=== PATIENT | male | born 1935 | race Caucasian/White ===

== ENCOUNTER → 2016-12-11 11:02 | Outpatient (CLI) | payer MEDICARE ==
[2010-04-17 06:03] VITALS: BMI 31.2
== END | disposition home or self-care (01) ==
LOC: D.CT 11:02
DX: I71.4 Abdominal aortic aneurysm, without rupture (principal)

== ENCOUNTER → 2016-12-25 09:45 | Outpatient (CLI) | payer MEDICARE ==
[2010-04-17 06:03] VITALS: BMI 31.2
== END | disposition home or self-care (01) ==
LOC: D.CT 09:45
DX: S89.91XA Unspecified injury of right lower leg, initial encounter (principal); X58.XXXA Exposure to other specified factors, initial encounter; Y93.89 Activity, other specified; Y92.89 Other specified places as the place of occurrence of the external cause

== ENCOUNTER → 2017-08-30 09:33 | Outpatient (CLI) | payer MEDICARE ==
[2010-04-17 06:03] VITALS: BMI 31.2
== END | disposition home or self-care (01) ==
LOC: D.CT 09:33
DX: I71.4 Abdominal aortic aneurysm, without rupture (principal)

== ENCOUNTER → 2018-05-28 13:02 | Outpatient (CLI) | payer MEDICARE ==
[2010-04-17 06:03] VITALS: BMI 31.2
== END | disposition home or self-care (01) ==
LOC: D.CT 05-26 11:30
DX: I71.4 Abdominal aortic aneurysm, without rupture (principal)

== ENCOUNTER → 2018-06-09 08:22 | Outpatient (CLI) | payer MEDICARE ==
[2010-04-17 06:03] VITALS: BMI 31.2
== END | disposition home or self-care (01) ==
LOC: D.RT 08:00
DX: R06.02 Shortness of breath (principal)

== ENCOUNTER → 2019-06-15 10:31 | Outpatient (CLI) | payer MEDICARE ==
[2010-04-17 06:03] VITALS: BMI 31.2
== END | disposition home or self-care (01) ==
LOC: D.US 10:00
PROVIDERS: ATTEND Internal Medicine Cardiovascular Disease
DX: I71.4 Abdominal aortic aneurysm, without rupture (principal)

== ENCOUNTER 2019-08-24 17:00 | Inpatient (IN) | payer MEDICARE ==
[2019-08-23 21:15] VITALS: BP 132/69
[2019-08-23 22:30] VITALS: BP 155/91
[2019-08-24] VITALS (22 sets, daily range): BP systolic 81–158; BP diastolic 39–101; BMI 32.3
[~2019-08-24] VITALS: Ht 182.9 cm; Wt 133.3 kg
--- NOTE | ~2019-08-24 | HEMODYNAMI ---
PATIENT:PAOLO WILLINGHAM MEDICAL RECORD: [id number] : 39 [id number] ADMISSION DATE: 08/24/19 Generatedon:09/07/201911:08 Patient name: PAOLO WILLINGHAM Patient #: [id number] : 1935 Date of study: 09/07/2019 Page: Of Hemodynamic Procedure Report Patient Data Patient Demographics Procedure consent was obtained First Name: PAOLO Gender: Male Last Name: MAULIK : 1935 Patient #: [id number] Age: 83 year(s) Race: Unknown SSN: [id number] Additional ID: [id number] Contact details [address]: [address] [place] [address] State: [place] City: [place] Zip code: [address] Past Medical History Allergies: No known allergies Admission Admission Data Admission Date: 08/24/2019 Admission Time: 17:37 Arrival Date: 09/07/2019 Arrival Time: 0:00 Room #: D.2303 Insurance Payor: Medicare [facility] #: [id number] Height (in.): 71.65 BSA: 2.46 (m2) Height (cm.): 182 BMI: 38.64 (kg/m2) Weight (lbs.): 282.19 Weight (kg.): 128 Lab Results Lab Result Date: 09/07/2019 Lab Result Time: 0:00 Biochemistry Name Units Result Min Max BUN mg/dl 28 --(----)-* 7 18 Creatinine mg/dl 0.7 --(*---)-- 0.6 1.3 eGFR ml/min 90 --(*---)-- 90 120 NONAFRICAN CBC Name Units Result Min Max Hemoglobin g/dl 12 *-(----)-- 13.5 17.5 Procedure Procedure Types Cath Procedure Diagnostic Procedure LHC Coronaries only Procedure Description Procedure Date Procedure Date: 09/07/2019 Procedure Start Time: 10:45 Procedure End Time: 11:06 Procedure Staff Name Function Terry Rose MD Performing Physician Shonna Solano RN Supervisor Felting Chely Wang RT Monitor Shonna Solano RN Nurse Lili Ibarra RT Scrub Procedure Data Cath Procedure Fluoroscopy Diagnostic fluoroscopy Total fluoroscopy Time: 6.3 time: 6.3 min min Diagnostic fluoroscopy Total fluoroscopy dose: dose: 1058 mGy 1058 mGy Contrast Material Contrast Material Type Amount (ml) Isovue 300 50 Entry Location Entry Primary Successful Side Size Upsize 1 Upsize Entry Closure Sanchez ccessful Closure Location (Fr) (Fr) 2 (Fr) Remarks Device Remarks Femoral Right 5 Fr 6 Fr 6 Fr Exoseal artery Mid-Length Short Estimated blood loss: 10 ml Diagnostic catheters Device Type Used For End Catheter Placement MULTIPACK JL 4.0 5Fr Procedure catheter MULTIPACK JL 4.0 5Fr Procedure catheter DIAGNOSTIC JL 6 5Fr Procedure catheter ([id number]) MULTIPACK 3DRC 5Fr Procedure catheter MULTIPACK Pigtail 5 Fr Procedure catheter Procedure Complications No complications Procedure Medications Medication Administration Route Dosage 0.9% NaCl I.V. Oxygen 100 Lidocaine 2% added to field 20 Heparin Flush Bag added to field 2 bags (1000units/500ml NS) Diprivan 1% I.V. 55 mcg/min (Propofol) Hemodynamics Rest BSA: 2.46 (m2) HGB: 12 (g/dl) O2 Consumption: Estimated: 272.86 (ml/min) O2 Cons umption indexed: Estimated:110.92 (ml/min/m) Heart Rate: 62 (bpm) Snapshots Pre Cath Intra NCS Post Cath Vital Signs Time Heart Resp SPO2 etCO2 NIBP (mmHg) Rhythm Pain Sedation Rate (ipm) (%) (mmHg) Status Level (bpm) 10:30:15 65 13 100 0 142/87(120) NSR 0 (11) 5(A) , No pain 10:34:33 63 13 98 0 140/81(119) NSR 0 (11) 5(A) , No pain 10:39:32 60 11 97 0 Measuring NSR 0 (11) 5(A) , No pain 10:39:38 59 10 97 0 126/72(97) NSR 0 (11) 5(A) , No pain 10:41:33 62 10 100 0 126/75(96) NSR 0 (11) 5(A) , No pain 10:45:47 63 16 98 0 114/70(86) NSR 0 (11) 5(A) , No pain 10:49:59 66 24 98 0 114/62(86) NSR 0 (11) 5(A) , No pain 10:54:11 60 12 97 0 107/64(85) NSR 0 (11) 5(A) , No pain 10:58:18 59 18 98 0 123/70(89) NSR 0 (11) 5(A) , No pain 11:02:30 63 13 98 0 126/73(102) NSR 0 (11) 5(A) , No pain 11:06:40 61 14 0 140/86(124) NSR 0 (11) 5(A) , No pain Medications Time Medication Route Dose Verified Delivered Reason Notes Effectiveness by by 10:37:21 0.9% NaCl I.V. kvo Terry Kilpatrick used for [facility] Solano procedure MD HURST 10:37:43 Oxygen ventilator 100 % Terry Kilpatrick used for FiO2 [facility] Jeff Solano procedure MD HURST 10:37:57 Lidocaine 2% added to 20ml Terry Stewart for local field vial [facility] John anesthetic MD ONTIVEROS 10:38:02 Diprivan 1% I.V. 55 Terry Stewart for infus ing (Propofol) mcg/min [facility] sedation upon MD ONTIVEROS arrival to 10:38:02 Heparin Flush added to 2 bags Terry Stewart used for Bag field [facility] procedure (1000units/500ml MD ONTIVEROS NS) Procedure Log Time Note 10:01:00 Arrival Date: 09/07/2019 12:00:00 AM 10:01:27 Patient Height : 71.65 inches 10:01:32 Patient Weight : 282.19 lbs 10:01:59 Insurance Payor : Medicare 10:02:42 Lab Result : eGFR NONAFRICAN 90 ml/min 10:02:42 Lab Result : Creatinine 0.7 mg/dl 10:02:42 Lab Result : BUN 28 mg/dl 10:02:42 Lab Result : Hemoglobin 12 g/dl 10:02:48 Diagnostic Cath Status : Elective 10:03:44 Procedure Status Elective Heart Cath (OP). 10:03:47 Shonna Solano RN sent for patient. Start room use. 10:03:59 Time tracking: Regular hours (M-F 7:00 - 5:00) 10:04:03 Plan of Care:Hemodynamics will remain stable., Cardiac rhythm will remain stable., Comfort level will be maintained., Respiratory function will remain adequate., Patient/ family verbilizes understanding of procedure., Procedure tolerated without complication., Recovers from procedure without complications.. 10:04:35 Patient received from ICU to CCL 2 On ventilator. Tansferred to table in Supine position. 10:25:34 Signed procedure consent form obtained from guardian. 10:25:35 Warm blankets applied, and michelle hugger turned on for patient comfort. 10:25:36 Correct patient and procedure confirmed by team. 10:25:37 ECG and BP/O2 sat monitors applied to patient. 10:25:38 Vital chart was started 10:26:11 H&P Date Dictated: 09/06/2019 Within 30 days and on chart., H&P Addendum completed by physician on day of procedure. (MUST COMPLETE FOR ALL OUTPATIENTS). 10:26:13 Pre-procedure instructions explained to patient. 10:26:20 Family unavailable. 10:26:31 Patient allergic to No known allergies 10:26:35 Is the patient allergic to Iodine/contrast media? No. 10:26:37 Was the patient premedicated? Yes 10:26:53 Is patient on blood thinner?No 10:26:56 Patient diabetic? No. 10:27:02 Previous problem with sedation/anesthesia? No ? 10:27:04 Snore? Unknown 10:27:06 Sleep apnea? Unknown 10:27:11 Airway obstruction? Yes ? 10:27:15 Dentures? Unknown ? 10:27:31 IV patent on arrival in right hand with 0.9% NaCl at [facility]. 10:27:39 Lab results completed and on chart. 10:27:45 Stress Test: no; N/A ? 10:27:50 Right groin area was prepped with chlora-prep and draped in sterile fashion 10:27:52 Alarms reviewed by R. N. 10:27:52 Sharps counted by scrub and verified by R.N. 10:28:00 Physician paged 10:30:13 mahan cath not in pt. Shonna HURST placed a new one. 10:30:38 MAHAN 16FR w/Drainage Bag ([id number]) opened to sterile field. 10:34:27 16fr standard mahan inserted no resistance no urine obtained. 10:34:50 Physician arrived 10:34:50 --------ALL STOP TIME OUT------ 10:34:51 Final Timeout: patient, procedure, and site verified with staff and physician. All members of the team are in agreement. 10:34:56 Right groin site verified by team. 10:35:01 Fire Safety Assessment: A--An alcohol-based skin anteseptic being used preoperatively., C--Open oxygen or nitrous oxide is being used., D--An ESU, laser, or fiber-optic light is being used. 10:35:12 Physical assessment completed. ASA score P 4 - A patient with severe systemic disease that is a constant threat to life as per Terry Rose MD. 10:35:18 1) 90+ Normal kidney functon but urine findings or structural abnormalities or genetic trait point to kidney disease. 10:35:22 Maximum allowable contrast dose (3.7 X eGFR X 0.75)250 ml. 10:35:27 Sedation plan: IV Moderate Sedation Medication:Versed, Fentanyl 10:37:21 0.9% NaCl kvo I.V. was administered by Shonna Solano RN; used for procedure; Verbal order read back and verified. 10:37:43 Oxygen 100 % FiO2 ventilator was administered by Shonna Solano RN; used for procedure; Verbal order read back and verified. 10:37:57 Lidocaine 2% 20ml vial added to field was administered by Terry Rose MD; for local anesthetic; Verbal order read back and verified. 10:38:02 Diprivan 1% (Propofol) 55 mcg/min I.V. was administered by Terry Rose MD; for sedation; infusing upon arrival to Verbal order read back and verified. 10:38:02 Heparin Flush Bag (1000units/500ml NS) 2 bags added to field was administered by Terry Rose MD; used for procedure; Verbal order read back and verified. 10:39:48 Use device set Femoral Dx 10:39:49 ACIST Syringe (80537) opened to sterile field. 10:39:49 Bag Decanter (2002S) opened to sterile field. 10:39:50 Medline Cath Pack ([id number]) opened to sterile field. 10:39:51 ACIST Hand Control (84892) opened to sterile field. 10:39:52 ACIST Manifold (77399) opened to sterile field. 10:39:53 DIAGNOSTIC Multipack 5Fr catheter set ([id number]) opened to sterile field. 10:39:54 Tegaderm 4 x 4 (1626W) opened to sterile field. 10:39:56 SHEATH 5FR [place] ([id number]) opened to sterile field. 10:39:57 EMERALD Guide Wire (121-377) opened to sterile field. 10:40:48 Pt received from ICU on vent/ sedated w/ propofol infusing at 55mcg/kg/min upon arrival. EtCO2 DONNA d/t vent. All VSS. 10:40:53 Baseline sample Acquired. 10:40:58 Rhythm: sinus rhythm 10:41:00 Full Disclosure recording started 10:45:22 Procedure started. 10:45:24 Zero performed for pressure channel P1 10:45:28 Zero performed for pressure channel P1 10:45:37 Zero performed for pressure channel P1 10:45:48 Zero performed for pressure channel P1 10:45:59 Local anesthetic to right femoral artery with Lidocaine 2% by Terry Rose MD.INITIAL ACCESS ONLY 10:46:15 A 5 Fr sheath was inserted into the Right Femoral artery 10:46:24 A MULTIPACK JL 4.0 5Fr catheter was advanced over the wire and used for Procedure. 10:48:35 Catheter removed. 10:49:33 SHEATH 6FR Destination (RSR01) opened to sterile field. 10:49:48 Sheath upsized to a 6 Fr Mid-Length. 10:50:17 A MULTIPACK JL 4.0 5Fr catheter was advanced over the wire and used for Procedure. 10:52:14 Catheter removed. 10:53:18 A DIAGNOSTIC JL 6 5Fr catheter ([id number]) was advanced over the wire and used for Procedure. 10:53:22 LCA angiography performed. 10:54:46 Catheter removed. 10:55:19 A MULTIPACK 3DRC 5Fr catheter was advanced over the wire and used for Procedure. 10:55:52 RCA angiography performed. 10:57:02 Catheter removed. 10:57:10 A MULTIPACK Pigtail 5 Fr catheter was advanced over the wire and used for Procedure. 10:59:45 pigtail unable to cross valve. 10:59:46 Catheter removed. 10:59:56 Sheath upsized to a 6 Fr Short. 11:00:15 EXOSEAL 6Fr (EX600) opened to sterile field. 11:01:02 Catheter removed. 11:01:12 Sheath removed intact; hemostasis achieved with Exoseal to the Right Femoral artery. 11:01:14 Procedure ended.(Physican Out) 11:01:25 Fluoroscopy time 06.30 minutes. 11::29 Fluoroscopy dose: 1058 mGy 11::29 Flurop Dose total: 1058 11::34 Dose Area Product 25044 mGy/cm. 11:01:44 Contrast amount:Isovue 300 50ml. 11:01:46 Maximum allowable dose exceeded? No. 11:01:47 Sharps counted by scrub and verified by R.N. 11:01:49 Insertion/operative site no bleeding no hematoma. 11:01:51 Post Procedure Pulses reassessed and unchanged 11:02:01 Post-procedure physical assessment completed. ASA score P 3 - A patient with severe systemic disease as per Terry Rose MD. 11:02:05 Post procedure rhythm: unchanged. 11:02:27 Estimated blood loss: 10 ml 11:02:28 Post procedure instruction explained to patient.Patient verbalizes understanding. 11:02:35 Patient needs reinforcement of post procedure teaching. 11:02:48 Procedure type changed to Cath procedure, Diagnostic procedure, LHC, Coronaries only 11:02:50 Procedure and supply charges have been captured, reviewed, submitted and are correct. 11:05:31 Procedure and supply charges have been captured, reviewed, submitted and are correct. 11:05:59 Procedure Complication : No complications 11:06:02 Vital chart was stopped 11:06:07 [facility] Findings: mild to moderate CAD (<70%) 11:06:09 Operative report dictated upon procedure completion. 11:06:10 See physician's report for complete and final results. 11:06:16 Report given to ICU. 11:06:30 skin tear on right groin 11:06:35 Patient transfered to ICU with Bed. 11:06:44 Procedure ended. 11:06:44 Full Disclosure recording stopped 11:06:50 End room use (Document Last) Device Usage Item Name Manufacture Quantity Catalog Hospital Part Current Minimal L ot# / Number Charge Number Stock Stock Serial# Code KALLI 16FR Bard 1 [id number] 510710 883160 5 w/Drainage Bag ([id number]) ACIST Acist 1 33940 427132 006467 363423 20 Syringe Medical (39893) Systems Inc Bag Microtek 1 2001S 094619 43583 245517 5 Decanter Medical Inc. (2001S) Medline Medline 1 [id number] 436941 55123 378134 5 Cath Pack ([id number]) ACIST Hand Acist 1 25187 805301 237309 222712 5 Control Medical (03594) Systems Inc ACIST Acist 1 00090 120587 257799 911228 5 Manifold Medical (84186) Systems Inc DIAGNOSTIC Cardinal 1 [id number] 508604 18561 091354 30 Multipack Health 5Fr catheter set (VP4713) Tegaderm 4 3M 1 1626W 105242 681223 689965 5 x 4 (1626W) SHEATH 5FR Terumo 1 ZLP106 758146 275533 796010 5 [place] (HJF643) EMERALD Cardinal 1 502-455 876476 547863 578256 5 Guide Wire Health (502-455) MULTIPACK Cardinal 1 693797 5 JL 4.0 5Fr Health catheter SHEATH 6FR Terumo 1 RSR01 835263 40930 975791 5 Destination (RSR01) DIAGNOSTIC Cardinal 1 [id number] 599168 534922 802929 5 JL 6 5Fr Health catheter (316911P) MULTIPACK Cardinal 1 900757 5 3DRC 5Fr Health catheter MULTIPACK Cardinal 1 194474 5 Pigtail 5 Health Fr catheter EXOSEAL 6Fr Cardinal 1 EX600 931954 874791 652945 10 (EX600) Health Signature Audit [place] Stage Time Signature Unsigned Intra-Procedure 09/07/2019 Chely Wang 11:07:16 AM RT(R) Intra-Procedure 09/07/2019 Shonna Solano 11:07:54 AM RN Intra-Procedure 09/07/2019 Terry Carey 11:08:30 AM Jeff ONTIVEROS Signatures Performing Physician : Signature : Terry Rose MD Date : Time : Monitor : Chely Felipe Signature : RT Date : Time : Nurse : Shonna Russ RN Signature : Date : Time : [address] [place] [address]
[2019-08-24] MEDS ORDERED: LASIX40 MG PO (17:07)
[2019-08-24] MEDS ORDERED: SYNTHROID75 MCG PO (17:07)
[2019-08-24] MEDS ORDERED: CARTIA XT240 MG PO (17:07)
[2019-08-24] MEDS ORDERED: DIOVAN80 MG PO (17:08)
[2019-08-24] MEDS ORDERED: K-TAB10 MEQ PO (17:08)
[2019-08-24 17:27] LABS: BASOPHILS 0.4 % (0-2); EOSINOPHILS 0 % (0-7); HEMATOCRIT 50.7 % (42.0-54.0); HEMOGLOBIN 14.8 g/dL (13.5-17.5); IMMATURE GRANULOCYTES 4.1 % (0-5); LYMPHOCYTES 8.4 % (15-50); MCH 31.8 pg (26.0-34.0); MCHC 29.2 g/dL (31.0-37.0); MCV 108.8 fL (80.0-100.0); MEAN PLATELET VOLUME 10.5 fL (7.4-10.4); MONOCYTES 19.3 % (2-11); NEUTROPHILS 67.8 % (40-80); PLATELET COUNT 161 10x3/uL (130-400); RBC 4.66 10x6/uL (4.20-6.10); RDW 14.1 % (11.5-14.5); WBC 9.6 10x3/uL (4.8-10.8)
[2019-08-24 17:38] LABS: APTT 44.7 SECONDS (22.8-39.4); INR 1.08 (0.85-1.17); PROTIME 13.9 SECONDS (11.6-15.0)
[2019-08-24 17:47] LABS: BILIRUBIN NEGATIVE (NEGATIVE); GLUCOSE NEGATIVE (NEGATIVE); KETONE NEGATIVE (NEGATIVE); NITRITE NEGATIVE (NEGATIVE); SPECIFIC GRAVITY 1.025 (1.005-1.020); UROBILINOGEN NORMAL (NORMAL)
[2019-08-24 17:48] LABS: RED CELLS - URINE 0-5 /hpf (0-5); WHITE CELLS - URINE >50 /hpf (NEGATIVE)
[2019-08-24 17:49] LABS: BACTERIA FEW /hpf (NEGATIVE)
[2019-08-24 18:02] LABS: ALKALINE PHOSPHATASE 132 U/L (30-120); ALT (SGPT) 17 U/L (10-68); BILIRUBIN - TOTAL 0.33 mg/dL (0.2-1.3); CALCIUM 9.3 mg/dL (8.5-10.1); CARBON DIOXIDE 34.2 mmol/L (21.0-32.0); CHLORIDE - SERUM 108 mmol/L (98-107); CKMB 1.3 U/L (0.0-3.6); CREATINE KINASE 169 UL (21-232); CREATININE - SERUM 3.1 mg/dL (0.6-1.3); PROTEIN - SERUM 7.3 g/dL (6.4-8.2); SODIUM 150 mmol/L (136-145); UREA NITROGEN 28 mg/dL (7-18); eGFR NON AFRICAN AMERICAN 21 mL/min (90-120)
[2019-08-24 18:07] LABS: CALC OSMOLALITY 309 mosm/kg (275-300); GLUCOSE 210 mg/dL (74-106)
[2019-08-24 18:08] LABS: TROPONIN-I 0.073 ng/mL (0.000-0.060)
--- NOTE | 2019-08-24 18:15 | NUR ---
FAMILY AT BEDSIDE.
--- NOTE | 2019-08-24 18:36 | NUR ---
PROPOFOL TO LEFT FOREARM AT 7.3 ML/HR OR 10 MCG/KG/MIN. NOREPI TO RIGHT FOREARM AT 22.5 MCG/MIN AND VANC TO LEFT FOREARM.
--- NOTE | 2019-08-24 18:46 | NUR ---
REPORT CALLED TO ARIS LUCERO. STATES YADIEL WILL BE HIS NURSE. PT IS GOING TO ROOM 2301 PER NIC.
[2019-08-24 18:53] LABS: UDS - AMPHET NEGATIVE QUAL (NEGATIVE); UDS - BARB NEGATIVE QUAL (NEGATIVE); UDS - BENZO NEGATIVE QUAL (NEGATIVE); UDS - COCAINE NEGATIVE QUAL (NEGATIVE); UDS - OPIATE NEGATIVE QUAL (NEGATIVE); UDS - PCP NEGATIVE QUAL (NEGATIVE); UDS - THC NEGATIVE QUAL (NEGATIVE)
--- NOTE | 2019-08-24 19:21 | NUR ---
Patient arrived to unit via stretcher with ADULT [employer] IN[employer] and RT at bedside. On vent ETT 7.5 and 26 at the lip. A/C rate of 20, Fi02 60%, TV 600, and PEEP 7. GCS of 7. Pupils are equal at 2 and fixed. Localalizes painful stimuli however does not open eyes. Rt forearm PIV infusing Propofol @ 10 mcg/min. Lt forearm PIV infusing Levophed @ 22.5 mcg/min. Lung sounds are with rhonchi throughout. Sputum is thick and white. NGT in the RT nare to LIS with brown output in suction canister. Bruce catheter in place with minimal urine output; urine in the collection chamber is concentrated. Generalized edema noted. Red area noted to the LT buttock; skin does kenya. Monitoring equipment on and functioning properly. Sinus rhythm noted on cardiac cath technologist. Bed in low position. Will monitor closely.
[2019-08-24] MEDS ORDERED: IBUPROFEN800 MG PO (20:14)
--- NOTE | 2019-08-24 20:14 | NUR ---
Patient transported to CT on vent. RT at bedside to assist.
[2019-08-24] MEDS ORDERED: BAYER CHEWABLE81 MG PO (20:17)
--- NOTE | 2019-08-24 20:40 | NUR ---
Son Geraldo and nephew Brett at bedside. Gave update to patient condition and disscussed futher plan of care with family members. Both family members left contact numbers in order to be reached at and I will list below. Geraldo ([phone]) Brett ([phone]) Son states that he lives approx 2 hours away and that if a family member needed to be present on an emergent situation that Brett would be available as he lives here in [place].
--- NOTE | 2019-08-24 21:47 | NUR ---
Titrated levophed down to 17mcg/min. VSS. Will continue to monitor.
[2019-08-25] VITALS (22 sets, daily range): BP systolic 101–154; BP diastolic 62–90; BMI 32.3
--- NOTE | 2019-08-25 00:12 | NUR ---
Titrated levophed down to 5 mcg/min. VSS. Will continue to monitor.
[2019-08-25 00:56] LABS: CKMB 11.6 U/L (0.0-3.6)
[2019-08-25 01:03] LABS: CREATINE KINASE 1619 UL (21-232); TROPONIN-I 0.389 ng/mL (0.000-0.060)
--- NOTE | 2019-08-25 01:56 | NUR ---
Patient opening eyes spontaneously and biting down on ETT. Appears aggitated. Propofol titrated up to 20 mcg/kg/min. Will monitor effects of titration.
--- NOTE | 2019-08-25 02:53 | NUR ---
Patient appears to be resting on vent more comfortably since titrating propofol gtt. No obvious sign of distress noted. Bed in low position.
--- NOTE | 2019-08-25 04:10 | NUR ---
RT at bedside for ABG's per order.
[2019-08-25 06:14] LABS: BASOPHILS 0.1 % (0-2); EOSINOPHILS 0 % (0-7); HEMATOCRIT 42.4 % (42.0-54.0); HEMOGLOBIN 13.4 g/dL (13.5-17.5); IMMATURE GRANULOCYTES 0.4 % (0-5); LYMPHOCYTES 4.6 % (15-50); MCH 31.4 pg (26.0-34.0); MCHC 31.6 g/dL (31.0-37.0); MEAN PLATELET VOLUME 10.1 fL (7.4-10.4); MONOCYTES 6.7 % (2-11); NEUTROPHILS 88.2 % (40-80); RBC 4.27 10x6/uL (4.20-6.10); RDW 13.9 % (11.5-14.5); WBC 11.2 10x3/uL (4.8-10.8)
[2019-08-25 06:23] LABS: MCV 99.3 fL (80.0-100.0); PLATELET COUNT 125 10x3/uL (130-400)
[2019-08-25 06:59] LABS: ALBUMIN 2.4 g/dL (3.4-5.0); ALKALINE PHOSPHATASE 83 U/L (30-120); ALT (SGPT) 20 U/L (10-68); BILIRUBIN - TOTAL 0.78 mg/dL (0.2-1.3); CALCIUM 8.6 mg/dL (8.5-10.1); CARBON DIOXIDE 34.1 mmol/L (21.0-32.0); CHLORIDE - SERUM 109 mmol/L (98-107); CKMB 9.3 U/L (0.0-3.6); CREATININE - SERUM 3.1 mg/dL (0.6-1.3); MAGNESIUM - SERUM 2.5 mg/dL (1.8-2.4); PHOSPHOROUS 1.7 mg/dL (2.5-4.9); POTASSIUM - SERUM 4.5 mmol/L (3.5-5.1); PRO BNP 3382 pg/mL (0-450); PROTEIN - SERUM 5.8 g/dL (6.4-8.2); SODIUM 148 mmol/L (136-145); THYROID STIMULATING HORMONE 0.76 uIU/mL (0.36-3.74); eGFR NON AFRICAN AMERICAN 21 mL/min (90-120)
[2019-08-25 07:05] LABS: CALC OSMOLALITY 306 mosm/kg (275-300); CREATINE KINASE 2120 UL (21-232); GLUCOSE 160 mg/dL (74-106); TROPONIN-I 0.892 ng/mL (0.000-0.060); UREA NITROGEN 40 mg/dL (7-18)
--- NOTE | 2019-08-25 07:53 | NUR ---
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 REPOSITIIONED PATIENT FACIAL AND ORAL CARE PROVIDED MAHAN CARE COMPLETE
--- NOTE | 2019-08-25 07:55 | NUR ---
[address] HERNANDEZ OF [facility] OF [facility] OF 4.5 NO NEW ORDERS NOTED
--- NOTE | 2019-08-25 10:14 | NUR ---
1132 DR TONEY AT BEDSIDE UPDATING FAMILY MEMBER PROPOFOL TURNED OFF PER MD REQUEST EYES OPEN TO SPEECH WILL NOT TRACK
--- NOTE | 2019-08-25 10:15 | NUR ---
1015 DR ARIAS AT BEDSIDE ASSESSING PATIENT PATIENT MOVES LEGS ON BED CHEWING ON ETT
[2019-08-25 12:10] LABS: CKMB 5.2 U/L (0.0-3.6)
[2019-08-25 12:12] LABS: CREATINE KINASE 1845 UL (21-232); TROPONIN-I 1.195 ng/mL (0.000-0.060)
--- NOTE | 2019-08-25 14:25 | NUR ---
1427 DR GOLDEN SAID NO NEED TO DO ANY MORE EKGs
--- NOTE | 2019-08-25 15:00 | NUR ---
1135 TURNED PROPOFOL BACK ON FOR SEDATION PT WAS CHEWING ON EET AND APPEARED AGITATED HEART RATE INCREASING AND RR UP IN THE 30s REQUEST WAS MADE BY RT.
--- NOTE | 2019-08-25 15:04 | NUR ---
1300 DR TONEY INQUIRING ABOUT BEHAVIOR OF PATIENT WHEN THE SEDATION WAS PUT ON HOLD
--- NOTE | 2019-08-25 15:07 | NUR ---
1429 DR GOLDEN ROUNDING ON PATIENT FOR CONSULT. DR GOLDEN SUGGESTED THAT HE MAY DO HEART CATH ON SATURDAY CONSENTS PRINTED OUT REQUESTED BY DR GOLDEN
--- NOTE | 2019-08-25 15:10 | NUR ---
1500 REPOSITIONED PAIENT PROVIIDED FACIAL AND ORAL CARE. WASHED PATIENTS HAIR
--- NOTE | 2019-08-25 15:40 | MORECARE ---
CASE MANAGEMENT DISCHARGE SUMMARY PATIENT: PAOLO WILLINGHAM UNIT: [id number] ADM DATE: 08/24/19 AGE: 83 : 37 SEX: M ROOM/BED: D.2301 AUTHOR: TIARRA WEBB PHYSICIAN: REFERRING PHYSICIAN: SHILO HERNANDEZ MD DATE OF SERVICE: 08/25/19 Discharge Plan Patient Name: PAOLO WILLINGHAM Facility: [facility]:[place] : 1935 Planned Disposition: Home with Home Health Anticipated Discharge Date: Discharge Date: Expected LOS: Initial Reviewer: [email or web address] Initial Review Date: 08/24/2019 Generated: 08/25/19 4:40 pm Comments DCP- Discharge Planning Updated by [email or web address]: Romy Main on 08/25/19 2:[address] CM attempted to complete discharge planning assessment. Patient is currently on vent and sedated. No family available. CM attempted to call nephjoão Willingham [phone] but didn't get an answer. CM will continue to follow and assist as needed with discharge planning / needs. CM received a call from [facility] that the patient was under their care. They plan to resume care with him upon discharge. DCPIA - Discharge Planning Initial Assessment Updated by [email or web address]: Romy Main on 08/25/19 3:29 pm * Is the patient Alert and Oriented? Yes * How many steps to enter\exit or inside your home? Patient Name: PAOLO WILLINGHAM Page [phone] at 1540 All edits/amendments must be made on the electronic document DICTATION DATE: 08/25/19 1540 ONCOLOGY SOCIAL WORK: DOUG 08/25/19 1540 RPT#: [id number] DC DATE: STATUS: ADM IN [facility] [address] [place] [address] END OF REPORT
--- NOTE | 2019-08-25 18:52 | NUR ---
1720 TAKEN TO RADIOLOGY VIA BED FOR VQ SCAN
--- NOTE | 2019-08-25 18:52 | NUR ---
1745 RETURNED TO ROOM
--- NOTE | 2019-08-25 20:05 | NUR ---
Patient resting comfortably on vent. Opens eyes to verbal stimuli. Does not follow commands. No obivous signs of distress noted. VSS. Bed in low position. Will continue to monitor.
--- NOTE | 2019-08-25 22:25 | NUR ---
RT at bedside. Fi02 turned down to 40%.
[2019-08-26] VITALS (24 sets, daily range): BP systolic 94–156; BP diastolic 52–105
[2019-08-26 04:11] LABS: BASOPHILS 0 % (0-2); EOSINOPHILS 0 % (0-7); HEMOGLOBIN 12.6 g/dL (13.5-17.5); IMMATURE GRANULOCYTES 0.3 % (0-5); LYMPHOCYTES 2.8 % (15-50); MCH 31.1 pg (26.0-34.0); MCHC 33.2 g/dL (31.0-37.0); MEAN PLATELET VOLUME 10.4 fL (7.4-10.4); MONOCYTES 4.5 % (2-11); NEUTROPHILS 92.4 % (40-80); PLATELET COUNT 123 10x3/uL (130-400); RBC 4.05 10x6/uL (4.20-6.10); RDW 14.3 % (11.5-14.5)
[2019-08-26 04:12] LABS: MCV 93.8 fL (80.0-100.0); WBC 15.5 10x3/uL (4.8-10.8)
[2019-08-26 04:24] LABS: ALBUMIN 2.1 g/dL (3.4-5.0); ANION GAP 12.2 mmol/L (8-16); BILIRUBIN - TOTAL 0.48 mg/dL (0.2-1.3); CALCIUM 8.3 mg/dL (8.5-10.1); CARBON DIOXIDE 30.5 mmol/L (21.0-32.0); CREATININE - SERUM 3.4 mg/dL (0.6-1.3); MAGNESIUM - SERUM 2.5 mg/dL (1.8-2.4); PROTEIN - SERUM 5.4 g/dL (6.4-8.2); VANCOMYCIN - RANDOM 6.4 ug/mL (10.0-20.0)
[2019-08-26 04:29] LABS: PHOSPHOROUS 2.5 mg/dL (2.5-4.9); POTASSIUM - SERUM 3.7 mmol/L (3.5-5.1)
--- NOTE | 2019-08-26 07:00 | NUR ---
BECOMES RESTLESS, MOVING ALL EXTREMITIES WHEN DISTURBED. DOES NOT OBEY COMMANDS, TRIED TO OPEN EYES WHEN ASKED TOO. ETT SECURE TO VENT. BILATERAL LUNG SOUNDS EQUAL. ABD LARGE DITENEDED LOOKING, NG TO LOW INTERMITTENT SUCTION WITH GREEN DRAINAGE IN TUBING. MAHAN CATH PATENT. DIPRIVAN INFUSING AT 20 MCG/KG/MIN PER RIGHT FOREARM AND 1/2 NS AT 100 ML HOUR. NO SWELLING OR REDNESS NOTED. SCD ON LOWER LEGS. TIGHT MUSCLES WHEN REPOSITIONED. HEAD OF BED ELEVATED 30 DEGREES
--- NOTE | 2019-08-26 09:00 | NUR ---
COMPLETE HIBCLENS BATH GIVEN, MAHAN CATH CARE. NYSTATIN POWDER TO GROIN, UNDER BREAST FOR RED RASH AREA. PATEINT TOLERATES POORLY BECOMES RESTLESS. DIPRIVAN BOLUS GIVEN. NO SKIN BREAKDOWN NOTED. SCD REAPPLIED TO LOWER LEGS. FAMILY HERE UPDATE GIVEN.
--- NOTE | 2019-08-26 09:30 | NUR ---
DIPRIVAN TURNED DOWN TO 5 MCG/KG/MIN FOR CPAP TRAIL.
--- NOTE | 2019-08-26 10:30 | NUR ---
DIPIRVAN TURNED OFF.
--- NOTE | 2019-08-26 11:00 | NUR ---
TOLERATING CPAP ON VENT RESP 16. TV GREATER THAN 1000ML. NO DISTRESS AT THIS TIME
--- NOTE | 2019-08-26 12:30 | NUR ---
Nutrition follow-up: CPAP trials today NPO Labs reviewed Wt: 238# Will need nutrition support started within 24 hours if pt remains intubated. RDN following.
--- NOTE | 2019-08-26 12:30 | NUR ---
PATIENT RESP RATE IN 40'S, HEART RATE 117, BLOOD PRESSURE 150/100'S, SEDATION RETURNED. TO 20 MCQ KG/MIN. BACK ON AC WITH SAME SETTINGS. FAMILY HERE UPDATE GIVEN
--- NOTE | 2019-08-26 12:44 | NUR ---
DR. HERNANDEZ NOTIFIED OF ELEVATED TEMP. ORDERS RECEIVED.
--- NOTE | 2019-08-26 13:59 | NUR ---
TYLENOL RECTAL SUPP GIVEN FOR ELEVATED TEMP. TOLERATED FAIR. RESTING COMFORTABLY ON DIPRIVAN AT 20 MCG/KG/MIN. NEW DIPRIVAN TUBING
--- NOTE | 2019-08-26 15:00 | NUR ---
became restless when oral care performed. reaches for ett when stimulated. temp down
--- NOTE | 2019-08-26 19:00 | NUR ---
REPORT RECEIVED. PT SEDATED, ON VENT. AROUSES TO VOICE, NO ACUTE DISTRESS NOTED. SOFT WRIST RESTRAINTS BILAT IN PLACE, PIV IN LEFT WRIST AND RT HAND INFUSING, SEE IV FLOWSHEET. ASSESSMENT COMPLETED, SEE FLOWSHEET. NO ACUTE DISTRESS NOTED. WILL CONTINUE TO MONITOR.
--- NOTE | 2019-08-26 21:00 | NUR ---
REPOSITIONED FOR COMFORT, PT SEDATED, AROUSES TO VOICE.
--- NOTE | 2019-08-26 23:00 | NUR ---
PT REPOSITIONED FOR COMFORT, NO ACUTE DISTRESS NOTED.
[2019-08-27] VITALS (24 sets, daily range): BP systolic 117–161; BP diastolic 50–101
--- NOTE | 2019-08-27 01:00 | NUR ---
AROUSES TO VERBAL STIMULI. REMAINS SEDATED AND ON VENT. RESTRAINTS REMOVED AND THAN PLACED BACK IN PLACE. REPOSITIONED FOR COMFORT.
--- NOTE | 2019-08-27 03:00 | NUR ---
LAYING IN BED WITH EYES CLOSED. OPENS EYES WITH VERBAL STIMULI. RESTRAINS REMOVED AND REPOSITIONED PT. RESTRAINTS PUT BACK IN PLACE. PUTS LEFT LEG OFF BED. PLACED BACK ON BED AND CONT TO PUT LEG OFF BED. NO OBVIOUS S/S OF DISTRESS OBSERVED.
[2019-08-27 04:22] LABS: BASOPHILS 0 % (0-2); EOSINOPHILS 0 % (0-7); HEMATOCRIT 36.5 % (42.0-54.0); HEMOGLOBIN 12.7 g/dL (13.5-17.5); IMMATURE GRANULOCYTES 0.2 % (0-5); LYMPHOCYTES 2.6 % (15-50); MCH 31.6 pg (26.0-34.0); MCHC 34.8 g/dL (31.0-37.0); MCV 90.8 fL (80.0-100.0); MEAN PLATELET VOLUME 10.7 fL (7.4-10.4); MONOCYTES 6.8 % (2-11); NEUTROPHILS 90.4 % (40-80); PLATELET COUNT 110 10x3/uL (130-400); RBC 4.02 10x6/uL (4.20-6.10); WBC 12.4 10x3/uL (4.8-10.8)
[2019-08-27 04:46] LABS: ALBUMIN 2.3 g/dL (3.4-5.0); ANION GAP 11.2 mmol/L (8-16); BILIRUBIN - TOTAL 0.54 mg/dL (0.2-1.3); CALCIUM 7.9 mg/dL (8.5-10.1); CARBON DIOXIDE 30.9 mmol/L (21.0-32.0); CREATININE - SERUM 2.6 mg/dL (0.6-1.3); MAGNESIUM - SERUM 2.6 mg/dL (1.8-2.4); PROTEIN - SERUM 5.6 g/dL (6.4-8.2); VANCOMYCIN - RANDOM 11.5 ug/mL (10.0-20.0)
[2019-08-27 04:47] LABS: PHOSPHOROUS 3.6 mg/dL (2.5-4.9); POTASSIUM - SERUM 3.1 mmol/L (3.5-5.1)
--- NOTE | 2019-08-27 07:00 | NUR ---
ASSESSMENT COMPLETE PER FLOWSHEET. PT ON VENT.
--- NOTE | 2019-08-27 11:58 | NUR ---
EXTUBATED TO 12/5 40 PERCENT FIO2 BIPAP.
--- NOTE | 2019-08-27 13:37 | NUR ---
IV OUT PER PATIENT. RESITED L WRIST.
--- NOTE | 2019-08-27 14:00 | NUR ---
1400 08/25/19 VS 102/62 MAP 73 HR 90 02 SAT 100%
--- NOTE | 2019-08-27 14:53 | NUR ---
BIPAP ON AT 40 PERCENT. O2 SAT 99 PERCENT. PT VOICES NO C/O AT TIME.
--- NOTE | 2019-08-27 18:36 | MORECARE ---
CASE MANAGEMENT DISCHARGE SUMMARY PATIENT: PAOLO WILLINGHAM UNIT: [id number] ADM DATE: 08/24/19 AGE: 83 : 37 SEX: M ROOM/BED: D.2301 AUTHOR: JON,DOC PHYSICIAN: REFERRING PHYSICIAN: SHILO HERNANDEZ MD DATE OF SERVICE: 08/27/19 Discharge Plan Patient Name: PAOLO WILLINGHAM Facility: [facility]:[place] : 1935 Planned Disposition: Home with Home Health Anticipated Discharge Date: Discharge Date: Expected LOS: Initial Reviewer: [email or web address] Initial Review Date: 08/24/2019 Generated: 08/27/19 7:36 pm DCP- Discharge Planning Updated by GIL Main on 08/25/19 2:[address] CM attempted to complete discharge planning assessment. Patient is currently on vent and sedated. No family available. CM attempted to call nephjoão Willingham [phone] but didn't get an answer. CM will continue to follow and assist as needed with discharge planning / needs. CM received a call from [facility] that the patient was under their care. They plan to resume care with him upon discharge. DCPIA - Discharge Planning Initial Assessment Updated by [id number]: Romy Main on 08/27/19 6:31 pm * Is the patient Alert and Oriented? No * How many steps to enter\exit or inside your home? * PCP JASMIN JHA * Pharmacy [facility] / [facility] * Preadmission Environment Home Alone * ADLs Independent * Other Equipment HOME/ PORTABLE 02, NEBULIZER * List name and contact numbers for known caregivers / representatives who currently or will assist patient after discharge: BRETT Mustafa NEPHEW - [phone] SANDRO WILLINGHAM SON - [phone] * Verbal permission to speak to the caregivers and representatives has been obtained from the patient. N/A * Community resources currently utilized Home Health * Please name any agencies selected above. [facility] * Additional services required to return to the preadmission environment? No * Can the patient safely return to the preadmission environment? Yes * Has this patient been hospitalized within the prior 30 days at any hospital? No Coverage Notice Reviewer: [id number] - Romy Warer Notice Issued Date-Time: 08/27/2019 18:24 Notice Type: Patient Choice Letter Notice Delivered To: Family Member Relationship to Patient: Nephew Online Banking Specialist Name: Brett Willingham Delivery Method: HAND - Hand Delivered Lisa Days: Prior Verbal Notification: Recipient Understood Notice: Yes Recipient Signature: Yes Med Rec Note Co-signed by Attending: Coverage Notice Comment: [facility] Last DP export: 08/25/19 2:40 p Patient Name: PAOLO WILLINGHAM Page [id number] at 1836 All edits/amendments must be made on the electronic document DICTATION DATE: 08/27/191835 INSURANCE HEALTHCARE CONSULTANT: DOUG 08/27/191835 RPT#: [id number] DC DATE: STATUS: ADM IN [facility] [address] [place] [address] END OF REPORT
--- NOTE | 2019-08-27 18:43 | MORECARE ---
CASE MANAGEMENT DISCHARGE SUMMARY PATIENT: PAOLO WILLINGHAM UNIT: [id number] ADM DATE: 08/24/19 AGE: 83 : 37 SEX: M ROOM/BED: D.2301 AUTHOR: JON,DOC PHYSICIAN: REFERRING PHYSICIAN: SHILO HERNANDEZ MD DATE OF SERVICE: 08/27/19 Discharge Plan Patient Name: PAOLO WILLINGHAM Facility: [facility]:[place] : 1935 Planned Disposition: Home with Home Health Anticipated Discharge Date: Discharge Date: Expected LOS: Initial Reviewer: [email or web address] Initial Review Date: 08/24/2019 Generated: 08/27/19 7:43 pm Comments DCP- Discharge Planning Updated by [email or web address]: Romy Main on 08/27/19 5:[address] Patient Name: PAOLO WILLINGHAM Admission Status: ER Accout number: [id number] Admission Date: 08-24-2019 : 1935 Admission Diagnosis:SEPSIS, UNSPECIFIED ORGANISM Attending: SHILO HERNANDEZ Current LOS: 3 Anticipated DC Date: Planned Disposition: Home with Home Health Primary Insurance: [facility] [employer] Discharge Planning Comments: CM met with patient and lisseth Brett Wright to complete initial dc planning assessment. CM educated patient on the CM role and verbal consent given by patient to complete assessment. CM verified patient's address, phone number, and emergency contact phone numbers. Patient lives at home independently. Patient live in small apartment on Brett's property. CM discussed availability of home health, rehab services, and medical equipment. Patient has home health with [facility] and plans to resume upon discharge. DEBBIE signed. Patient has home / portable 02and nebulizer with unknown provider. Brett is concerned that patient may require more care that HH can provide upon discharge. CM explained that we will re-evaluate closer to discharge. CM will continue to follow and will assist as needed with dc plans/needs. Warehouse Clerk: Romy Main DCP- Discharge Planning Updated by [id number]: Romy Main on 08/25/19 2:[address] CM attempted to complete discharge planning assessment. Patient is currently on vent and sedated. No family available. CM attempted to call lisseth Willingham [phone] but didn't get an answer. CM will continue to follow and assist as needed with discharge planning / needs. CM received a call from [facility] that the patient was under their care. They plan to resume care with him upon discharge. DCPIA - Discharge Planning Initial Assessment Updated by [email or web address]: Romy Main on 08/27/19 6:31 pm * Is the patient Alert and Oriented? No * How many steps to enter\exit or inside your home? * PCP JASMIN JHA * Pharmacy [facility] * Preadmission Environment Home Alone * ADLs Independent * Other Equipment HOME/ PORTABLE 02, NEBULIZER * List name and contact numbers for known caregivers / representatives who currently or will assist patient after discharge: BRETT WILLINGHAM - NEPHEW - [phone] SANDRO WILLINGHAM - SON - [phone] * Verbal permission to speak to the caregivers and representatives has been obtained from the patient. N/A * Community resources currently utilized Home Health * Please name any agencies selected above. [facility] * Additional services required to return to the preadmission environment? No * Can the patient safely return to the preadmission environment? Yes * Has this patient been hospitalized within the prior 30 days at any hospital? No Coverage Notice Reviewer: [id number] - Romy Main Notice Issued Date-Time: 08/27/2019 18:24 Notice Type: Patient Choice Letter Notice Delivered To: Family Member Relationship to Patient: Nephew Baggage Agent Supervisor Name: Brett Willingham Delivery Method: HAND - Hand Delivered Lisa Days: Prior Verbal Notification: Recipient Understood Notice: Yes Recipient Signature: Yes Med Rec Note Co-signed by Attending: Coverage Notice Comment: Resume Chaitanya Last DP export: 08/27/19 5:36 p Patient Name: PAOLO WILLINGHAM Page [id number] at 1843 All edits/amendments must be made on the electronic document DICTATION DATE: 08/27/191842 FUNDRAISING COORDINATOR: DOUG 08/27/191842 RPT#: [id number] DC DATE: STATUS: ADM IN [facility] [address] [place] [address] END OF REPORT
--- NOTE | 2019-08-27 19:00 | NUR ---
REPORT RECEIVED, PT AGITATED, FOLLOWS COMMANDS, CONFUSED TO TIME AND SITUATION. REORIENTED NEEDED. ASSESSMENT COMPLETE, SEE FLOWSHEET. PIV IN LEFT HAND, SEE IV FLOWSHEET. WILL CONTINUE TO MONITOR.
--- NOTE | 2019-08-27 21:00 | NUR ---
PT AGITATED, BIPAP IN PLACE AT THIS TIME.
--- NOTE | 2019-08-27 23:00 | NUR ---
PT RESTLESS, PULLING AT LINES AND BIPAP. REPOSITIONED FOR COMFORT. FULL BED BATH GIVEN.
[2019-08-28] VITALS (24 sets, daily range): BP systolic 122–179; BP diastolic 45–101
--- NOTE | 2019-08-28 01:00 | NUR ---
PT RESTLESS, BIPAP IN PLACE. WILL CONTINUE TO MONITOR.
--- NOTE | 2019-08-28 03:00 | NUR ---
PT RESTLESS, CONTINUOUSLY PULLING OFF MONITORING EQUIPMENT.
[2019-08-28 03:36] LABS: BASOPHILS 0 % (0-2); EOSINOPHILS 0 % (0-7); HEMATOCRIT 39.9 % (42.0-54.0); HEMOGLOBIN 13.4 g/dL (13.5-17.5); IMMATURE GRANULOCYTES 0.3 % (0-5); MCH 31.8 pg (26.0-34.0); MCHC 33.6 g/dL (31.0-37.0); MEAN PLATELET VOLUME 10.4 fL (7.4-10.4); MONOCYTES 4.4 % (2-11); NEUTROPHILS 89.3 % (40-80); PLATELET COUNT 92 10x3/uL (130-400); RBC 4.22 10x6/uL (4.20-6.10); RDW 14.2 % (11.5-14.5); WBC 11.5 10x3/uL (4.8-10.8)
[2019-08-28 03:38] LABS: MCV 94.5 fL (80.0-100.0)
[2019-08-28 03:50] LABS: ALBUMIN 2.6 g/dL (3.4-5.0); ANION GAP 9.5 mmol/L (8-16); BILIRUBIN - TOTAL 1.08 mg/dL (0.2-1.3); CALCIUM 8.3 mg/dL (8.5-10.1); CARBON DIOXIDE 32.5 mmol/L (21.0-32.0); CREATININE - SERUM 1.8 mg/dL (0.6-1.3); PROTEIN - SERUM 6.1 g/dL (6.4-8.2); VANCOMYCIN - RANDOM 13.8 ug/mL (10.0-20.0)
[2019-08-28 03:53] LABS: PLATELET ESTIMATE DECREASED
--- NOTE | 2019-08-28 05:00 | NUR ---
PT PULLED OUT PIV, NEW PIV SITED IN RIGHT FOREARM.
--- NOTE | 2019-08-28 07:00 | NUR ---
REPORT RECEIVED FROM ARIS KO. PT THEN TRANSFERRED TO ROOM 2303. PT HAS IV TO RIGHT FOREARM WITH 1/2NS AT 100ML/HR. PT HAS EDEMA IN ALL EXTREMITIES. PT HAS BEEN ON BIPAP. RT IN TO TRY PT ON HIGH FLOW O2. ON 7L CURRENTLY. PT HAS BRUISING TO CHEST FROM COMPRESSIONS WHEN PT WAS CODED IN EMS. PT HAS EXCORIATION TO GROIN. VSS. WILL CONTINUE TO MONITOR. CALL LIGHT IN REACH.
--- NOTE | 2019-08-28 09:17 | NUR ---
Nutrition follow-up: Pt extubated 08/26; remains NPO at this time Labs reviewed Wt: 238# Will need nutrition support started today unless oral diet able to begin RDN following.
--- NOTE | 2019-08-28 10:00 | NUR ---
DR TONEY STATED NO SWALLOW EVAL, THAT PT IS NOT ALERT ENOUGH TO DO THAT. ASKED RT TO PUT PT BACK ON BIPAP. WILL CONTINUE TO MONITOR.
--- NOTE | 2019-08-28 13:29 | NUR ---
PT RESTING QUIETLY WITH BIPAP ON. VSS. WILL CONTINUE TO MONITOR.
--- NOTE | 2019-08-28 14:27 | NUR ---
SON AT BEDSIDE. UPDATED. ABG TAKEN BY IRIS WHITE. WILL CONTINUE TO MONITOR.
--- NOTE | 2019-08-28 19:00 | NUR ---
ASSESSMENT COMPLETED. DENIES ANY NEEDS. BIPAP ON AT 40%. CALL LIGHT IN REACH
--- NOTE | 2019-08-28 21:00 | NUR ---
REQUESTING FOOD. EDUCATED ON NEEDING SALES REVIEW CLERK EVAL FIRST. VERBALIZED UNDERSTANDING BUT CONT TO ASK 3 MORE TIMES.
--- NOTE | 2019-08-28 23:00 | NUR ---
RE-ASSESSMENT COMPLETED. DENIES ANY NEEDS. NO CHANGES SINCE LAST ASSESSMENT
[2019-08-29] VITALS (23 sets, daily range): BP systolic 124–181; BP diastolic 45–128
--- NOTE | 2019-08-29 01:00 | NUR ---
PATIENT PLACED ON NC HF AT 9L, TOOK OFF BIPAP. PATIENT WOULD DROP IN O2 SAT BUT WOULD COME BACK UP. GIVEN LEMON SWAB, PROVIDED ORAL CARE. CHG BATH WITH COMPLETE LINEN CHANGE PROVIDED. PATIENT CONFUSED TO TIME
--- NOTE | 2019-08-29 03:00 | NUR ---
RE-ASSESSMENT COMPLETED. NO CHANGES SINCE LAST ASSESSMENT. REPOSITIONED.
--- NOTE | 2019-08-29 05:00 | NUR ---
DENIES COMPLAINTS, EASILY WAKES. CALL LIGHT IN REACH
[2019-08-29 08:11] LABS: BASOPHILS 0 % (0-2); EOSINOPHILS 0 % (0-7); HEMATOCRIT 39.4 % (42.0-54.0); HEMOGLOBIN 13.2 g/dL (13.5-17.5); IMMATURE GRANULOCYTES 0.2 % (0-5); LYMPHOCYTES 7.3 % (15-50); MCH 31.7 pg (26.0-34.0); MCHC 33.5 g/dL (31.0-37.0); MCV 94.5 fL (80.0-100.0); MEAN PLATELET VOLUME 11.9 fL (7.4-10.4); MONOCYTES 4.1 % (2-11); NEUTROPHILS 88.4 % (40-80); PLATELET COUNT 97 10x3/uL (130-400); RBC 4.17 10x6/uL (4.20-6.10); WBC 9.3 10x3/uL (4.8-10.8)
[2019-08-29 08:22] LABS: ANION GAP 9.6 mmol/L (8-16); BILIRUBIN - TOTAL 1.13 mg/dL (0.2-1.3); CALCIUM 7.9 mg/dL (8.5-10.1); CARBON DIOXIDE 26.8 mmol/L (21.0-32.0); CREATININE - SERUM 1.2 mg/dL (0.6-1.3); MAGNESIUM - SERUM 2.9 mg/dL (1.8-2.4); PHOSPHOROUS 4.2 mg/dL (2.5-4.9); POTASSIUM - SERUM 4.4 mmol/L (3.5-5.1); PROTEIN - SERUM 5.6 g/dL (6.4-8.2); VANCOMYCIN - RANDOM 13.6 ug/mL (10.0-20.0)
[2019-08-29 08:23] LABS: ALBUMIN 1.9 g/dL (3.4-5.0); PLATELET ESTIMATE DECREASED
--- NOTE | 2019-08-29 15:28 | NUR ---
0700 REPORT RECIEVED AND CARE ASSUMED OF PATIENT.. PT IS WITH 40% BIPAP O2.. HE IS VERT REPONSIVE TO VERBAL STIMULI BUT IS CONFUSED TO TIME.. 0800 FAMILY IN TO SEE PT .. UPDATE IS GIVEN.. PT IS CONVERSING WITH HIM.. 0900 MEDS HUNG PER E AUG 1029 PT SAT DROPPING.... RT AT BEDSIDE.. ABGs DRAWN.. O2 INCREASED BY THEM AT THIS TIME TO 100% AND ORDERS FOR CTA RECIEVED.. 1130 PT IS AWAKE AND WIHTOUT DISTRESS AT THIS TIME.. 1230 PT IS REQUESTING LUNCH TRAY EXPLAINED THAT SWALLOW EVAL HAS BEENVISITOR 1430 NO CHANGE IN PT STATUS... [address] HERNANDEZ FOR CTA CHEST DUE TO PREVIOUS SOB EPISODE.. 1300 WIHTOUT
--- NOTE | 2019-08-29 18:22 | NUR ---
1600 PT PLACED ON HIGH FLOW NASAL CANNULA AT 11 LITERS BY RT 1615 FAMILY IN TO SEE PT... PT CONVERSING WITH THEM .. 1700 O2 SAT 85% O2 INCREASED TO 13 LITERS PER NASAL CANNULA.. HYDALAZINE 0.5 IV GIVEN FOR BP 1745 HEAD START DIRECTOR HERE FOR PT .. CONTINUES 13 L HF NC... FAMILY UPDATED AND GONE.. PT TRANSPORTED TO CT SCAN VIA BED.. [address] SCAN VIA BED.. PT MENTATION IS NOT SHARP SEEMING.. AND SAT IS 84% PLACED BACK ON BIPAP AT 100% BY RT...BP 153/85
--- NOTE | 2019-08-29 19:15 | NUR ---
PT IS RESTING IN BED WITH EYES OPEN. BIPAP IS ON AT 100%. O2 SATURATION IS ONLY AT 90-92%. HE IS A&OX4. OTHER VITAL SIGNS ARE STABLE. HAD ASSISTANCE TO PULL HIM UP IN BED AND REPOSITIONED HIM TO HIS RIGHT SIDE SLIGHLTY. HE TOLERATED WELL. WILL PERFORM MY FULL ASESSMENT AND DOUCMENT. BED IS LOW,SIDE RAILSX2,CALL LIGHT WITHIN REACH.
--- NOTE | 2019-08-29 20:18 | NUR ---
CALLED AND ASKED FOR AN UPDATE. INFORMED HIM OF THE CTA RESULTS AND PT VS. T.O TO CHANGE IPAP SETTING FROM 14 TO 18 AND THE EPAP SETTING FROM 7 TO 10 ON BIPAP MACHINE. HE VOICED TO ALSO KEEP THE PT NPO BECAUSE HE IS GOING TO HAVE A BRONCOSCOPY IN THE MORNING. T.O READ BACK CORRECT.
--- NOTE | 2019-08-29 20:24 | NUR ---
CHANGED BIPAP SETTINGS PER T.O. PT IS AWAKE AND WATCHING TV. VSS. I ALSO PERFOMRED ORAL CARE AT THIS TIME BC OXYGEN SATURATION IS 95%. PT OXYGEN SATURATION STAY AT 90% WHILE CELANING AND I APPLIED BIPAP MASK BACK ON. NO OTHER NEEDS VOICED OR CONCERNS VOICED. BED IS LOW,SIDE [id number],CALL LIGHT WIHTIN REACH. WILL CONINTUE TO MONITOR
--- NOTE | 2019-08-29 21:18 | NUR ---
PROVIDED ORAL CARE AGAIN PER REQUEST. VSS. NO OTHER NEEDS VOICED. HE SAID"THANK YOU THAT IS BETTER". BED IS LOW,SIDE RAILSX2,CALL LIGHT WITHIN REACH. WILL CONTINUE TO MONITOR
--- NOTE | 2019-08-29 21:45 | NUR ---
I TALKED WITH THE PT AND VERBALIZED THAT WOULD LIKE TO DO A BRONCOSCOPY IN THE MORINING BECAUSE PT TOLD ME "I AM GOING TO GO HOME TOMORROW". WHEN I ASKED WHY HE WANTS TO GO HOME TOMMORROW HE VOICES"THERE IS NOTHING MORE YALL CAN DO FOR ME HERE". PT IS A&OX4 AT THIS TIME. VSS. I TOLD HIM THAT THE BRONSCOSCOPY COULD HELP. HE VOICED "NO I JUST WANT TO GO HOME AND BE AT [facility] THERE, IF I GO THEN I WANT TO GO THERE". I TRIED TO ASSESS IF THE PT WAS GIVING UP, HE VOICED "NO, I JUST WANT TO ENJOY WHAT TIME I HAVE LEFT AT HOME". I VOICED I COULD I UNDERSTAND THAT. THE PT IS CALM SEEMS ASURRED IN HIS DECISION. I VERBALIZED IF HE IS OK WITH STAYING TONIGHT AND RESTING. HE VERBALIZED "YES, THAT IS FINE, BUT I WOULD LIKE TO GO HOME IN THE MORNING". I VOICED THAT I WOULD LET THE DOCTOR KNOW IN THE MORINIGN OF HIS REQUEST. HE VOICED"THANK YOU HUN". BED IS LOW,SIDE RAILSX2,CALL LIGHT WITHIN REACH. WILL CONTINUE TO MONITOR
--- NOTE | 2019-08-29 23:27 | NUR ---
RETURNED CALL TO PT CO-RAFTSMAN, ANGIE REGARDING REQUEST TO SPEAK WITH CHARGE NURSE. ANGIE WAS UNABLE TO PROVIDE PT PASSWORD OR GET AHOLD OF FAMILY. EXPLAINED HOSPITAL POLICY REGARDING PT PRIVACY/HIPPA, HE VERBALIZED UNDERSTANDING.
--- NOTE | 2019-08-29 23:50 | NUR ---
pt is resting in bed with eyes closed bipap on. VSS. BED IS LOW,SIDE RIALSX2,CALL LIGHT WITHIN REACH. WILL CONTINUE TO MONITOR
[2019-08-30] VITALS (24 sets, daily range): BP systolic 80–187; BP diastolic 33–114
--- NOTE | 2019-08-30 01:30 | NUR ---
PT IS RESTING IN BED WITH EYES CLOSED. BIPAP IS ON. VSS. BED IS LOW,SIDE RAILSX2,CALL LIGHT WITHIN REACH. WILL CONITNUE TO MONITOR
--- NOTE | 2019-08-30 03:00 | NUR ---
pt is resting in bed with eyes closed. bipap is on. VSS. will perform caio checks per order and will perfomr re-assesment and document bed is low,side railsx2,call light within reach,.
--- NOTE | 2019-08-30 04:47 | NUR ---
pt is resting in bed with eyes closed. bipap is on. vss. no needs voiced. bed is low,side raislx2,call light within reach. will continue to monitor
--- NOTE | 2019-08-30 05:09 | NUR ---
administering scheduled medications. pt is awake with bipap on. when asked if in any pain pt voices"nope". VSS. when re-listening to the lungs they are slighlty diminished in all the right lobes. left lobes still have expiratory wheezes. also noted a heart murmur when listening to heart sounds. pt is in NSR. bed is low,side railsx2,call lig within reach. will continue to monitor
--- NOTE | 2019-08-30 05:25 | NUR ---
pt asked if he could have a break from the "mask". attempted to take bipap mask off and put nc high flow back on at 7L. MONITORED PT AND AFTER A COUPLE MINUTES HIS OXYGEN SATURATION WOULD ONLY STAY AT 88% ON 7L HIGH FLOW NC. COMMUNICATED THIS INFOMATION WITH THE PT AND VERABLIZED THE IMPORTANCE OF KEEPING HIS OXYGEN SATURATION UP. HE VERABALIZED UNDERSTANDING. APPLIED BIPAP BACK ON. OXYGEN SATURATION THEN CAME UP TO 96%. BIPAP IS STILL AT 100%. PT VERBALIZED BEFORE PUTTING MASK BACK ON THAT HE "WANTS TO GET AHOLD OF MY NIECE SHEA WILLINGHMA SO SHE CAN COME PICK ME UP". WHEN I ASKED WHY HE NEEDED TO BE PICKED UP PT VOICED"BECAUSE I WANT TO STILL GO HOME THIS MORNING". WILL STILL NOTIFY DR OF PT DECISION. VSS NOW. BED IS LOW,SIDE RIALSX2,CALL LIGHT WITHIN REACH. WILL CONINTUE TO MONITOR
--- NOTE | 2019-08-30 06:27 | NUR ---
PT IS RESTING IN BED. BIPAP ON. VSS. ASKED PT IF HE IS HURTING AT ALL HE VOICES"NO". NO NEEDS VOICED. PROVIDED ORAL CARE AT THIS TIME. BED IS LOW,SIDE RAILSX2,CALL LIGTH WITHIN REACH.WILL CONTINUE TO MONITOR
[2019-08-30 08:29] LABS: HEMATOCRIT 40.4 % (42.0-54.0); HEMOGLOBIN 13.5 g/dL (13.5-17.5); MCH 31.8 pg (26.0-34.0); MCHC 33.4 g/dL (31.0-37.0); MCV 95.1 fL (80.0-100.0); MEAN PLATELET VOLUME 11.8 fL (7.4-10.4); PLATELET COUNT 101 10x3/uL (130-400); RBC 4.25 10x6/uL (4.20-6.10); RDW 13.8 % (11.5-14.5); WBC 10.3 10x3/uL (4.8-10.8)
[2019-08-30 08:58] LABS: LYMPHOCYTES 2 % (15-50); MONOCYTES 10 % (2-11); NEUTROPHILS 88 % (40-80)
[2019-08-30 08:59] LABS: PLATELET ESTIMATE DECREASED
[2019-08-30 09:01] LABS: ALBUMIN 2.5 g/dL (3.4-5.0); ANION GAP 13.7 mmol/L (8-16); BILIRUBIN - TOTAL 1.27 mg/dL (0.2-1.3); CARBON DIOXIDE 28.8 mmol/L (21.0-32.0); CREATININE - SERUM 1.2 mg/dL (0.6-1.3); MAGNESIUM - SERUM 2.9 mg/dL (1.8-2.4); PHOSPHOROUS 2.9 mg/dL (2.5-4.9); POTASSIUM - SERUM 4.5 mmol/L (3.5-5.1); PROTEIN - SERUM 5.4 g/dL (6.4-8.2); VANCOMYCIN - RANDOM 15.5 ug/mL (10.0-20.0)
--- NOTE | 2019-08-30 14:26 | NUR ---
0700 REPORT RECIEVCED AND CARE ASSUMED OF THE PATIENT.. PT IS ALEXI BIPAP O2 ON HE IS AWAKE BUT RESTLESS AND CONFUSED ETIENNE TO TIME... 0800 DR TONEY HAS CALLED UNIT AND INFORMED THAT HE PLANS TO INTUBATED AND BRONCH PT THIS AM 0900DR TONEY IN TO SEE PT..FAMILY CALLED PER REQUEST TO UPDATE ON PROCEDURE 30 FAMILY IN AT BEDSIDE.. DR TONEY SPEAKING WITH THEM, AND SHOWING THEM CT SCAN 929 PERMIT SIGNED FOR BRONCH BY SON 1000 PT INTUBATED WITH 8 FR ETT PLACED ON VENT BY RT AND BRONCH PREFORMED AT BEDSIDE...50MCG FENTANYLL AND 4 MG VERSED GIVEN IVPFOR SEDATION. 1030 BRONCH COMPLETE.. PROPAFOL HUNG PER VO DR TONEY FOR SEDATION SOFT WRIST RESTRAINTS ON AT THIS TIME.. 1200 FAMILY IN TO SEE PT.. UPDATE IS GVIEN AND THE BAG OF HOME MEDICATIONS THAT HVE BEEN IN THE ROOM GIVEN TO THEM TO TAKEHOME AT THIS TIME.. 1300 DR TONEY IN TO SEE PT AND CVL PLACEMENT DONE INTO THE RIGHT IJ 1320 PORT CXR DONE AND DR TONEY OK LINE FOR USE .. 1430 DIPRIVAN HAS BEEN TITRATED UP TO 50 MCG FROM 5 FOR PT SEDATION VSS
--- NOTE | 2019-08-30 15:28 | NUR ---
1530 ABG DRAWN BY RT
--- NOTE | 2019-08-30 17:47 | NUR ---
1600 FIO2 TO 50% ON VENT BY RT 1700 FAMILY IN TO SEE PT UPDATE IS GIVEN..
--- NOTE | 2019-08-30 19:02 | NUR ---
recived bedside shift report at bedside. pt is intubated/sedated today. VSS at this time. restraints observed with good cap refill and bilat hands have good color. will perform full assessment and document. bed is low,side railsx2,call light within reach. will conitnue to monitor
--- NOTE | 2019-08-30 22:02 | NUR ---
pt is resting in bed intubated/sedated. VSS. WILL TURN AT THIS TIME TO BACK AND PERFORM ORAL CARE. PT TOLERATED WELL. BED IS LOW,SIDE RAISLX2,CALL LIGHT WITHIN REACH. WILL CONINTUE TO MONITOR
--- NOTE | 2019-08-30 23:00 | NUR ---
when coming into pt room to do re-assessment i noticed his greer cathetor bag had very little urine in it. when assess line found that the cathetor tip was all the way out of the penis. inserted a new 18F greer cathetor while keeeping steril technique. pt tolerated well. VSS. secured to leg and dated new cathetor bag. i also propped pt feet off the bed with pillow to allow heals to be bridge while supporting the knees. i also removed right forarm iv at this time with cathetor intact. pt did not bleed but covered with a 2x2 and paper tape. will perform re-assessment and doucment. bed is low,side railsx2,call light within reach. will continue to monitor
[2019-08-31] VITALS (23 sets, daily range): BP systolic 69–144; BP diastolic 49–97
--- NOTE | 2019-08-31 00:52 | NUR ---
PT IS RESTING IN BED INTUBATED/SEDATED. VSS. BED IS LOW,SIDE RIALSX2,CALL [facility] WTIHIN REACH. WILL CONINTUE TO MONITOR
--- NOTE | 2019-08-31 01:57 | NUR ---
i have noticed that the last two times i have stimulated the pt by either oral care or when repositioning that the pt right upper side of body and chin twitches. vital signs remain stable and when left alone he quickly stops. i perfomred oral care at this time and repositioned to back. bed is low,side railsx2,call light within reach. will conitnue to monitor
--- NOTE | 2019-08-31 04:02 | NUR ---
ASSESS RETRAINTS AND PROVIDED RELIEF PER PROTOCOL. CAP REFILL IS LESS THAN 3 SECONDS BILAT HANDS. HANDS ARE WARM TO TOUCH. PUT BACK ON PER ORDER. VSS. PT IS STILL INTUATBED/SEDATED. PERFORMED ORAL CARE AND TURNED PT TO LEFT SIDE. FEET ARE STILL BRIDGED OFF BED WITH KNEES SUPPORTED. BED IS LOW,SIDE RAISLX3,CALL LIGHT WITHIN REACH.WILL CONITNUE TO MONITOR
--- NOTE | 2019-08-31 05:44 | NUR ---
PT IS RESTING IN BED RESTING. INTUBATED/SEDATED. VSS. PERFORMED ORAL CARE AND TURNED PT TO RIGHT SIDE. RESTRAINTS OBSERVED. BED IS LOW,SIDE RAILSX2,CALL LIGTH WITHIN REACH. WILL CONTINUE TO MONITOR
--- NOTE | 2019-08-31 07:15 | NUR ---
ASSESSMENT PER FLOWSHEET. PT INTUBATED ON 50 PERCENT FIO2. O2 SAT 100 PERCENT. SR UP X 2. CALL LIGHT WITHIN REACH.
--- NOTE | 2019-08-31 08:57 | NUR ---
Nutrition follow-up: Pt intubated 2/2 possible aspiration NPO OGT placed RDN will order Pulmocare to start @ 20 ml/hr with gradual increase to goal rate of 50 ml/hr. Flush with 100 ml H2O q 4 hours RDN following.
--- NOTE | 2019-08-31 13:41 | NUR ---
0900- patient turned for comfort. see adls. no acute distress. line capped and labeled. oral care provided. patient arourses. will continue to monitor
--- NOTE | 2019-08-31 13:43 | NUR ---
patient repositioned. oral care provided. no acute distress. patient awake. minimal sedation to keep patient comfortable. obeys commands such as open mouth to clean out. call light iwthin reach. lights dimmed for comfort. will continue to monitor
--- NOTE | 2019-08-31 19:00 | NUR ---
REPORT RECEVEID FROM THE OFF GOING RN. SEE ASSESSMENT IN THE PTS FLOW SHEET. PT SEDATED AND ON THE VENT. SEE VENT SETTINGS IN FLOW SHEET. RIGHT IJ CVL NOTED. SEE GTTS IN FLOW SHEET. OGT NOTED. PLACEMENT CHECKED VIA A&A WITH ABOUT 15ML OF RESIDUAL NOTED. FC NOTED WITH DARK YELLOW URINE. NSR WITH PAC NOTED. NO FAMILY AT THE PTS BEDSIDE. CALL LIGHT IN REACH. WILL CONT POC.
--- NOTE | 2019-08-31 20:00 | NUR ---
PT REPOSISTIONED. VSS. 30ML OF RESIDUAL NOTED. TUBE FEEDING INCRASED PER ORDERS. NOW AT 30ML OF PULMOCARE.
[2019-09-01] VITALS (25 sets, daily range): BP systolic 77–146; BP diastolic 40–100
[2019-09-01 05:46] LABS: ALBUMIN 1.9 g/dL (3.4-5.0); ALKALINE PHOSPHATASE 55 U/L (30-120); BILIRUBIN - TOTAL 0.65 mg/dL (0.2-1.3); CALCIUM 7.6 mg/dL (8.5-10.1); CARBON DIOXIDE 32.5 mmol/L (21.0-32.0); CHLORIDE - SERUM 105 mmol/L (98-107); MAGNESIUM - SERUM 2.7 mg/dL (1.8-2.4); PHOSPHOROUS 2.9 mg/dL (2.5-4.9); POTASSIUM - SERUM 4.3 mmol/L (3.5-5.1); PROTEIN - SERUM 4.6 g/dL (6.4-8.2); SODIUM 139 mmol/L (136-145); VANCOMYCIN - RANDOM 16.6 ug/mL (10.0-20.0); eGFR NON AFRICAN AMERICAN 76 mL/min (90-120)
[2019-09-01 05:49] LABS: ALT (SGPT) 19 U/L (10-68); CALC OSMOLALITY 290 mosm/kg (275-300); GLUCOSE 185 mg/dL (74-106); UREA NITROGEN 36 mg/dL (7-18)
[2019-09-01 07:27] LABS: BASOPHILS 0 % (0-2); EOSINOPHILS 0 % (0-7); HEMATOCRIT 36.9 % (42.0-54.0); HEMOGLOBIN 12.2 g/dL (13.5-17.5); IMMATURE GRANULOCYTES 0.8 % (0-5); LYMPHOCYTES 9.5 % (15-50); MCH 31.2 pg (26.0-34.0); MCHC 33.1 g/dL (31.0-37.0); MCV 94.4 fL (80.0-100.0); MEAN PLATELET VOLUME 11.5 fL (7.4-10.4); MONOCYTES 4.8 % (2-11); NEUTROPHILS 84.9 % (40-80); PLATELET COUNT 102 10x3/uL (130-400); RBC 3.91 10x6/uL (4.20-6.10); RDW 13.4 % (11.5-14.5)
[2019-09-01 07:41] LABS: WBC 6.7 10x3/uL (4.8-10.8)
--- NOTE | 2019-09-01 08:41 | NUR ---
0700 REPORT RECIEVED AND CARE ASSSUMED OF PATIENT.. SEE SHIFT ASSESMENT FLOWW SHEET FOR ASSESMENT FINDINGS.. 0800 DIPRIVAN RATE DECREASE TO 48 MCG, TUBE FEEDING RATE INCREASED TO 50CC/HR TO REACH GOAL RATE..
--- NOTE | 2019-09-01 10:12 | NUR ---
0900 WIHTOUT VISITORS.. 1000 SEDATION VACATION RATE TO 46, PT AWAKE OPENS EYES BECOMES RESTLESS PULLING AT RESTRAINTS.. RATE BACK TO 48 WITHOUT OTHEWER CHANGES..
--- NOTE | 2019-09-01 11:49 | NUR ---
1145 DR KUNZ IN TO SEE PT.. DIPRIVAN RATE DECREASED TO 40MCG FOR CPAP TRIAL.. VENT CHANGE PER DR KUNZ RT AT BEDSIDE...
[2019-09-01 12:09] LABS: AFB SPECIMEN PROCESSING Concentration (())
--- NOTE | 2019-09-01 15:46 | NUR ---
1200 SON IN TO SEE PT.. UPDATE GIVEN AND DR KUNZ SPOKE WITH HIM.. 1315 CPAP TRIAL IN PROGRESS. DIPRIVAN AT 40MCGDECREASED TO 20 1400 BACK ON VENT RESPIRATIONS ARE 34 SAT 91% 1500 HHR AND BP LOW REPOSITIONED AND ORAL CARE DONE TO STIMULATE PT BP 1545 VS WNL AT THIS TIME.. BP 97/61 WITH MAP 71 HR 70SRDIPRIVAN REMAINS AT 20 MCG AND PT APPEARS COMFORTABLE AT THIS TIME..
--- NOTE | 2019-09-01 17:44 | NUR ---
1630 PT IS WIDE AWAKE NOT FOLLOWING COMMANDS.. DIPRIVAN TO 40 MCG.. 1730 FAMILY MEMBER IN TO SEE PT AND UPDATE IS GIVEN..
--- NOTE | 2019-09-01 18:38 | NUR ---
1800 WITHOUT CHANGES IN PAT STAUS AT THIS TIME..
[2019-09-02] VITALS (24 sets, daily range): BP systolic 86–147; BP diastolic 49–85
--- NOTE | 2019-09-02 06:09 | NUR ---
1900 - REPORT RECEIEVED, PT SEDATED ON VENT, NO ACUTE DISTRESS NOTED. RT IJ CVL IN PLACE, SEE IV FLOWSHEET. ASSESSMENT COMPLETED, SEE FLOWSHEET. 2100 - PM MEDS TAKEN W/O DIFFICULTY. 2300 - REASSESSMENT COMPLETED, SEE FLOWSHEET. SEDATED ON VENT. 0100 - PT SEDATED, NO ACUTE DISTRESS NOTED. 0300 - REASSESSMENT COMPLETE, REPOSITIONED FOR COMFORT. 0500 - NO CHANGE IN PATIENT STATUS.
[2019-09-02 06:41] LABS: CALC OSMOLALITY 292 mosm/kg (275-300); CALCIUM 7.8 mg/dL (8.5-10.1); CARBON DIOXIDE 30.4 mmol/L (21.0-32.0); CHLORIDE - SERUM 106 mmol/L (98-107); GLUCOSE 183 mg/dL (74-106); POTASSIUM - SERUM 4.6 mmol/L (3.5-5.1); SODIUM 140 mmol/L (136-145); UREA NITROGEN 37 mg/dL (7-18); VANCOMYCIN - RANDOM 16.5 ug/mL (10.0-20.0); eGFR NON AFRICAN AMERICAN 76 mL/min (90-120)
--- NOTE | 2019-09-02 07:25 | NUR ---
REPORT RECIEVED, SHIFT ASSESSMENT COMPLETE, PT IS SEDATED ON VENT, ON 40% FIO2 WITH 97% O2 SAT, ALL PPP, VSS, WILL CON'T TO MONITOR
[2019-09-02 07:37] LABS: BASOPHILS 0 % (0-2); EOSINOPHILS 0 % (0-7); HEMATOCRIT 35.4 % (42.0-54.0); HEMOGLOBIN 11.6 g/dL (13.5-17.5); IMMATURE GRANULOCYTES 1.7 % (0-5); LYMPHOCYTES 4.3 % (15-50); MCH 30.8 pg (26.0-34.0); MCHC 32.8 g/dL (31.0-37.0); MCV 93.9 fL (80.0-100.0); MEAN PLATELET VOLUME 11.5 fL (7.4-10.4); MONOCYTES 11.2 % (2-11); NEUTROPHILS 82.8 % (40-80); PLATELET COUNT 111 10x3/uL (130-400); RBC 3.77 10x6/uL (4.20-6.10); RDW 13.5 % (11.5-14.5)
--- NOTE | 2019-09-02 09:00 | NUR ---
NO VISITORS AT THIS TIME, WILL CON'T TO MONITOR
--- NOTE | 2019-09-02 09:19 | NUR ---
Nutrition follow-up: Intubated, sedated with propofol @ 12.6 ml/hr Pulmocare @ 55 ml/hr CPAP trials 08/31 Wt: 263# Labs reviewed Pt tolerating TF at this time RDN following.
--- NOTE | 2019-09-02 09:22 | NUR ---
Nutrition follow-up: Intubated, sedated with propofol @ 20.7 ml/hr Labs reviewed Pulmocare @ 50 ml/hr CPAP trials 08/31 Wt: 263# Pt tolerating TF RDN following.
[2019-09-02 10:09] LABS: ACID FAST SMEAR Negative (()); FUNGUS STAIN Final report (())
--- NOTE | 2019-09-02 11:20 | NUR ---
REASSESSMENT COMPLETE, NO CHANGES NOTED, PT RESTING AT THIS TIME,
--- NOTE | 2019-09-02 13:00 | NUR ---
REPOSITIONED FOR COMFORT, ORAL CARE PROVIDED,
--- NOTE | 2019-09-02 15:20 | NUR ---
REASSESSMENT COMPLETE, NO CHANGES NOTED, PT REPOSITIONED FOR COMFORT, ORAL CARE PROVIDED,
--- NOTE | 2019-09-02 17:00 | NUR ---
ORAL ENDOTRACH CARE ADM. REPOSITIONED FOR COMFORT
--- NOTE | 2019-09-02 19:00 | NUR ---
REPORT RECIEVED FROM THE OFF GOING RN. SEE ASSESMENT IN THE PTS FLOW SHEET. PT SEDATED AND ON THE VENT. PT DOES FOLLOW COMMANDS. NSR ON THE MONITOR WITH PAC'S NOTED. VSS AT THIS TIME. ORAL CARE PROVIDED. ORAL THRUSH NOTED. DR KUNZ NOTIFIED. NYSTATIN QID ORDERED. SEE AUG. WILL CONT POC.
--- NOTE | 2019-09-02 21:42 | NUR ---
PT REPOSITIONED. ORAL CARE PROVIDED. WILL CONT POC.
[2019-09-03] VITALS (24 sets, daily range): BP systolic 95–143; BP diastolic 53–84
--- NOTE | 2019-09-03 03:56 | NUR ---
FULL BEDBATH GIVEN TO THE PT. PT TOLERATED WELL.
[2019-09-03 05:58] LABS: BASOPHILS 0 % (0-2); EOSINOPHILS 0 % (0-7); HEMOGLOBIN 11.2 g/dL (13.5-17.5); IMMATURE GRANULOCYTES 4.5 % (0-5); LYMPHOCYTES 4.3 % (15-50); MCH 31.1 pg (26.0-34.0); MCHC 32.9 g/dL (31.0-37.0); MCV 94.4 fL (80.0-100.0); MEAN PLATELET VOLUME 10.9 fL (7.4-10.4); MONOCYTES 9.7 % (2-11); NEUTROPHILS 81.5 % (40-80); PLATELET COUNT 117 10x3/uL (130-400); RDW 13.8 % (11.5-14.5); WBC 7.5 10x3/uL (4.8-10.8)
[2019-09-03 06:40] LABS: ALBUMIN 1.7 g/dL (3.4-5.0); ALKALINE PHOSPHATASE 61 U/L (30-120); ALT (SGPT) 21 U/L (10-68); CALC OSMOLALITY 288 mosm/kg (275-300); CALCIUM 7.8 mg/dL (8.5-10.1); CARBON DIOXIDE 29.8 mmol/L (21.0-32.0); CHLORIDE - SERUM 106 mmol/L (98-107); GLUCOSE 176 mg/dL (74-106); POTASSIUM - SERUM 4.7 mmol/L (3.5-5.1); PROTEIN - SERUM 4.2 g/dL (6.4-8.2); SODIUM 139 mmol/L (136-145); UREA NITROGEN 33 mg/dL (7-18); eGFR NON AFRICAN AMERICAN 76 mL/min (90-120)
--- NOTE | 2019-09-03 07:51 | NUR ---
0700 BEDSIDE REPORT RECEIVED FROM YAKOV HURSTPRODUCTION OPERATIONS INSPECTOR COMPLETE IV OF 1/2 NS INFUSING AT 100ML/HOUR PROPOFOL INFUSING FOR SEDATION. AWAKENS WITH TACTILE STIMULATION NO INDICATIONS OF PAIN CALM
--- NOTE | 2019-09-03 08:00 | NUR ---
0750 STOPPED PROPOFOL FOR WEANING TRIAL STOPPED TUBE FEEDING FOR POSSIBLE EXTUBATION BILLY WHITE CHANGED VENT SETTING TO CPAP TRIAL PATIENT OPENS EYES TO VOICE FOLLOWS COMMANDS
--- NOTE | 2019-09-03 10:46 | NUR ---
0950 NOTIFIED RT OF INCREASING RESPIRATIONS AND THRASHING AROUND IN BED RT RETURND VENT TO AC PROPOFOL RESTARTED REPOSITIONED IN BED
--- NOTE | 2019-09-03 11:23 | NUR ---
1000 RESTARTED PULMOCARE TUBE FEEDING NO RESIDUAL NOTED
--- NOTE | 2019-09-03 15:01 | NUR ---
1200 RESTING QUIETLY NO INDICATION OF PAIN
--- NOTE | 2019-09-03 15:02 | NUR ---
1300 TURN TO RIGHT SIDE WITH ASSIST X 2
--- NOTE | 2019-09-03 15:03 | NUR ---
1300 FREQULENT PAUSES NOTED CAUSING THE HEART RATE TO DROP IN THE UPPER 40's
--- NOTE | 2019-09-03 15:23 | NUR ---
1500 NOTIFIED CORETTA JIMENEZ WITH CARDIOLOGY NEW ORDERS NOTED PLANS TO CATH IN AM CREATININE DOWN TO 1.0
[2019-09-03 15:32] LABS: BASOPHILS 0.1 % (0-2); EOSINOPHILS 0 % (0-7); HEMATOCRIT 35.4 % (42.0-54.0); HEMOGLOBIN 11.6 g/dL (13.5-17.5); IMMATURE GRANULOCYTES 4.1 % (0-5); LYMPHOCYTES 7.5 % (15-50); MCHC 32.8 g/dL (31.0-37.0); MCV 94.7 fL (80.0-100.0); MEAN PLATELET VOLUME 10.9 fL (7.4-10.4); MONOCYTES 4.7 % (2-11); NEUTROPHILS 83.6 % (40-80); PLATELET COUNT 133 10x3/uL (130-400); RBC 3.74 10x6/uL (4.20-6.10); RDW 13.9 % (11.5-14.5)
[2019-09-03 15:33] LABS: WBC 9.8 10x3/uL (4.8-10.8)
[2019-09-03 15:50] LABS: ALT (SGPT) 24 U/L (10-68); CALC OSMOLALITY 286 mosm/kg (275-300); CALCIUM 7.7 mg/dL (8.5-10.1); CARBON DIOXIDE 29.8 mmol/L (21.0-32.0); CHLORIDE - SERUM 104 mmol/L (98-107); CHOL - HDL RATIO 8.5 ratio (2.3-4.9); CHOLESTEROL, TOTAL 195 mg/dL (0-200); GLUCOSE 176 mg/dL (74-106); HDL CHOLESTEROL 23 mg/dL (32-96); LDL CHOLESTEROL 139 mg/dL (0-100); POTASSIUM - SERUM 4.7 mmol/L (3.5-5.1); SODIUM 138 mmol/L (136-145); TRIGLYCERIDE 166 mg/dL (30-200); UREA NITROGEN 31 mg/dL (7-18); eGFR NON AFRICAN AMERICAN 76 mL/min (90-120)
--- NOTE | 2019-09-03 19:00 | NUR ---
SHIFT ASSESSMENT COMPLETED. PT CARE ASSUMED, MONITORS ON AND WORKING, VITALS STABLE, SEE FLOW SHEET FOR FURTHER DETAILS. WILL CONTINUE TO OBSERVE.
--- NOTE | 2019-09-03 23:00 | NUR ---
PT TURNED AND REPOSITIONED FOR COMFORT. MONITORS ON AND WORKING, VITALS STABLE, ORAL CARE PROVIDED AT THIS TIME. SEE FLOW SHEET FOR FURTHER DETAILS. WILL CONTINUE TO OBSERVE.
[2019-09-04] VITALS (22 sets, daily range): BP systolic 115–158; BP diastolic 53–99
--- NOTE | 2019-09-04 01:00 | NUR ---
PT TURNED AND REPOSTIONED FOR COMFORT, MONITORS ON AND WORKING, CHG BED BATH AND LINEN CHANGE COMPLETED AT THIS TIME, WILL CONTINUE TO OBSERVE.
--- NOTE | 2019-09-04 03:00 | NUR ---
NO CHNAGES, SEE FLOW SHEET FOR FURTHER DETAILS. WILL CONTINUE TO OBSERVE.
[2019-09-04 05:37] LABS: BASOPHILS 0.1 % (0-2); EOSINOPHILS 0 % (0-7); HEMATOCRIT 34.4 % (42.0-54.0); HEMOGLOBIN 11.3 g/dL (13.5-17.5); IMMATURE GRANULOCYTES 4.6 % (0-5); LYMPHOCYTES 5.4 % (15-50); MCH 30.7 pg (26.0-34.0); MCHC 32.8 g/dL (31.0-37.0); MCV 93.5 fL (80.0-100.0); MEAN PLATELET VOLUME 10.9 fL (7.4-10.4); MONOCYTES 9.2 % (2-11); NEUTROPHILS 80.7 % (40-80); PLATELET COUNT 143 10x3/uL (130-400); RBC 3.68 10x6/uL (4.20-6.10); RDW 13.7 % (11.5-14.5); WBC 10.3 10x3/uL (4.8-10.8)
[2019-09-04 05:53] LABS: ALBUMIN 1.7 g/dL (3.4-5.0); ALKALINE PHOSPHATASE 66 U/L (30-120); ALT (SGPT) 21 U/L (10-68); BILIRUBIN - TOTAL 0.44 mg/dL (0.2-1.3); CALC OSMOLALITY 282 mosm/kg (275-300); CALCIUM 7.7 mg/dL (8.5-10.1); CARBON DIOXIDE 31.4 mmol/L (21.0-32.0); CHLORIDE - SERUM 105 mmol/L (98-107); CREATININE - SERUM 0.9 mg/dL (0.6-1.3); GLUCOSE 150 mg/dL (74-106); POTASSIUM - SERUM 4.7 mmol/L (3.5-5.1); PROTEIN - SERUM 4.4 g/dL (6.4-8.2); SODIUM 137 mmol/L (136-145); UREA NITROGEN 29 mg/dL (7-18); eGFR NON AFRICAN AMERICAN 86 mL/min (90-120)
--- NOTE | 2019-09-04 09:22 | NUR ---
PT REPOSITIONED. NEW PROPOFOL HUNG. VSS. WILL CONTINUE TO MONITOR.
--- NOTE | 2019-09-04 09:28 | NUR ---
Nutrition follow-up: Intubated, sedated with propofol @ 22.9 ml/hr Pulmocare infusing @ 50 ml/hr with 100 ml H2O flush q 4 hours Labs reviewed wt: 264# Continues to tolerate TF at goal' RDN following.
--- NOTE | 2019-09-04 10:54 | NUR ---
TUBE FEED TURNED OFF FOR BRONCH LATER TODAY. OBTAINED CONSENT FROM SON, SANDRO WILLINGHAM, VIA PHONE. ORAL CARE PROVIDED. WILL CONTINUE TO MONITOR.
--- NOTE | 2019-09-04 11:26 | CN ---
PATIENT NAME:PAOLO WILLINGHAM MEDICAL RECORD: [id number] : 39 LOCATION:[facility].2303 ADMIT DATE: 08/24/19 ACCOUNT: [id number] CONSULTING PHYSICIAN: BROOKLYNN GOLDEN MD REFERRING PHYSICIAN: SHILO HERNANDEZ MD DATE OF CONSULTATION: 08/25/2019 ADMITTING DIAGNOSES: 1. Status post cardiopulmonary arrest. 2. Coronary artery disease. 3. Myocardial infarction. 4. Abnormal ECG. 5. Hypertension. 6. Pulmonary edema. HISTORY OF PRESENT ILLNESS: Mr. Willingham was found down at home. His troponin is positive. He is intubated. He is, however, improving from a neurologic standpoint and he is following commands. His EKG has T-wave inversions throughout the anterolateral leads. His troponin is elevated but it is unknown if he has any chest pain. There are no family members present at this time; however, from working at the chart, family member has been present, but did not know anything about the events preceding his being found down. PHYSICAL EXAMINATION: CONSTITUTIONAL/GENERAL APPEARANCE: Well nourished, well developed, appears stated age. EYES: Lids and conjunctivae noninjected. No discharge. No pallor. ENT: Lips within normal limit. No cyanosis. No pallor. NECK: Carotid arteries, bilateral normal upstroke. No bruits. No thrills. No jugular venous pressure or distention. CERVICAL LYMPH NODES: Nontender. Nonenlarged. THYROID: Not enlarged. No nodules. CARDIOVASCULAR: Precordial exam, nondisplaced. No heaves or pericardial thrills. Rate and rhythm, regular. Heart sounds, normal S1, normal S2. No S3, no gallop, no rub. Systolic murmur, not heard. Diastolic murmur, not heard. RESPIRATORY: Respiratory effort, unlabored. Normal curvature. No thoracic deformity. No chest wall tenderness. Percussion, resonant. Auscultation, clear. No wheezes, no rales, no rhonchi. ABDOMEN: Soft, nondistended, nontender. No abdominal pain, no vomiting and normal appetite. MUSCULOSKELETAL: No joint tenderness, normal gait, normal tone. SKIN: Warm and dry. OVERALL IMPRESSION: Status post cardiac arrest with elevated troponin, most likely this is cardiac in etiology. We will get an echocardiogram today. If he does well neurologically, would proceed with coronary angiography in the near future. TRANSINT:[id number] Voice Confirmation ID: [id number] DOCUMENT ID: [id number] CONSULT REPORT [id number] PAOLO WILLINGHAM, BROOKLYNN ONTIVEROS at 1126 CC: [id number] DICTATION DATE: 08/25/19 1245 TRAVEL GUIDE: 08/25/192029 ADM IN [facility] [address] [place] [address]
--- NOTE | 2019-09-04 11:26 | EC ---
PATIENT:PAOLO WILLINGHAM DATE OF SERVICE: 08/24/19 SEX: M MEDICAL RECORD: [id number] DATE OF : 39 LOCATION:[facility] [place] D230 AGE OF PATIENT: 83 ADMISSION DATE: 08/24/19 REFERRING PHYSICIAN: INTERPRETING PHYSICIAN: BROOKLYNN GALLEGOS MD ECHOCARDIOGRAM REPORT ECHO CHARGES 4 ECHO COMPLETE Date: 08/25/19 CLINICAL DIAGNOSIS: BRADYCARDIA/EDEMA/SEPSIS/ RESP.FAILURE/CARDIAC ARREST ECHOCARDIOGRAPHIC MEASUREMENTS (adult normal given) AC root (d.<3.7cm) 4.4 cm LV Septum d (<1.2 cm> 1.7 cm Valve Excursion 1.0 cm LV Septum (systole) 2.1 cm Left Atria (s.<4.0cm> 3.6 cm LVPW d(<1.2cm) 1.7 cm RV (d.<2.3cm) 3.2 cm LVPW (sytole) 2.4 cm LV diastole(<5.6CM) 5.7 cm MV E-F(>70mm/sec) cm LV systole 3.9 cm LVOT Diameter 2.4 cm MV exc.(>10mm) cm Est.ejection fraction (50-75%) % DOPPLER: LVIT cm/sec A cm/sec E 182 cm/sec LA cm/sec RVSP 17.2 mmHg LVOT 149 cm/sec AOP1/2T m/s Asc. Ao 296 cm/sec RVOT 85.0 cm/sec RA cm/sec PA 100 cm/sec AV Gradient Peak 35.0 mmHg AV Mean 19.1 mmHg AV Area 2.2 cm MV Gradient Peak 19.0 mmHg MV Mean 6.7 mmHg MV Area cm COMMENTS: Director Of Oncology: 1 BEENA ANNOE Rubber Mixer: 1 Dr. Gallegos TAPE# PACS Pericardial Effusion N DATE OF SERVICE: 08/25/2019 FINDINGS: 1. Left ventricular chamber size is mildly dilated. Left ventricular systolic function is preserved at 55%. 2. Left atrium is within normal limits. Right atrium and right ventricular chamber sizes are mildly dilated. 3. Valvular structures: Aortic valve demonstrates mild calcific aortic stenosis, valve area calculates to 2.2 cm-squared with a gradient 35 mm across the valve. The remaining valvular structures have normal structure and motion. ECHOCARDIOGRAM REPORT [id number] PAOLO WILLINGHAM 4. Doppler interrogation reveals only trace tricuspid regurgitation, no other valvular insufficiency or stenosis. Pulmonary systolic pressure estimated at 17 mmHg. 5. No evidence of pericardial effusion or left ventricular thrombus. TRANSINT:[id number] Voice Confirmation ID: [id number] DOCUMENT ID: [id number] BROOKLYNN GALLEGOS MD at 1126 CC: [id number] DICTATION DATE: 08/26/19 1224 ENVIRONMENTAL QUALITY ANALYST: 08/26/19 1334 ADM IN [place] [id number] [place] [id number]
--- NOTE | 2019-09-04 11:30 | NUR ---
BRONCH DONE BEDSIDE WITH DR KUNZ AND RTAMISH.
--- NOTE | 2019-09-04 12:32 | NUR ---
TUBE FEEDINGS TURNED BACK ON.
--- NOTE | 2019-09-04 15:00 | NUR ---
REASSESSMENT DONE. VSS. WILL CONTINUE TO MONITOR.
--- NOTE | 2019-09-04 17:30 | NUR ---
PT REPOSITIONED AND SUCTIONED. WILL CONTINUE TO MONITOR.
--- NOTE | 2019-09-04 19:00 | NUR ---
REC'D REPORT. ASSESSMENT COMPLETE. PLACEMENT ON OGT CHECK, RESIDUAL 20ML. REPOSITIONED.
--- NOTE | 2019-09-04 21:00 | NUR ---
REPOSITIONED. ORAL CARE PROVIDED.
--- NOTE | 2019-09-04 23:00 | NUR ---
RE-ASSESSMENT COMPLETED. NO CHANGES SINCE LAST ASSESSMENT
[2019-09-05] VITALS (24 sets, daily range): BP systolic 111–149; BP diastolic 57–99
--- NOTE | 2019-09-05 01:00 | NUR ---
HEART RATE ELEVATED TO 140'S BUT EKG ON MONITOR NOT CORRELATING. EKG DONE AND FILED. PATIENT QUICKLY RETURNED TO BRADYCARDIA.
--- NOTE | 2019-09-05 03:00 | NUR ---
RE-ASSESSMENT COMPLETED. REPOSITIONED
--- NOTE | 2019-09-05 05:00 | NUR ---
PATIENT STILL BRADYCARDIA. NO CHANGES
[2019-09-05 06:23] LABS: BASOPHILS 0.1 % (0-2); EOSINOPHILS 0 % (0-7); HEMATOCRIT 33.8 % (42.0-54.0); HEMOGLOBIN 11.2 g/dL (13.5-17.5); IMMATURE GRANULOCYTES 3.7 % (0-5); LYMPHOCYTES 5.6 % (15-50); MCHC 33.1 g/dL (31.0-37.0); MCV 93.6 fL (80.0-100.0); MEAN PLATELET VOLUME 10.7 fL (7.4-10.4); MONOCYTES 5.9 % (2-11); NEUTROPHILS 84.7 % (40-80); PLATELET COUNT 161 10x3/uL (130-400); RBC 3.61 10x6/uL (4.20-6.10); RDW 13.6 % (11.5-14.5); WBC 10.3 10x3/uL (4.8-10.8)
[2019-09-05 06:40] LABS: CALC OSMOLALITY 281 mosm/kg (275-300); CALCIUM 7.9 mg/dL (8.5-10.1); CARBON DIOXIDE 29.3 mmol/L (21.0-32.0); CHLORIDE - SERUM 104 mmol/L (98-107); CREATININE - SERUM 0.7 mg/dL (0.6-1.3); GLUCOSE 149 mg/dL (74-106); MAGNESIUM - SERUM 2.3 mg/dL (1.8-2.4); PHOSPHOROUS 3.4 mg/dL (2.5-4.9); POTASSIUM - SERUM 4.8 mmol/L (3.5-5.1); SODIUM 137 mmol/L (136-145); UREA NITROGEN 27 mg/dL (7-18); eGFR NON AFRICAN AMERICAN > 90 mL/min (90-120)
--- NOTE | 2019-09-05 08:17 | NUR ---
PT LYING IN BED ON VENT AT THIS TIME. MOVES TO DISCOMFORT, DOES NOT FOLLOW COMMANDS. OGT RESIDUAL NOTED 45ML. VSS. NO ACUTE DISTRESS NOTED. WILL CONTINUE PLAN OF CARE.
--- NOTE | 2019-09-05 10:00 | NUR ---
NOTED PT TO HAVE BRONCHOSCPY BY DR KUNZ. CONSENTS OBTAINED BY PTS SON. UPDATES PROVIDED. NO ACUTE DISTRESS NOTED. WILL CONTINUE PLAN OF CARE.
--- NOTE | 2019-09-05 12:04 | NUR ---
UP IN BED ON VENT AT THIS TIME. VSS. NO ACUTE DISTRESS NOTED. PT TURNED Q2H. ORAL CARE PROVIDED Q2H. WILL CONTINUE PLAN OF CARE.
--- NOTE | 2019-09-05 14:35 | NUR ---
RT IJ CVL DRESSING SATURATED FROM PT ORAL SECRETIONS. DRESSING CHANGED AT THIS TIME PER HOSPITAL PROTOCOL. VSS. NO ACUTE DISTRESS NOTED. WILL CONTINUE PLAN OF CARE.
--- NOTE | 2019-09-05 15:35 | NUR ---
CHG BATH PROVIDED AT THIS TIME. TOTAL LINEN CHANGE PROVIDED. VSS. NO ACUTE DISTRESS NOTED. WILL CONTINUE PLAN OF CARE.
--- NOTE | 2019-09-05 17:17 | NUR ---
NO ACUTE DISTRESS NOTED. VSS. PT TURNED Q2H. ORAL CARE PROVIDED Q2H. WILL CONTINUE PLAN OF CARE.
--- NOTE | 2019-09-05 19:20 | NUR ---
REPORT REC'D AND CARE ASSUMED REC'D PT RESTING ON VENT VIA 8.0 ETT TAPED AT 27 CM LIPLINE, AROUSES TO DEEP STIMULI BUT DOES NOT FOLLOW COMMANDS, OGT TAPED SECURELY TO ETT, PLACEMENT VERIFIED VIA SMALL AIR BOLUS AUSCULTATED OVER EPIGASTRIM, PULMOCARE @ 50CC/HR WITH 100CC Q4HR FLUSH INFUSING, RIJCVL DRSG CDI WITH 1/2NS @ 100CC/HR AND DIPRIVAN @ 45MCG/KG/MIN OR 34.3CC/HR, SEE FLOWSHEET FOR VENT SETTINGS, GENERALIZED EDEMA, BILAT ARMS WITH BRUISING AND SCABS, MAHAN PATENT DRAINING YELLOW URINE, BILAT LOWER EXT'S DRY AND SCALING, SCDS INTACT, WEAK PPP, BILAT SOFT WRIST RESTRAINTS INTACT, BED IN LOW POSITION, VISIBLE TO NURSES STATION.
--- NOTE | 2019-09-05 23:00 | NUR ---
REASSESSMENT COMPLETED, ORAL CARE PROVIDED, ROUTINE MEDS GIVEN ORDERED, WILL CONT TO MONITOR FOR CHANGES.
[2019-09-06] VITALS (24 sets, daily range): BP systolic 90–155; BP diastolic 5–558
--- NOTE | 2019-09-06 00:01 | NUR ---
UNABLE TO PERFORM SUICIDE SCREEN DUE TO PT BEING SEDATED ON VENT
--- NOTE | 2019-09-06 02:00 | NUR ---
NO CHANGES IN STATUS AT THIS TIME
[2019-09-06 05:08] LABS: HEMATOCRIT 34.3 % (42.0-54.0); HEMOGLOBIN 11.5 g/dL (13.5-17.5); MCH 31.3 pg (26.0-34.0); MCHC 33.5 g/dL (31.0-37.0); MCV 93.2 fL (80.0-100.0); MEAN PLATELET VOLUME 11.2 fL (7.4-10.4); PLATELET COUNT 185 10x3/uL (130-400); RBC 3.68 10x6/uL (4.20-6.10); RDW 13.7 % (11.5-14.5); WBC 21.2 10x3/uL (4.8-10.8)
[2019-09-06 05:19] LABS: ALBUMIN 1.7 g/dL (3.4-5.0); ALKALINE PHOSPHATASE 80 U/L (30-120); ALT (SGPT) 20 U/L (10-68); BILIRUBIN - TOTAL 0.37 mg/dL (0.2-1.3); CALC OSMOLALITY 273 mosm/kg (275-300); CALCIUM 7.7 mg/dL (8.5-10.1); CARBON DIOXIDE 29.4 mmol/L (21.0-32.0); CHLORIDE - SERUM 101 mmol/L (98-107); CREATININE - SERUM 0.7 mg/dL (0.6-1.3); GLUCOSE 178 mg/dL (74-106); POTASSIUM - SERUM 4.9 mmol/L (3.5-5.1); PROTEIN - SERUM 4.4 g/dL (6.4-8.2); SODIUM 132 mmol/L (136-145); UREA NITROGEN 27 mg/dL (7-18); eGFR NON AFRICAN AMERICAN > 90 mL/min (90-120)
[2019-09-06 05:30] LABS: LYMPHOCYTES 3 % (15-50); MONOCYTES 2 % (2-11); NEUTROPHILS 84 % (40-80)
[2019-09-06 05:31] LABS: PLATELET ESTIMATE NORMAL; TOXIC GRANULATION 1+
--- NOTE | 2019-09-06 07:09 | NUR ---
LYING IN BED ON VENT AT THIS TIME. VSS. NO ACUTE DISTRESS NOTED. PT TURNED Q2H. ORAL CARE PROVIDED Q2H. WILL CONTINUE PLAN OF CARE.
--- NOTE | 2019-09-06 09:06 | NUR ---
LYING IN BED ON VENT AT THIS TIME. PT OPENS EYES, NOT CURRENTLY FOLLOWING COMMANDS. VSS. NO ACUTE DISTRESS NOTED. PT TURNED Q2H. ORAL CARE PROVIDED Q2H. WILL CONTINUE PLAN OF CARE.
[2019-09-06 09:22] LABS: CHOL - HDL RATIO 6.6 ratio (2.3-4.9); LDL-HDL RATIO 5.1 ratio (1.5-3.5)
--- NOTE | 2019-09-06 11:06 | NUR ---
OGT RESIDUALS NOTED AT 5ML.
--- NOTE | 2019-09-06 12:25 | NUR ---
LYING IN BED ON VENT AT THIS TIME. VSS. NO ACUTE DISTRESS NOTED. PT TURNED Q2H, ORAL CARE PROVIDED Q2H. WILL CONTINUE PLAN OF CARE.
[2019-09-06 13:08] LABS: FUNGUS CULTURE RESULT 1 Candida krusei (())
--- NOTE | 2019-09-06 14:11 | NUR ---
CONSENTS RECIEVED VIA TELEPHONE CONSENT BY PTS SON, SANDRO WILLINGHAM, FOR HEART CATH. QUESTIONS ANSWERED, UPDATES PROVIDED. PTS SON DENIES FURTHER QUESTIONS, HOWEVER REQUESTS TO BE CALLED IN THE MORNING TO BE NOTIFIED ON WHEN PROCEDURE WILL OCCUR. WILL PLACE STICKY NOTE TO CONSENT AND WILL NOTIFY NEXT SHIFT/RECIECING NURSE OF THIS SO PTS FAMILY CAN BE MADE AWARE. VSS. NO ACUTE DISTRESS NOTED. WILL CONTINUE PLAN OF CARE.
[2019-09-06 16:07] LABS: AEROBE ID Final report (()); RESULT 1 Enterobacter cloacae (())
--- NOTE | 2019-09-06 16:19 | NUR ---
NO ACUTE DISTRESS NOTED. NO CHANGE. VSS. PT TURNED Q2H. ORAL CARE PROVIDED Q2H. WILL CONTINUE PLAN OF CARE.
--- NOTE | 2019-09-06 18:27 | NUR ---
NO ACUTE DISTRESS NOTED. NO CHANGE. VSS. TURNED AND ORAL CARE PROVIDED Q2H. WILL CONTINUE PLAN OF CARE.
--- NOTE | 2019-09-06 19:20 | NUR ---
SHIFT ASSESSMENT COMPLETED SEE FLOWSHEET, BEDSIDE SHIFT REPORT COMPLETED AT THIS TIME. VSS CPOC
--- NOTE | 2019-09-06 21:15 | NUR ---
DIPROVAN TUBING CHANGED PER POLICY. VSS CPOC
--- NOTE | 2019-09-06 23:30 | NUR ---
REASSESSMENT COMPLETED SEE FLOWSHEET
--- NOTE | 2019-09-06 23:50 | NUR ---
TUBE FEED HELD PER ORDER, OGT FLUSHED AND CLAMPED AT THIS TIME
[2019-09-07] VITALS (23 sets, daily range): BP systolic 105–149; BP diastolic 6–95
--- NOTE | 2019-09-07 03:15 | NUR ---
REASSESSMENT COMPLETED SEE FLOWSHEET
[2019-09-07 06:44] LABS: ALBUMIN 1.6 g/dL (3.4-5.0); ALKALINE PHOSPHATASE 98 U/L (30-120); ALT (SGPT) 20 U/L (10-68); BILIRUBIN - TOTAL 0.32 mg/dL (0.2-1.3); CALC OSMOLALITY 267 mosm/kg (275-300); CALCIUM 7.7 mg/dL (8.5-10.1); CARBON DIOXIDE 26.4 mmol/L (21.0-32.0); CHLORIDE - SERUM 98 mmol/L (98-107); CREATININE - SERUM 0.7 mg/dL (0.6-1.3); GLUCOSE 161 mg/dL (74-106); PROTEIN - SERUM 4.4 g/dL (6.4-8.2); SODIUM 129 mmol/L (136-145); UREA NITROGEN 28 mg/dL (7-18); eGFR NON AFRICAN AMERICAN > 90 mL/min (90-120)
--- NOTE | 2019-09-07 07:15 | NUR ---
REPORT RECEIVED. ASSESSMETN COMPLETE PER FLOW SHEET. VSS. PT RESTING COMFORTABLY WILL CONTINUE TO MONITOR
[2019-09-07 08:35] LABS: HEMATOCRIT 35.3 % (42.0-54.0); LYMPHOCYTES 3.4 % (15-50); MCH 31.1 pg (26.0-34.0); MCV 91.5 fL (80.0-100.0); MEAN PLATELET VOLUME 11.2 fL (7.4-10.4); NEUTROPHILS 91.5 % (40-80); PLATELET COUNT 194 10x3/uL (130-400); RBC 3.86 10x6/uL (4.20-6.10); RDW 14.2 % (11.5-14.5)
[2019-09-07 08:37] LABS: WBC 13.6 10x3/uL (4.8-10.8)
--- NOTE | 2019-09-07 09:12 | NUR ---
Nutrition follow-up: Pt NPO for heart cath today Pt was tolerating TF of Pulmocare @ 50 ml/hr Labs reviewed Wt: 282# RDN following.
--- NOTE | 2019-09-07 09:20 | NUR ---
DR TONEY AT BEDSIDE GIVEN UPDATE. BRONCH ORDERED RESP NOTIFIED
--- NOTE | 2019-09-07 10:15 | NUR ---
PT TO ELECTRIC MULE OPERATOR
--- NOTE | 2019-09-07 10:50 | NUR ---
PT BACK FROM SANFORIZER. VSS. PT RESTING CFOMFORTABLY WILL CONTINUE TO MONITOR
--- NOTE | 2019-09-07 11:15 | NUR ---
REASSESSMENT COMPLETE PER FLOW SHEET. VSS. PT RESTING COMFORTABLY WILL CONTINUE TO MONITOR
--- NOTE | 2019-09-07 12:16 | OP ---
PATIENT NAME: PAOLO WILLINGHAM MEDICAL RECORD: [id number] :39 LOCATION:.[facility] D.2303 ADMISSION DATE:08/24/19 SURGEON: URIEL BOWEN MD DATE OF OPERATION: 09/07/2019 PROCEDURE: Left heart catheterization, selective coronary angiography, right femoral artery approach. CATHETERS: Initially uses 5-Pashto sheath; however, we have exchanged to a long 6-Pashto sheath due to a markedly tortuous aorta and iliac system. We had to use a 6 curve diagnostic on the left. FINDINGS: Left ventriculography not performed. Unable to engage secondary to a tortuous aorta. CORONARY ANATOMY: LEFT MAIN: Left main is free of disease. LAD: Free of disease in the diagonal system. CIRCUMFLEX: Free of disease in the marginal system. RIGHT CORONARY ARTERY: Dominant artery, gives rise to PDA, free of disease. IMPRESSION: Left ventricular function normal via echo. No evidence of obstructive coronary artery disease, suspect type 2 myocardial infarction secondary to demand ischemia from current underlying illness. TRANSINT:[id number] Voice Confirmation ID: [id number] DOCUMENT ID: [id number] URIEL BOWEN MD at 1216 CC: [id number] DICTATION DATE: 09/07/19 1108 NATURAL GAS PLANT TECHNICIAN: 09/07/19 1158 ADM IN [facility] [address] [place] [phone]
--- NOTE | 2019-09-07 15:15 | NUR ---
REASSESSMENT COMPLET EPER FLOW SHEET. VSS. PT RESTING COMFORTABLY WILL CONTINUE TO MONITOR
--- NOTE | 2019-09-07 17:15 | NUR ---
PT RESTING COMFORTABLY VSS NO NEW CHANGES WILL CONTINUE TO MONITOR
--- NOTE | 2019-09-07 19:15 | NUR ---
REPORT RECEIEVED. PT SEDATED ON VENT. ASSESSMENT COMPLETED, SEE FLOWSHEET. RT IJ CVL IN PLACE, SEE IV FLOWSHEET. NO ACUTE DISTRESS NOTED AT THIS TIME, WILL CONTINUE TO MONITOR.
--- NOTE | 2019-09-07 21:00 | NUR ---
PT RESTING IN BED, NO ACUTE DISTRESS NOTED.
--- NOTE | 2019-09-07 23:00 | NUR ---
REASSESSMENT COMPLETED, SEE FLOWSHEET.
[2019-09-08] VITALS (23 sets, daily range): BP systolic 95–175; BP diastolic 65–97
--- NOTE | 2019-09-08 01:00 | NUR ---
PT SEDATED, ON VENT. NO ACUTE DISTRESS NOTED.
--- NOTE | 2019-09-08 03:00 | NUR ---
REASSESSMENT COMPLETED, SEE FLOWSHEET.
--- NOTE | 2019-09-08 05:00 | NUR ---
PT SEDATED ON VENT, WILL CONTINUE TO MONITOR.
--- NOTE | 2019-09-08 07:15 | NUR ---
REPORT RECEIVED. ASSESSMENT COMPLET EPER FLOW SHEET. VSS. PT RESTING COMFORTBLY WILL CONTINUE TO MONITOR
--- NOTE | 2019-09-08 08:32 | NUR ---
Nutrition follow-up: Pt s/p heart cath; NPO this morning Labs reviewed RDN ordered Pulmocare to resume @ 50 ml/hr with 100 ml H2O flush q 4 hours RDN following.
[2019-09-08 09:57] LABS: CALCIUM 7.9 mg/dL (8.5-10.1); CHLORIDE - SERUM 97 mmol/L (98-107); GLUCOSE 118 mg/dL (74-106); LYMPHOCYTES 3.3 % (15-50); MCHC 34.4 g/dL (31.0-37.0); MEAN PLATELET VOLUME 10.8 fL (7.4-10.4); NEUTROPHILS 88.4 % (40-80); RDW 14.3 % (11.5-14.5); SODIUM 127 mmol/L (136-145)
[2019-09-08 10:03] LABS: ALKALINE PHOSPHATASE 78 U/L (30-120); ALT (SGPT) 21 U/L (10-68); BILIRUBIN - TOTAL 0.44 mg/dL (0.2-1.3)
[2019-09-08 10:05] LABS: HEMATOCRIT 37.8 % (42.0-54.0); MCV 90.2 fL (80.0-100.0); PLATELET COUNT 224 10x3/uL (130-400); RBC 4.19 10x6/uL (4.20-6.10); WBC 15.5 10x3/uL (4.8-10.8)
[2019-09-08 10:08] LABS: CALC OSMOLALITY 262 mosm/kg (275-300); CREATININE - SERUM 0.7 mg/dL (0.6-1.3); UREA NITROGEN 32 mg/dL (7-18)
[2019-09-08 10:09] LABS: ALBUMIN 1.9 g/dL (3.4-5.0); CARBON DIOXIDE 24.1 mmol/L (21.0-32.0); POTASSIUM - SERUM 4.4 mmol/L (3.5-5.1); eGFR NON AFRICAN AMERICAN > 90 mL/min (90-120)
--- NOTE | 2019-09-08 11:15 | NUR ---
REASSESSMENT COMPLETE PER FLOW SHEET. VSS. PT RESTING COMFORTABLY WILL CONTINUE TO MONITOR
[2019-09-08 13:41] LABS: BACTERIA FEW /hpf (NEGATIVE); BILIRUBIN NEGATIVE (NEGATIVE); EPITHELIAL CELLS RARE /hpf (0-5); GLUCOSE NEGATIVE (NEGATIVE); KETONE NEGATIVE (NEGATIVE); NITRITE NEGATIVE (NEGATIVE); RED CELLS - URINE 25-50 /hpf (0-5); SPECIFIC GRAVITY 1.015 (1.005-1.020); UROBILINOGEN NORMAL (NORMAL); WHITE CELLS - URINE RARE /hpf (NEGATIVE)
[2019-09-08 16:08] LABS: AFB SPECIMEN PROCESSING Concentration (())
--- NOTE | 2019-09-08 19:00 | NUR ---
REPORT RECEIVED, SHIFT ASSESSMENT COMPLETE PER FLOW SHEET, PT ON VENT WITH SEDATION PER RESP ORDERS, OGT TO TF PULMOCARE @50ML/HR WITH 100ML q4HR H2O FLUSH, OGT PLACEMENT VERIFIED BY AUSCULTATION, RT IJ CVL PATENT INFUSING MEDS PER ORDERS/MAR DRSG C/D/I, BUE SOFT WRIST RESTRAINTS REPOSITIONED, EXTREMITIES ELEVATED ON PILLOWS, MAHAN CATH TO GRAVITY WITH JODY URINE NOTED, SCROTUM AND PENIS SWELLING NOTED, ELEVATED WITH SLING, GENERALIZED EDEMA NOTED IN ALL EXTREMITIES, SCD'S ON BLE, ALL PULSES PALPABLE, VSS, REPOSITIONED PT FOR COMFORT, HOB ELEVATED, BED ALARM ON, SR UP x2, BED IN LOW POSITION, WILL CONTINUE TO MONITOR
--- NOTE | 2019-09-08 19:00 | NUR ---
REPORT RECEVIED FROM THE OFF GOING RN. SEE ASSESSMENT IN THE PTS FLOW SHEET. PT SEDATED AND ON THE VENTILATOR. ANASARCA NOTED. 8.0 ETT NOTED 20 AT THE LIP. SEE VENT SETTINGS IN FLOW SHEET. SINUS TACH 120. RIGHT IJ CVL NOTED. SEE IV FLOW SHEET FOR GTTS. MIDABD INCISION C/D/I. LEFT ABD ANN DRAIN NOTED. GREEN PURULENT DRAINAGE. COLOSTOMY BAG NOTED. STOMA RED AND MOIST. FC NOTED WITH JODY URINE. PT'S AT THE PTS BEDSIDE. PT SLURRING HIS WORDS AND SMELLS OF ETOH. PT CALM AND COOPERATIVE AT THIS TIME. PTS , LAUREN, APPEARS TO HAVE URINATED HIMSELF. I ASKED IF HE WOULD LIKE FOR ME TO CALL HIS SISTER AND HE PT STATED NO. PT VSS. CALL LIGHT IN REACH. WILL CONT POC.
--- NOTE | 2019-09-08 21:51 | NUR ---
SON SANDRO WILLINGHAM CALLED ICU, UPDATE GIVEN, FAMILY CALM AND DENIES FURTHER NEEDS AT THIS TIME
--- NOTE | 2019-09-08 23:00 | NUR ---
REASSESSMENT COMPLETED, NO ACUTE CHANGES NOTED FROM PRIOR ASSESSMENT, REPOSITIONED PT FOR COMFORT, VSS, ALL PULSES PALPABLE, DRSG'S C/D/I, NO ACUTE S/S OF DISTRESS NOTED, WILL CONTINUE TO MONITOR
[2019-09-09] VITALS (24 sets, daily range): BP systolic 92–136; BP diastolic 54–89
--- NOTE | 2019-09-09 03:00 | NUR ---
REASSESSMENT COMPLETE PER FLOW SHEET, NO ACUTE CHANGES FROM PRIOR ASSESSMENT, VSS, PULSES PALPABLE, REPOSITIONED FOR COMFORT, HOB AND EXTREMITIES ELEVATED, NO S/S OF ACUTE DISTRESS NOTED, WILL CONTINUE TO MONITOR
[2019-09-09 05:11] LABS: ALBUMIN 1.5 g/dL (3.4-5.0); ALKALINE PHOSPHATASE 77 U/L (30-120); ALT (SGPT) 17 U/L (10-68); BILIRUBIN - TOTAL 0.37 mg/dL (0.2-1.3); CALC OSMOLALITY 266 mosm/kg (275-300); CALCIUM 7.6 mg/dL (8.5-10.1); CARBON DIOXIDE 23.5 mmol/L (21.0-32.0); CHLORIDE - SERUM 98 mmol/L (98-107); CREATININE - SERUM 0.8 mg/dL (0.6-1.3); GLUCOSE 162 mg/dL (74-106); POTASSIUM - SERUM 4.7 mmol/L (3.5-5.1); PROTEIN - SERUM 4.3 g/dL (6.4-8.2); SODIUM 127 mmol/L (136-145); UREA NITROGEN 35 mg/dL (7-18); eGFR NON AFRICAN AMERICAN > 90 mL/min (90-120)
[2019-09-09 05:29] LABS: HEMATOCRIT 33.4 % (42.0-54.0); HEMOGLOBIN 11.6 g/dL (13.5-17.5); LYMPHOCYTES 2.5 % (15-50); MCH 31.6 pg (26.0-34.0); MCHC 34.7 g/dL (31.0-37.0); NEUTROPHILS 90.8 % (40-80); PLATELET COUNT 185 10x3/uL (130-400); RBC 3.67 10x6/uL (4.20-6.10); RDW 14.5 % (11.5-14.5); WBC 12.3 10x3/uL (4.8-10.8)
--- NOTE | 2019-09-09 07:15 | NUR ---
REPORT RECEIVED. ASSESSMENT COMPLETEPER FLOW SHEET. VSS PT RESTING COMFORTABLY WILL CONTINUE TO MONITOR
--- NOTE | 2019-09-09 09:30 | NUR ---
PS 05/21 TRIAL
--- NOTE | 2019-09-09 09:31 | NUR ---
Nutrition follow-up: Intubated, sedation off at this time Pulmocare infusing @ goal rate of 50 ml/hr; 25 ml H2O flush q hour Labs reviewed WT: 305# Weaning per pulmonary RDN following.
--- NOTE | 2019-09-09 09:59 | NUR ---
On 08/24/19 at 1728, an [place] Body Weight of 70kg was used for fluid calculation as documented by Dr. Guerin on the Code Sepsis Handoff.
--- NOTE | 2019-09-09 11:00 | NUR ---
REASSESSMENT COMPLETE PER FLOW SHEET. VSS. PT RESTING COMFORTABYL WILL CONTINUE TO MONITOR
[2019-09-09 12:08] LABS: ACID FAST SMEAR Negative (()); FUNGUS STAIN Final report (())
--- NOTE | 2019-09-09 13:00 | NUR ---
REPOSITIONED FOR COMFORT. NEEDS MET
--- NOTE | 2019-09-09 15:00 | NUR ---
REASSESSMENT COMPLETE PER FLOW SHEET. VSS. PT RESTING COMFORTABLY WILL CONTINUE TO MONITOR
[2019-09-10] VITALS (25 sets, daily range): BP systolic 77–134; BP diastolic 53–89
[2019-09-10 06:51] LABS: ALBUMIN 1.7 g/dL (3.4-5.0); ALKALINE PHOSPHATASE 87 U/L (30-120); ALT (SGPT) 17 U/L (10-68); BILIRUBIN - TOTAL 0.45 mg/dL (0.2-1.3); CALC OSMOLALITY 270 mosm/kg (275-300); CARBON DIOXIDE 26.6 mmol/L (21.0-32.0); CHLORIDE - SERUM 100 mmol/L (98-107); GLUCOSE 104 mg/dL (74-106); MAGNESIUM - SERUM 2.3 mg/dL (1.8-2.4); POTASSIUM - SERUM 4.6 mmol/L (3.5-5.1); PROTEIN - SERUM 4.4 g/dL (6.4-8.2); SODIUM 130 mmol/L (136-145); UREA NITROGEN 41 mg/dL (7-18); eGFR NON AFRICAN AMERICAN 76 mL/min (90-120)
--- NOTE | 2019-09-10 07:00 | NUR ---
PT REPORT RECEIVED FROM MANAGER OF DISTRIBUTION NURSE. NO ACUTE SIGNS OF DISTRESS NOTED. SHIFT ASSESSMENT COMPLETED. WILL CONTINUE TO MONITOR
[2019-09-10 07:41] LABS: BASOPHILS 0.1 % (0-2); EOSINOPHILS 0 % (0-7); HEMATOCRIT 32.9 % (42.0-54.0); HEMOGLOBIN 11.1 g/dL (13.5-17.5); IMMATURE GRANULOCYTES 1.5 % (0-5); LYMPHOCYTES 10.1 % (15-50); MCH 30.4 pg (26.0-34.0); MCHC 33.7 g/dL (31.0-37.0); MCV 90.1 fL (80.0-100.0); MEAN PLATELET VOLUME 10.7 fL (7.4-10.4); MONOCYTES 5.8 % (2-11); NEUTROPHILS 82.5 % (40-80); PLATELET COUNT 204 10x3/uL (130-400); RBC 3.65 10x6/uL (4.20-6.10); WBC 12.3 10x3/uL (4.8-10.8)
--- NOTE | 2019-09-10 08:50 | NUR ---
DR TONEY AT BEDSIDE. UPDATE GIVEN. NO NEW ORDERS AT THIS TIME. PT CURRENTLY ON CPAP TRIAL
--- NOTE | 2019-09-10 10:20 | NUR ---
RT IN ROOM TO EXTUBATE PT. PT EXTUBATED. TOLERATED WELL. POOR EFFORT COUGHING. INSTRUCTED TO COUGH AND TRY TO MOVE SECRETIONS. WILL CONTINUE TO MONITOR
--- NOTE | 2019-09-10 11:00 | NUR ---
DR HERNANDEZ AT BEDSIDE. UPDATE GIVEN. NO NEW ORDERS
--- NOTE | 2019-09-10 12:30 | NUR ---
KHLOE GREENE IN ROOM DOING SWALLOW EVAL. WILL CONTINUE TO MONITOR
--- NOTE | 2019-09-10 19:00 | NUR ---
REPORT REC'D, PT'S CARE ASSSUMED. ASSESSMENT COMPLETED. SEE FLOWSHEETS FOR ALL FINDINGS. PT AWAKE AND ALERT TO NAME,CONFUSED TO PLACE, TIME, AND SITUATION. REORIENTED WITHOUT RESULTS AT THIS TIME. NSR ON CM WITH HR AT 78, LUNG SOUNDS CRACKLES TO ULB WITH DIMINISHED TO LLB, UNLABORED. O2SAT 96% VIA 4L NC. PPP. CONT MANISH AND SCD. CALL LIGHT IN REACH. CONT TO MONITOR.
--- NOTE | 2019-09-10 21:00 | NUR ---
SCHEDULED MEDS GIVEN WITHOUT DIFFIC. PT MICHAEL WELL. VSS.
--- NOTE | 2019-09-10 23:00 | NUR ---
REASSESSMENT COMPLETED. SEE FLOWSHEETS FOR ALL FINDINGS. COMPLETED BED BATH DONE. SKIN CARE PROVIDED. SMALL BM NOTED. GOWN AND LINEN CHANGED. VSS. PT MICHAEL WELL. CPOC.
[2019-09-11] VITALS (11 sets, daily range): BP systolic 102–151; BP diastolic 55–80
--- NOTE | 2019-09-11 01:00 | NUR ---
PT RESTING QUIETLY WITHOUT DISTRESS. VSS.
--- NOTE | 2019-09-11 09:25 | NUR ---
Nutrition follow-up: Pt extubated 09/09 Per speech diet advanced to regular puree with thin liquids Labs reviewed RDN following.
--- NOTE | 2019-09-11 12:15 | NUR ---
DR HERNANDEZ IN ROOM. UPDATE GIVEN. WILL CONTINUE TO MONITOR
--- NOTE | 2019-09-11 12:46 | NUR ---
PT FED MEAL TRAY. TOOK A COUPLE OF BITES. TOLERATED WELL. NO CHOKING OR COUGHING. PT STATED HE DID NOT WANT ANYMORE.
--- NOTE | 2019-09-11 14:05 | NUR ---
D/C MAHAN PER DR HERNANDEZ. PT TOLERATED WELL. INSTRUCTED TO USE URINAL. PT CONFUSED. WILL CONTINUE TO MONITOR
--- NOTE | 2019-09-11 14:40 | NUR ---
ROOM ASSIGNMENT RECEIVED FROM ISAAC MORIN. PREPARING TO CALL REPORT.
--- NOTE | 2019-09-11 16:42 | NUR ---
REPORT CALLED TO RICKEY. PREPARING TO TRANSFER PT OVER TO MED SURG.
--- NOTE | 2019-09-11 17:30 | NUR ---
PT TAKEN OVER TO MED SURG. TOLERATED TRANSFER WELL.
--- NOTE | 2019-09-11 17:50 | NUR ---
PT RECEIVED FROM ICU TO ROOM 2227 VIA BED. AWAKE ALERT AND ORIENTED TO PERSON ONLY. PT SATURATED WITH URINE AT THIS TIME. PROVIDED BIBI CARE AND BED CHANGE. SKIN TEAR NOTED TO LEFT FOREARM. IJ CVL TO RIGHT NECK WITH NS @ KVO INFUSING VIA PUMP. SITE WITHOUT REDNESS OR EDEMA. BLANCHABLE REDNESS TO COCCYX NOTED. EDEMA NOTED TO PENIS AND SCROTAL AREAS. LEGS NOTED WITH FLAKY SKIN. BILATERAL LOWER EXTREMITIES ELEVATED AT THIS TIME. VIKA ALARM IN PLACE.
[2019-09-12] VITALS: BP 162/94
[2019-09-12 01:18] LABS: BASOPHILS 0.2 % (0-2); EOSINOPHILS 0.1 % (0-7); HEMOGLOBIN 11.8 g/dL (13.5-17.5); IMMATURE GRANULOCYTES 0.7 % (0-5); LYMPHOCYTES 10.4 % (15-50); MCH 31.2 pg (26.0-34.0); MCHC 33.7 g/dL (31.0-37.0); MCV 92.6 fL (80.0-100.0); MEAN PLATELET VOLUME 10.7 fL (7.4-10.4); MONOCYTES 6.5 % (2-11); NEUTROPHILS 82.1 % (40-80); PLATELET COUNT 169 10x3/uL (130-400); RBC 3.78 10x6/uL (4.20-6.10); RDW 14.4 % (11.5-14.5); WBC 12.4 10x3/uL (4.8-10.8)
[2019-09-12 01:34] LABS: ALBUMIN 2.1 g/dL (3.4-5.0); BILIRUBIN - TOTAL 1.15 mg/dL (0.2-1.3); CALCIUM 8.6 mg/dL (8.5-10.1); CARBON DIOXIDE 26.3 mmol/L (21.0-32.0); MAGNESIUM - SERUM 2.3 mg/dL (1.8-2.4); PHOSPHOROUS 3.8 mg/dL (2.5-4.9); POTASSIUM - SERUM 4.3 mmol/L (3.5-5.1); PROTEIN - SERUM 5.4 g/dL (6.4-8.2)
[2019-09-12 01:35] LABS: CREATININE - SERUM 1.6 mg/dL (0.6-1.3)
--- NOTE | 2019-09-12 01:56 | NUR ---
AT START OF AEROSOL TX FOUND TO HAVE SPO2<80% SO FIO2 INCREASED TO 100% WITHOUT SIGNIFICANT CHANGE IN SPO2 SO CHANGED TO HIGH-FLOW CANNULA DUE TO POOR SEAL WITH MASK, AFTER 10 MINS NO CHANGESO CHANGED TO NRB MASK. ABG'S DRAWN, SHOWED HIGH CO2 WITH ACIDOSIS SO PLACED BACK ON BIPAP AT 100%. FACE AND CHIN SHAVED FOR BETTER MASK FIT AND REPOSITIONED TO RIGHT SIDE FOR PERCUSSION AND DRAINAGE TO LEFT LUNG (PLUGGING OFF AND NO BREATH SOUNDS). NT SUCTIONED. GRADUALLY WEANED BACK TO 40% WITH SPO2 94%.
[2019-09-12 04:00] VITALS: BP 116/61
--- NOTE | 2019-09-12 04:46 | NUR ---
PATIENT IN BED WITH DECREASED O2 SPO2 84-89% WITH BI PAP OR HIGH FLOW. RT WORKING WITH PATIENT UNABLE TO MAINTAIN SPO2 ABOVE 90%. RAPID RESPONSE CALLED AT 0055. PATIENT WAS PLACED ON NONREBREATHER MASK. LABS WAS CBC, CMP, MAG, PHOS, CXR PORTABLE, AND ABG. PT KEEPT PULLING OFF NRB @ 1000%, CONFUSED. ABG'S, LABS AND CHEST X-RAY DONE PATIENT PLACED BACK ON BIPAP MASK PLACED CORRECTLY. PATIENT SHAVED TO HELP WITH MASK FIT. SUCTIONED BY RT AND REPOSITIONED. GLOCOSE OF 68 FROM LABS PATIENT GIVEN PUDDING AND SODA . DR. HERNANDEZ CALED AT 0144 AND INFOURMED NO NEW ORDERS GIVEN. PATIENT STABILIZED AND REMAINED IN ROOM. RESTING AT THIS TIME BIPAP IN PLACE
--- NOTE | 2019-09-12 08:07 | NUR ---
resting in bed, pt removing mask, cont to monitor o2 and sats, incont urine
[2019-09-12 08:24] VITALS: BP 139/52
[2019-09-12 12:54] VITALS: BP 123/84
[2019-09-12 16:47] VITALS: BP 135/76
[2019-09-12 20:30] VITALS: BP 139/86
--- NOTE | 2019-09-12 20:49 | NUR ---
AWAKE,WITH CONFUSION NOTED.BIPAP ON AT THIS TIME. NO COMPALAINTS VOICED. IV TO RIJ INTACT WIHTOUT REDNESS OR EDEMA NOTED.CL IN REACH.
[2019-09-13 05:08] VITALS: BP 142/80
--- NOTE | 2019-09-13 07:15 | NUR ---
RESTING IN BED COMFORTABLY WITH EYES CLOSED. RESPIRATIONS EVEN AND UNLABORED. ON BIPAP. PATIENT BEDFAST. RIGHT IJ, NS INFUSING @ KVO. SITE PATENT WITHOUT REDNESS OR SWELLING. BLE EDEMA, 3+ PITTING. NO S/S OF ACUTE DISTRESS NOTED. CALL LIGHT IN REACH. WILL CONTINUE TO MONITOR.
[2019-09-13 08:33] VITALS: BP 128/77
[2019-09-13 12:05] VITALS: BP 150/83
--- NOTE | 2019-09-13 18:27 | NUR ---
RESTING IN BED WITH BIPAP ON WATCHING TV. NO C/O PAIN. NO S/S OF ACUTE DISTRESS NOTED. DENIES ANY NEEDS AT THIS TIME. CALL LIGHT IN REACH. WILL CONTINUE TO MONITOR.
--- NOTE | 2019-09-13 18:32 | NUR ---
I have reviewed this patient and I concur with the Shift Assessment completed by the Licensed Practical Nurse today this shift.
[2019-09-13 21:00] VITALS: BP 145/74
--- NOTE | 2019-09-13 21:00 | NUR ---
RESTING QUEITLY WITH NO DISTESS NOTED. BIPAP ON AT THIS TIME. RESP UNLABORED. IV INFUSING TO RIJ WITHOUT REDNESS OR EDEMA NOTED. POSITIONED FOR COMFORT. CL IN REACH
[2019-09-14 04:38] VITALS: BP 132/76
[2019-09-14 08:16] VITALS: BP 141/57
[2019-09-14 09:42] LABS: BASOPHILS 0.2 % (0-2); EOSINOPHILS 0.2 % (0-7); HEMOGLOBIN 10.9 g/dL (13.5-17.5); IMMATURE GRANULOCYTES 0.4 % (0-5); MCH 30.6 pg (26.0-34.0); MCV 92.7 fL (80.0-100.0); MEAN PLATELET VOLUME 10.3 fL (7.4-10.4); MONOCYTES 7.5 % (2-11); NEUTROPHILS 80.7 % (40-80); PLATELET COUNT 153 10x3/uL (130-400); RBC 3.56 10x6/uL (4.20-6.10); RDW 14.5 % (11.5-14.5); WBC 8.4 10x3/uL (4.8-10.8)
[2019-09-14 10:07] LABS: ALBUMIN 2.2 g/dL (3.4-5.0); ANION GAP 13.3 mmol/L (8-16); BILIRUBIN - TOTAL 1.47 mg/dL (0.2-1.3); CALCIUM 8.5 mg/dL (8.5-10.1); CARBON DIOXIDE 26.6 mmol/L (21.0-32.0); CREATININE - SERUM 2.1 mg/dL (0.6-1.3); MAGNESIUM - SERUM 2.4 mg/dL (1.8-2.4); PHOSPHOROUS 3.8 mg/dL (2.5-4.9); POTASSIUM - SERUM 3.9 mmol/L (3.5-5.1); PROTEIN - SERUM 5.3 g/dL (6.4-8.2)
[2019-09-14 13:39] VITALS: BP 148/81
--- NOTE | 2019-09-14 13:51 | NUR ---
FEED PATIENT 50 % OF LUNCH. 7 L OF HIGH FLOW. PATIENT STAYED BETWEEN 88-93% ON THE PULSE OX. CL IN REACH. POSSE ALARM ON. PLACED BACK ON BIPAP. WCTM
--- NOTE | 2019-09-14 14:57 | NUR ---
Nutrition follow-up: Diet: puree with thin liquids Pt ate ~50% of lunch today per nurse; po intake has been poor speech following. Labs reviewed Wt: 292# RDN following.
--- NOTE | 2019-09-14 15:02 | NUR ---
OT NOTE: PT COMPLETED BED MOB WITH MAX A.PT COMPLETED SUPINE TO SIT WITH MAX A. PT COMPLETED UE AROM EXS. PT REQUIRED PROM TO LUE. PT NOTED NO PAIN IN LUE. [phone] THANK YOU,QUENTIN HENSLEY
[2019-09-14 16:20] VITALS: BP 94/57
--- NOTE | 2019-09-14 19:50 | NUR ---
LYING IN BED WITH EYES CLOSED. AWAKENS PER STIMULI. BIPAP IN USE. CONFUSED. RESISTS STAFF WITH ADLS. INCONT OF URINE. LT ARM IS WEEPING ON PAD. GROIN IS RED, SCROTUM IS SWOLLEN, REDNESS NOTED UNDER ABD FOLD AND ABD IS BRUISED. BUE ARE BRUISED. PENIS IS SWOLLEN ALSO. 2+ EDEMA NOTED TO BLE. GEN EDEMA NOTED TO BUE. NS @ 10 ML/HR INFUSING IN RT IJ. VIKA ALARM ON FOR PT SAFETY. PT HAS DIFF FOLLOWING COMMANDS AND SPEECH IS DIFF TO UNDERSTAND IF AT ALL. TELEMETRY SHOWS SR WITH RATE OF 85. SR ELEVATED X2. CL IN REACH.
[2019-09-14 20:00] VITALS: BP 157/83
[2019-09-15] VITALS (14 sets, daily range): BP systolic 96–140; BP diastolic 41–92
--- NOTE | 2019-09-15 01:00 | NUR ---
INCONT OF URINE. PERICARE PERFORMED AT THIS TIME. NYSTATIN POWDER TO GROIN BILAT. IRRITABLE AND RESISTING WITH TURNING. VIKA ALARM ON. CL IN REACH. BIPAP ON.
--- NOTE | 2019-09-15 03:56 | NUR ---
AM LABS DRAWN FROM RT IJ. PT PULLING ON BIPAP. CONFUSED. IRRITABLE. VIKA ALARM ON. CL IN REACH. NO DISTRESS.
[2019-09-15 04:44] LABS: BASOPHILS 0 % (0-2); EOSINOPHILS 1.4 % (0-7); HEMATOCRIT 29.7 % (42.0-54.0); HEMOGLOBIN 9.7 g/dL (13.5-17.5); IMMATURE GRANULOCYTES 0.3 % (0-5); LYMPHOCYTES 7.6 % (15-50); MCH 30.9 pg (26.0-34.0); MCHC 32.7 g/dL (31.0-37.0); MCV 94.6 fL (80.0-100.0); MONOCYTES 19.1 % (2-11); NEUTROPHILS 71.6 % (40-80); PLATELET COUNT 140 10x3/uL (130-400); RBC 3.14 10x6/uL (4.20-6.10); RDW 14.9 % (11.5-14.5)
[2019-09-15 04:54] LABS: WBC 5.8 10x3/uL (4.8-10.8)
[2019-09-15 05:07] LABS: ALBUMIN 1.9 g/dL (3.4-5.0); ANION GAP 10.5 mmol/L (8-16); BILIRUBIN - TOTAL 1.11 mg/dL (0.2-1.3); CALCIUM 8.3 mg/dL (8.5-10.1); CARBON DIOXIDE 28.2 mmol/L (21.0-32.0); MAGNESIUM - SERUM 2.5 mg/dL (1.8-2.4); POTASSIUM - SERUM 3.7 mmol/L (3.5-5.1); PROTEIN - SERUM 5.1 g/dL (6.4-8.2)
--- NOTE | 2019-09-15 09:23 | NUR ---
PT NON-VERBAL. CRACKLES TO ALL SUBRAMANIAN, CONTINUOUS BIPAP IN PLACE. TELEMETRY IN USE. ABDOMEN DISTENDED. BRUISING TO BUE. SCROTUM SWOLLEN. BLE SCALY. BED LOW, CALL LIGHT IN REACH. NO OTHER NEEDS AT THIS TIME.
--- NOTE | 2019-09-15 11:02 | NUR ---
OT NOTE: PT VERY LETHARGIC TODAY. UPON SECOND ATTEMPT, ASSIST PT TO EOB WITH MAX ASSIST X 2; MAX ASSIST WITH STATIC SITTING BALANCE PT IS CONTINUALLY LEANING BACKWARDS.. PT UNABLE TO MAINTAIN ANTERIOR PELVIC TILT. ROM EXS FOR UE/LES; BACK TO BED WITH MAX ASSIST X 2; BED MOB INCLUDING ROLLLING AND SCOOTING WITH MAX ASSIST X 2. PT VERY WEAK.. REMAINS CONFUSED AND DISORIENTED. VICKIE CHRISTINA, OTR/L [phone]
--- NOTE | 2019-09-15 15:00 | NUR ---
REASSESSMENT COMPLETE PER FLOW SHEET. VSS. PT RESTING COMFORTABLY WILL CONTINUE TO MONITOR
--- NOTE | 2019-09-15 19:00 | NUR ---
REPORT RECIEVED FROM THE OFF GOING RN. SEE ASSESSMENT IN THE PTS FLOW SHEET. VSS. PT SEDATED AND ON THE VENTILATOR. RIGHT IJ CVL NOTED. DRESSING C/D/I. SEE IV GTTS IN FLOW SHEET. CALL LIGHT IN REACH. WILL CONT CONT POC.
--- NOTE | 2019-09-15 21:00 | NUR ---
PT REPOSITIONED. VSS. WILL CONT POC.
--- NOTE | 2019-09-15 23:00 | NUR ---
REASSESSMENT COMPLETED. SEE FLOW SHEET. CALL LIGHT IN REACH. WILL CONT POC.
[2019-09-16] VITALS (24 sets, daily range): BP systolic 90–148; BP diastolic 47–87; Ht 182.9 cm; Wt 133.3 kg
--- NOTE | 2019-09-16 01:00 | NUR ---
PT VSS. CALL LIGHT IN REACH. WILL CONT POC.
--- NOTE | 2019-09-16 02:08 | NUR ---
PT REPOSITIONED. VSS. CALL LIGHT IN REACH. WILL CONT POC.
--- NOTE | 2019-09-16 03:00 | NUR ---
REASSESSMENT COMPLETED. SEE FLOW SHEET. WILL CONT POC.
--- NOTE | 2019-09-16 03:30 | NUR ---
FULL BED BATH AND LINEN CHANGED. PT TOLERATED WELL.
[2019-09-16 04:31] LABS: BASOPHILS 0.4 % (0-2); EOSINOPHILS 2.6 % (0-7); HEMATOCRIT 30.2 % (42.0-54.0); HEMOGLOBIN 9.8 g/dL (13.5-17.5); IMMATURE GRANULOCYTES 0.4 % (0-5); MCH 30.7 pg (26.0-34.0); MCHC 32.5 g/dL (31.0-37.0); MCV 94.7 fL (80.0-100.0); MEAN PLATELET VOLUME 10.2 fL (7.4-10.4); MONOCYTES 19.7 % (2-11); NEUTROPHILS 63.9 % (40-80); PLATELET COUNT 117 10x3/uL (130-400); RBC 3.19 10x6/uL (4.20-6.10); RDW 14.7 % (11.5-14.5); WBC 4.6 10x3/uL (4.8-10.8)
[2019-09-16 04:55] LABS: ALBUMIN 1.8 g/dL (3.4-5.0); ANION GAP 7.3 mmol/L (8-16); BILIRUBIN - TOTAL 1.14 mg/dL (0.2-1.3); CALCIUM 8.3 mg/dL (8.5-10.1); CARBON DIOXIDE 30.3 mmol/L (21.0-32.0); CREATININE - SERUM 1.5 mg/dL (0.6-1.3); MAGNESIUM - SERUM 2.2 mg/dL (1.8-2.4); POTASSIUM - SERUM 3.6 mmol/L (3.5-5.1)
[2019-09-16 04:57] LABS: PHOSPHOROUS 2.1 mg/dL (2.5-4.9)
--- NOTE | 2019-09-16 05:22 | NUR ---
LABS RECEIVED, PHOS REPLACED PER ORDERS. SEE MAR.
--- NOTE | 2019-09-16 08:58 | MORECARE ---
CASE MANAGEMENT DISCHARGE SUMMARY PATIENT: PAOLO WILLINGHAM UNIT: [id number] ADM DATE: 08/24/19 AGE: 83 : 37 SEX: M ROOM/BED: D.2304 AUTHOR: JON,DOC PHYSICIAN: REFERRING PHYSICIAN: SHILO HERNANDEZ MD DATE OF SERVICE: 09/16/19 Discharge Plan Patient Name: PAOLO WILLINGHAM Facility: [facility]:[place] : 1935 Planned Disposition: Home with Home Health Anticipated Discharge Date: Discharge Date: Expected LOS: Initial Reviewer: [email or web address] Initial Review Date: 08/24/2019 Generated: 09/16/19 9:57 am DCP- Discharge Planning Updated by [email or web address]: Romy Main on 08/27/19 5:[address] Patient Name: PAOLO WILLINGHAM Admission Status: ER Accout number: [id number] Admission Date: 08-24-2019 : 1935 Admission Diagnosis:SEPSIS, UNSPECIFIED ORGANISM Attending: SHILO HERNANDEZ Current LOS: 3 Anticipated DC Date: Planned Disposition: Home with Home Health Primary Insurance: [facility] [employer]UT[employer] Discharge Planning Comments: CM met with patient and nephjoão Brett Wright to complete initial dc planning assessment. CM educated patient on the CM role and verbal consent given by patient to complete assessment. CM verified patient's address, phone number, and emergency contact phone numbers. Patient lives at home independently. Patient live in small apartment on Brett's property. CM discussed availability of home health, rehab services, and medical equipment. Patient has home health with [facility] and plans to resume upon discharge. DEBBIE signed. Patient has home / portable 02and nebulizer with unknown provider. Brett is concerned that patient may require more care that HH can provide upon discharge. CM explained that we will re-evaluate closer to discharge. CM will continue to follow and will assist as needed with dc plans/needs. Refund Clerk: Romy Main DCP- Discharge Planning Updated by [id number]: Romy Main on 08/25/19 2:[address] CM attempted to complete discharge planning assessment. Patient is currently on vent and sedated. No family available. CM attempted to call lisseth Willingham [phone] but didn't get an answer. CM will continue to follow and assist as needed with discharge planning / needs. CM received a call from Chaitanya that the patient was under their care. They plan to resume care with him upon discharge. DCPIA - Discharge Planning Initial Assessment Updated by [email or web address]: Romy Main on 08/27/19 6:31 pm * Is the patient Alert and Oriented? No * How many steps to enter\exit or inside your home? * PCP JASMIN JHA * Pharmacy [facility] * Preadmission Environment Home Alone * ADLs Independent * Other Equipment HOME/ PORTABLE 02, NEBULIZER * List name and contact numbers for known caregivers / representatives who currently or will assist patient after discharge: BRETT WILLINGHAM - [place]PHE[place] - [phone] SANDRO WILLINGHAM - SON - [phone] * Verbal permission to speak to the caregivers and representatives has been obtained from the patient. N/A * Community resources currently utilized Home Health * Please name any agencies selected above. [facility] * Additional services required to return to the preadmission environment? No * Can the patient safely return to the preadmission environment? Yes * Has this patient been hospitalized within the prior 30 days at any hospital? No Coverage Notice Reviewer: [id number] - Romy Main Notice Issued Date-Time: 08/27/2019 18:24 Notice Type: Patient Choice Letter Notice Delivered To: Family Member Relationship to Patient: Nephew Pulmonologist Name: Brett Willingham Delivery Method: HAND - Hand Delivered Lisa Days: Prior Verbal Notification: Recipient Understood Notice: Yes Recipient Signature: Yes Med Rec Note Co-signed by Attending: Coverage Notice Comment: Resume Chaitanya Last DP export: 08/27/19 5:43 p Patient Name: PAOLO WILLINGHAM Page [id number] at 0858 All edits/amendments must be made on the electronic document DICTATION DATE: 09/16/19856 CREDIT RISK MANAGER: DOUG 09/16/19856 RPT#: [id number] DC DATE: STATUS: ADM IN [facility] [address] [place] [address] END OF REPORT
--- NOTE | 2019-09-16 11:17 | NUR ---
dr arteaga at bedside spoke [facility] family
--- NOTE | 2019-09-16 11:24 | NUR ---
PAGED DR ALEGRIA
--- NOTE | 2019-09-16 11:24 | NUR ---
DR ALEGRIA STATED HE WILL DO IT SOMETIME BEFORE MIDNIGHT
--- NOTE | 2019-09-16 12:57 | NUR ---
Nutrition Follow-up: Pt now intubated/sedated. Noted surgery consulted for trach & PEG. Orders for Pulmocare with goal rate of [address] Cohen. No new wt; last wt: 292# (09/10) Labs noted: Ca 8.3, PO4 2.1, Alb 1.8 Meds noted: D5 1/2NS @ 50, Nystatin, Neutra-Phos, Protonix, Fentanyl -TF per MD; noted pt's goal rate was 50 mL/hr when previously intubated. -Monitor wt; noted daily wts ordered. -RD following.
--- NOTE | 2019-09-16 18:15 | NUR ---
1500-DR ALEGRIA CAME BY AND STATED IT WOULD BE UNTIL SATURDAY THAT HE COULD DO THE TRACH AND PEG
--- NOTE | 2019-09-16 18:16 | NUR ---
0700-SEE ASSESMENT 0900-PADS UNDER L ARM CHANGED. WEEPING EDEMA
--- NOTE | 2019-09-16 19:00 | NUR ---
BEDSIDE REPORT AND SHIFT ASSESSMENT COMPLETE, SEE FLOWSHEET. PT AWAKE, FOLLOWS COMMANDS. BILAT WRIST RESTRAINTS IN PLACE. R IJ CVL PATENT, SEE IV FLOWSHEET. PULMOCARE VIA OGT. WILL MONITOR.
--- NOTE | 2019-09-16 21:00 | NUR ---
MEDS GIVEN PER AUG. PT AGITATED, MOVING AROUND IN BED. PRN VERSED ADMINISTERED PER AUG.
--- NOTE | 2019-09-16 21:10 | NUR ---
TUBE FEED RESIDUAL 10 ML. TUBE FEED RATE INCREASED TO 20 ML.
--- NOTE | 2019-09-16 23:00 | NUR ---
REASSESSMENT COMPLETE, SEE FLOWSHEET. VSS.
[2019-09-17] VITALS (24 sets, daily range): BP systolic 96–157; BP diastolic 52–87
--- NOTE | 2019-09-17 00:45 | NUR ---
CHG BATH, MAHAN CARE, LINEN CHANGE COMPLETE. REPOSITIONED FOR COMFORT.
--- NOTE | 2019-09-17 03:15 | NUR ---
REASSESSMENT COMPLETE, SEE FLOWSHEET. RESIDUAL 10 ML, TUBE FEED INCREASED TO 30 ML PER ORDER.
[2019-09-17 05:11] LABS: BASOPHILS 0.6 % (0-2); EOSINOPHILS 3.7 % (0-7); HEMATOCRIT 28.7 % (42.0-54.0); HEMOGLOBIN 9.2 g/dL (13.5-17.5); IMMATURE GRANULOCYTES 0.3 % (0-5); MCH 30.4 pg (26.0-34.0); MCHC 32.1 g/dL (31.0-37.0); MCV 94.7 fL (80.0-100.0); MEAN PLATELET VOLUME 9.7 fL (7.4-10.4); MONOCYTES 19.4 % (2-11); PLATELET COUNT 117 10x3/uL (130-400); RBC 3.03 10x6/uL (4.20-6.10); RDW 14.8 % (11.5-14.5); WBC 3.6 10x3/uL (4.8-10.8)
[2019-09-17 05:40] LABS: ALBUMIN 1.7 g/dL (3.4-5.0); ALKALINE PHOSPHATASE 74 U/L (30-120); ALT (SGPT) 14 U/L (10-68); CALC OSMOLALITY 288 mosm/kg (275-300); CALCIUM 7.9 mg/dL (8.5-10.1); CHLORIDE - SERUM 107 mmol/L (98-107); GLUCOSE 126 mg/dL (74-106); PHOSPHOROUS 1.7 mg/dL (2.5-4.9); POTASSIUM - SERUM 3.3 mmol/L (3.5-5.1); PROTEIN - SERUM 4.7 g/dL (6.4-8.2); SODIUM 140 mmol/L (136-145); UREA NITROGEN 36 mg/dL (7-18)
[2019-09-17 05:42] LABS: INR 1.15 (0.85-1.17); PROTIME 14.7 SECONDS (11.6-15.0)
[2019-09-17 05:51] LABS: eGFR NON AFRICAN AMERICAN 76 mL/min (90-120)
--- NOTE | 2019-09-17 12:20 | NUR ---
dr medrano at bedside
--- NOTE | 2019-09-17 19:00 | NUR ---
SHIFT ASSESSMENT COMPLETED. PT CARE ASSUMED. MONITORS ON AND WORKING, VITALS STABLE, VENT SETTINGS NOTED. MAHAN CATH STAT LOCKED IN PLACE. SEE FLOW SHEET FOR FURTHER DETAILS. WILL CONTINUE TO OBSERVE.
--- NOTE | 2019-09-17 21:00 | NUR ---
PT TURNED AND REPOSITIONED FOR COMFORT. MONITORS ON AND WORKING, VITALS STABLE. ORAL CARE PROVIDED AT THIS TIME WELL. NO SIGNS/SYMPTOMS OF PAIN OR DISCOMFORT NOTED, WILL CONTINUE TO OBSERVE.
--- NOTE | 2019-09-17 23:00 | NUR ---
PT TURNED AND REPOSITIONED FOR COMFORT. MONITORS ON AND WORKING, VITALS STABLE, SEE FLOW SHEET FOR FURTHER DETAILS, WILL CONTINUE TO OBSERVE.
[2019-09-18] VITALS (24 sets, daily range): BP systolic 93–133; BP diastolic 54–79
--- NOTE | 2019-09-18 01:00 | NUR ---
NO CHANGES, PT TURNED AND REPOSITIONED FOR COMFORT. NO SIGNS/SYMPTOMS OF PAIN OR DISCOMFORT NOTED AT THIS TIME, WILL CONTINUE TO OBSERVE.
--- NOTE | 2019-09-18 03:00 | NUR ---
PT TURNED AND REPOSITIONED FOR COMFORT. CHG BATH AND LINEN CHANGE COMPLETED AT THIS TIME, PT CLEANED FROM SMALL LOOSE BM WELL. SEE FLOW SHEET FOR FURTHER DETAILS. WILL CONTINUE TO OBSERVE.
--- NOTE | 2019-09-18 05:00 | NUR ---
PT TURNED AND REPOSITIONED FOR COMFORT. MONITORS ON AND WORKING, VITALS STABLE. WILL CONTINUE TO OBSERVE.
[2019-09-18 06:15] LABS: BASOPHILS 0.6 % (0-2); EOSINOPHILS 7.3 % (0-7); HEMATOCRIT 29.1 % (42.0-54.0); HEMOGLOBIN 9.4 g/dL (13.5-17.5); IMMATURE GRANULOCYTES 0.3 % (0-5); LYMPHOCYTES 23.5 % (15-50); MCH 30.9 pg (26.0-34.0); MCHC 32.3 g/dL (31.0-37.0); MCV 95.7 fL (80.0-100.0); MEAN PLATELET VOLUME 10.4 fL (7.4-10.4); MONOCYTES 15.1 % (2-11); NEUTROPHILS 53.2 % (40-80); PLATELET COUNT 124 10x3/uL (130-400); RBC 3.04 10x6/uL (4.20-6.10); WBC 3.4 10x3/uL (4.8-10.8)
[2019-09-18 06:31] LABS: ALBUMIN 1.5 g/dL (3.4-5.0); ALKALINE PHOSPHATASE 71 U/L (30-120); ALT (SGPT) 15 U/L (10-68); BILIRUBIN - TOTAL 1.07 mg/dL (0.2-1.3); CALC OSMOLALITY 283 mosm/kg (275-300); CALCIUM 7.8 mg/dL (8.5-10.1); CARBON DIOXIDE 29.3 mmol/L (21.0-32.0); CHLORIDE - SERUM 109 mmol/L (98-107); CREATININE - SERUM 0.8 mg/dL (0.6-1.3); GLUCOSE 94 mg/dL (74-106); POTASSIUM - SERUM 3.9 mmol/L (3.5-5.1); PROTEIN - SERUM 4.7 g/dL (6.4-8.2); SODIUM 140 mmol/L (136-145); eGFR NON AFRICAN AMERICAN > 90 mL/min (90-120)
[2019-09-18 06:36] LABS: PHOSPHOROUS 2.3 mg/dL (2.5-4.9); UREA NITROGEN 26 mg/dL (7-18)
--- NOTE | 2019-09-18 07:00 | NUR ---
PT RESTING IN BED, VSS AND WNL. BED ALARM ON. MORA WRIST RESTRAINTS NOTED. MAHAN CATHETER DRAINING DARK URINE FREELY VIA GRAVITY WITH NO LOOPS NOTED. ETT SECURED. TF ON HOLD FOR PROCEDURE, NO SIGNS OF DISTRESS NOTED AT THIS TIME, WILL CONT TO FOLLOW POC
--- NOTE | 2019-09-18 09:00 | NUR ---
PT RESTING IN BED, VSS AND WNL. NO SIGNS OF DISTRESS NOTED. BED ALARM ON. ETT SECURED. WILL CONT TO FOLLOW POC
--- NOTE | 2019-09-18 10:00 | NUR ---
PT LEFT FOR SURGERY
--- NOTE | 2019-09-18 12:30 | NUR ---
PT RETURNED FROM SURGERY, VSS AND WNL. TRACH SECURED IN PLACE. NO SIGNS OF DISTRESS NOTED. BED ALARM ON. WILL CONT TO FOLLOW POC
--- NOTE | 2019-09-18 12:44 | NUR ---
Nutrition Follow-up: TF on hold. Plans for trach and PEG today. Diet: NPO Wt: 253.5# (09/16); 238# (admit) Last BM: 09/09 per chart Labs noted: Ca 7.8, PO4 2.3, Alb 1.5 Meds noted: D5 1/2NS @ 50, Nystatin, Neutra-Phos, KCl, Protonix, Reglan, Pepcid -TF managed by MD; rec resume when medically feasible. -Monitor wt. -RD following.
--- NOTE | 2019-09-18 13:00 | NUR ---
HERE AND TOLD NURSE TO INCREASE IVF TO 75ML/HR SINCE NO TUBE FEEDING.
[2019-09-18 13:42] LABS: % SATURATION 22 % (15-55); IRON 25 ug/dl (35-150); TOTAL IRON BIND CAPACITY 110 ug/dl (260-445); UNSAT IRON BIND CAPACITY 85 ug/dl (150-375)
--- NOTE | 2019-09-18 14:53 | NUR ---
Nutrition Consult: Received consult for PEG TF recs. -When PEG ok to use, rec start Pulmocare @ 15 mL/hr and increase by 10 mL q 6 hrs to goal rate of 50 mL/hr + H2O flushes 100 mL q 4 hrs. Check residuals per protocol. -RD following. Thanks for the consult!
--- NOTE | 2019-09-18 15:00 | NUR ---
ADVISED NURSE TO REMOVE RIGHT IJ CVL. CENTRAL LINE REMOVED WITH CATHETER TIP INTACT. PRESSURE HELD. COVERED WITH DRY DRESSING. PT TOLERATED WELL. BED ALARM ON. NO SIGNS OF DISTRESS NOTED. TRACH SECURED, WILL CONT TO FOLLOW POC
--- NOTE | 2019-09-18 17:09 | NUR ---
PT RESTING IN BED, VSS AND WNL. TRACH SECURED. NO SIGNS OF DISTRESS NOTED. BED ALARM ON. WILL CONT TO FOLLOW POC
--- NOTE | 2019-09-18 19:05 | NUR ---
RECIVED REPORT AT BEDSIDE. PT IS OBSERVED TO BE RESTRAINED. BILAT WRIST. INTUBATED/SEDATED THROUGH TRACH. VSS. HE OPEN EYES WHEN SPOKEN TO. MAHAN CATHETOR OBSERVED BELOW BLADDER AND DRAINING. PT IS ON FRESH TRACH PROTOCOL. WILL PERFORM FULL ASSESSMENT AND DOCUMENT ON FLOWSHEET. BED IS LOW,SIDE RAISLX2,CALL LIGHT WITHIN REACH. WILL CONTINUE TO MONITOR
--- NOTE | 2019-09-18 19:58 | MORECARE ---
CASE MANAGEMENT DISCHARGE SUMMARY PATIENT: PAOLO WILLINGHAM UNIT: [id number] ADM DATE: 08/24/19 AGE: 83 : 37 SEX: M ROOM/BED: D.2304 AUTHOR: JON,DOC PHYSICIAN: REFERRING PHYSICIAN: SHILO HERNANDEZ MD DATE OF SERVICE: 09/18/19 Discharge Plan Patient Name: PAOLO WILLINGHAM [facility] [facility] 1935 Planned Disposition: Home with Home Health Anticipated Discharge Date: Discharge Date: Expected LOS: Initial Reviewer: [email or web address] Initial Review Date: 08/24/2019 Generated: 09/18/19 8:58 pm Comments DCP- Discharge Planning Updated by [email or web address]: Romy Main on 09/18/19 6:[address] CM called to speak to son Sandro Willingham to discuss LTACH options. Sandro stated that he would call back tomorrow he wanted to speak to his cousin Brett. CM will continue to follow and assist as needed with discharge planning / needs. DCP- Discharge Planning Updated by [id number]: Romy Main on 08/27/19 5:[address] Patient Name: PAOLO WILLINGHAM Admission Status: ER Accout number: [id number] Admission Date: 08-24-2019 : 1935 Admission Diagnosis:SEPSIS, UNSPECIFIED ORGANISM Attending: SHILO HERNANDEZ Current LOS: 3 Anticipated DC Date: Planned Disposition: Home with Home Health Primary Insurance: [facility] MEDIC[employer] SOLUTIONS Discharge Planning Comments: CM met with patient and nephew Brett Wright to complete initial dc planning assessment. CM educated patient on the CM role and verbal consent given by patient to complete assessment. CM verified patient's address, phone number, and emergency contact phone numbers. Patient lives at home independently. Patient live in small apartment on Brett's property. CM discussed availability of home health, rehab services, and medical equipment. Patient has home health with [facility] and plans to resume upon discharge. DEBBIE signed. Patient has home / portable 02and nebulizer with unknown provider. Brett is concerned that patient may require more care that HH can provide upon discharge. CM explained that we will re-evaluate closer to discharge. CM will continue to follow and will assist as needed with dc plans/needs. Associate Faculty: Romy Main DCP- Discharge Planning Updated by [id number]: Romy Main on 08/25/19 2:[address] CM attempted to complete discharge planning assessment. Patient is currently on vent and sedated. No family available. CM attempted to call lisseth Willingham [phone] but didn't get an answer. CM will continue to follow and assist as needed with discharge planning / needs. CM received a call from Chaitanya MAJANO that the patient was under their care. They plan to resume care with him upon discharge. DCPIA - Discharge Planning Initial Assessment Updated by [id number]: Romy Main on 08/27/19 6:31 pm * Is the patient Alert and Oriented? No * How many steps to enter\exit or inside your home? * PCP JASMIN JHA * Pharmacy [facility] * Preadmission Environment Home Alone * ADLs Independent * Other Equipment HOME/ PORTABLE 02, NEBULIZER * List name and contact numbers for known caregivers / representatives who currently or will assist patient after discharge: BRETT JONES - [phone] SANDRO WILLINGHAM - SON - [phone] * Verbal permission to speak to the caregivers and representatives has been obtained from the patient. N/A * Community resources currently utilized Home Health * Please name any agencies selected above. [facility] * Additional services required to return to the preadmission environment? No * Can the patient safely return to the preadmission environment? Yes * Has this patient been hospitalized within the prior 30 days at any hospital? No Coverage Notice Reviewer: [id number] - Romy Main Notice Issued Date-Time: 08/27/2019 18:24 Notice Type: Patient Choice Letter Notice Delivered To: Family Member Relationship to Patient: Nephew Rfid Technician Name: Brett Willingham Delivery Method: HAND - Hand Delivered Lisa Days: Prior Verbal Notification: Recipient Understood Notice: Yes Recipient Signature: Yes Med Rec Note Co-signed by Attending: Coverage Notice Comment: Tanner MAJANO Last DP export: 09/16/19 7:58 am Patient Name: PAOLO WILLINGHAM Page [id number] at 1958 All edits/amendments must be made on the electronic document DICTATION DATE: 09/18/191957 EXEC. CREATIVE DIRECTOR: DOUG 09/18/191957 RPT#: [id number] DC DATE: STATUS: ADM IN [facility] [address] [place] [address] END OF REPORT
--- NOTE | 2019-09-18 21:48 | NUR ---
PT IS RESTGIN IN BED WITH EYES CLOSED. TACH/SEDATED. VSS. GIVING MEDS ORDERED. WILL GIVE QUAIFENESIN SYRUP IN PEG TUBE AND FLUSH WITH 20ML OF H20 AND KEEP GRAVITY SYSTEM CLAMPED TO ALLOW FOR ABSORPTION AND THEN WILL UNCLAMP. BED IS LOW,SIDE RAISLX2,CALL LIGHT WITHIN REACH.WILL COTINUE TO MONITOR
--- NOTE | 2019-09-18 23:00 | NUR ---
PT IS RESTING IN BED WITH EYES CLOSED. TRACH/SEDATED. VSS. PEG TUBE UNCLAMPED AT THIS TIME. BED IS LOW,SIDE RAILSX2,CALL LIGTH WITHIN REACH.WILL CONTINUE TO MONITOR
[2019-09-19] VITALS (23 sets, daily range): BP systolic 90–115; BP diastolic 52–67
--- NOTE | 2019-09-19 00:43 | NUR ---
PT IS RESTING IN BED WITH EYES CLOSED. TRACH/SEDATED. VSS. ORAL CARE PROVIDED. PT FEET ARE BRIDGED OFF BED. BED IS LOW,SIDE RAISLX2,CALL LIGHT WITHIN REACH. WILL CONTINUE TO MONITOR
--- NOTE | 2019-09-19 03:02 | NUR ---
PERFORMING RE-ASSESSMENT AT THIS TIME. PT IS STILL ON FRESH TRACH PROTOCOL THEREFOR I CAN NOT TURN HIM. VSS. PERFORMED ORAL CARE AT THIS TIME. FEED ARE BRIDGED OFF BED. ALL LINES INTACT. RESTRAINTS TAKEN OFF AND REAPPLIED TO CHECK CIRULATION. CAP REFILL IS LESS THAN 3 SECONDS. HANDS ARE WARM. BED IS LOW,SIDE RAISLX2,CALL LIGHT WITHIN REACH.WILL CONTINUE TO MONITOR
[2019-09-19 04:15] LABS: BASOPHILS 0.5 % (0-2); EOSINOPHILS 4.9 % (0-7); HEMATOCRIT 29.6 % (42.0-54.0); HEMOGLOBIN 9.5 g/dL (13.5-17.5); IMMATURE GRANULOCYTES 0.5 % (0-5); MCH 30.8 pg (26.0-34.0); MCHC 32.1 g/dL (31.0-37.0); MCV 96.1 fL (80.0-100.0); MONOCYTES 14.3 % (2-11); NEUTROPHILS 63.8 % (40-80); PLATELET COUNT 112 10x3/uL (130-400); RBC 3.08 10x6/uL (4.20-6.10); RDW 14.9 % (11.5-14.5); WBC 4.1 10x3/uL (4.8-10.8)
[2019-09-19 04:30] LABS: ALBUMIN 1.5 g/dL (3.4-5.0); ALKALINE PHOSPHATASE 109 U/L (30-120); BILIRUBIN - TOTAL 2.33 mg/dL (0.2-1.3); CALC OSMOLALITY 284 mosm/kg (275-300); CALCIUM 7.6 mg/dL (8.5-10.1); CARBON DIOXIDE 30.6 mmol/L (21.0-32.0); CHLORIDE - SERUM 109 mmol/L (98-107); GLUCOSE 110 mg/dL (74-106); MAGNESIUM - SERUM 1.8 mg/dL (1.8-2.4); POTASSIUM - SERUM 3.8 mmol/L (3.5-5.1); PROTEIN - SERUM 4.7 g/dL (6.4-8.2); SODIUM 141 mmol/L (136-145); UREA NITROGEN 21 mg/dL (7-18); eGFR NON AFRICAN AMERICAN 76 mL/min (90-120)
[2019-09-19 04:32] LABS: ALT (SGPT) 35 U/L (10-68); PHOSPHOROUS 3.1 mg/dL (2.5-4.9)
--- NOTE | 2019-09-19 05:10 | NUR ---
PT IS RESTING IN BED WITH EYES CLOSED. OPENS EYES WHEN CALLED NAME. VSS. ORAL CARE PERFORMED. PT TOELERATED WELL. BED IS LOW,SIDE RAISLX2,CALL LIGHT WITHIN REACH.WILL CONTINUE TO MONITOR
--- NOTE | 2019-09-19 07:25 | NUR ---
pt is resting in bed with eyes closed. VSS. performed oral care. restraints observed. bed is low,side raislx2,call light within reach.
--- NOTE | 2019-09-19 08:48 | NUR ---
0700 REPORT RECIEVED AND CARE ASSUMED OF PATIENT .. AM ASSESMENT IS DONE SEE FLOW SHEET FOR FINDINGS.. PT IS WITH TRACH PROTOCOL IN PLACE AND ON VENT.. TRACH IS CDI.. PEG TUBE IS TO GRAVITY DRAIN..EDEMA TO UPPER EXTREMITIES IS GREATER THAN LOWER..
--- NOTE | 2019-09-19 11:32 | NUR ---
0930 SEDATION DECREASED TO 75 MCG AND PATIENT PLACED ON CPAP TRIAL BY RT 0945 BLOOD CULTURES DRAWN FROM CVL BY NURSE.. 1100 ASSESMENT IS DONE
--- NOTE | 2019-09-19 13:24 | NUR ---
1200 DR KUNZ IN TO SEE PT.. UPDATE IS GIVEN .. PATIENT REMAINS ON CPAP O2 TOLERATING WELL.. 1300 FAMILY PRACTICE IN TO SEE PT.. UPDATE IS GIVEN..
--- NOTE | 2019-09-19 17:40 | NUR ---
1500 CPAP CHANGED BACK TO VENT BY RT AC 18 TV 600 40% FIO2 5 PEEP.. PT TOLERATING TUBE FEEDING STARTED AT 10CC.. 1600 WIHTOUT CHANGES PT IS MORE RESPOMNSICWE TO TACTILE STIMULI I AND O DONE
--- NOTE | 2019-09-19 19:10 | NUR ---
RECIVED SHIFT REPORT AT BEDSIDE. PT IS RESTING WITH EYES CLOSED TRACH/SEDATED. OPEN EYES TO CALLED NAME BUT CAN NOT FOLLOW COMMANDS. VSS. MAHAN NOTED BELOW BLADDER AND DRAINING. RESTRAINTS OBSERVED BILAT WRIST WITH GOOD CAP REFILL AND CIRCULATION NOTED. WILL PERFORM FULL ASSESSMENT AND DOCUMENT IN FLOW SHEET. BED IS LOW,SIDE RAILSX2,CALL LIGHT WITHIN REACH. WILL CONTINUE TO MONITOR
--- NOTE | 2019-09-19 21:15 | NUR ---
CHECKED RESIDULA FROM PEG TUBE. 5ML ONLY. RESUMED FEEDING AT THIS TIME. PT IS STILL ON FRESH TRACH PROTOCOL. VSS. BED IS LOW,SIDE RAISLX2,CALL LIGHT WITHIN REACH. WILL CONTINUE TO MONITOR
--- NOTE | 2019-09-19 22:51 | NUR ---
PERFORMING RE-ASSESSMENT AND WILL DOCUMENT IN FLOW SHEET. VSS. PT LEFT ARM IS 3 PLUS EDEMA WEEPING LARGE AMOUNT. CLEANED LEFT ARM AND APPLIED NEW WICKING CHUCKS PAD UNDER ARM AND ELEVATED ON PILLOW. PT TOELRATED WELL. HEELS ARE STILL BRIDGED OFF THE BED WITH PILLOWS SUPPORTING KNEES. BED IS LOW,SIDE RAILSX2,CALL LIGHT WITHIN REACH. WILL CONTINUE TO MONITOR
[2019-09-20] VITALS (24 sets, daily range): BP systolic 79–157; BP diastolic 46–89
--- NOTE | 2019-09-20 00:29 | NUR ---
PT IS RESTING IN BED WITH EYES CLOSED. TRACH/SEDATED. VSS. RESPIRTORY IS AT BEDSIDE NOW. ORAL CARE DONE AFTER RT WAS FINISHED. BED IS LOW,SIDE RAISLX2,CALL LIGHT WITHIN REACH. WILL CONTINUE TO MONITOR
--- NOTE | 2019-09-20 03:00 | NUR ---
PERFORMED RE-ASSESSMENT AT THIS TIME. PERFORMED ORAL CARE WELL. PT TOLERATED WELL. VSS. HEALS ARE BRIDGED OFF BED. BED IS LOW,SIDE RAISLX2,CALL LIGHT WITHIN REACH. WILL CONTINUE TO MONITO R
[2019-09-20 03:29] LABS: BASOPHILS 0.3 % (0-2); EOSINOPHILS 6.6 % (0-7); HEMATOCRIT 28.3 % (42.0-54.0); IMMATURE GRANULOCYTES 0.5 % (0-5); LYMPHOCYTES 18.7 % (15-50); MCH 30.6 pg (26.0-34.0); MCHC 31.8 g/dL (31.0-37.0); MCV 96.3 fL (80.0-100.0); MEAN PLATELET VOLUME 10.1 fL (7.4-10.4); MONOCYTES 10.3 % (2-11); NEUTROPHILS 63.6 % (40-80); PLATELET COUNT 120 10x3/uL (130-400); RBC 2.94 10x6/uL (4.20-6.10); RDW 14.9 % (11.5-14.5); WBC 3.8 10x3/uL (4.8-10.8)
[2019-09-20 03:52] LABS: ALBUMIN 1.3 g/dL (3.4-5.0); ALKALINE PHOSPHATASE 95 U/L (30-120); ALT (SGPT) 33 U/L (10-68); BILIRUBIN - TOTAL 1.48 mg/dL (0.2-1.3); CALC OSMOLALITY 278 mosm/kg (275-300); CALCIUM 7.5 mg/dL (8.5-10.1); CARBON DIOXIDE 28.3 mmol/L (21.0-32.0); CHLORIDE - SERUM 107 mmol/L (98-107); GLUCOSE 121 mg/dL (74-106); POTASSIUM - SERUM 3.5 mmol/L (3.5-5.1); PROTEIN - SERUM 4.3 g/dL (6.4-8.2); SODIUM 138 mmol/L (136-145); UREA NITROGEN 18 mg/dL (7-18); eGFR NON AFRICAN AMERICAN 76 mL/min (90-120)
--- NOTE | 2019-09-20 05:12 | NUR ---
PT IS RESTINGIN BED TRACH/SEDATED. ORAL CARE PERFORMED. PT TOLERATED WELL. PERFORMED MAHAN CATHETOR CARE. PT IS STILL ON FRESH TRACH PROTOCOL SO WE ARE NOT ROLLING AT THIS TIME. I GAVE A TOP BATH WITH HCG AT THIS TIME. VS REMAINED STABLE. HALF LINENS CHAGNED. HEALS ARE BRIDGED OFF BED. BED IS LOW,SIDE RAILSX2,CALLLIGHT WITHIN REACH. WILL CONTINUE TO MONTIOR
--- NOTE | 2019-09-20 09:30 | NUR ---
PS 03/21 TRIAL @ 801
--- NOTE | 2019-09-20 10:00 | NUR ---
0700 REPORT RECIEVED AND CARE ASSUMED.. CHG BATH GIVEN IMMIDIATLY AND WHILE RT AND NURSE HELP AVAILABLE PT TURNED AND AIROVERLAY MATTRESS PLACED ON BED WITH CLEAN LINENES.. PATIENT TOLERATED WELL.. SKIN EXAMINED AND NO REDNESS OR EXCORIATION NOTED. TRACH TO VENT.. SEE FLOW SHEET FOR ASSESMENT FINDINGS.. 0800 WITHOUT CHANGES AT THIS TIME.. 0900 SEDATION DECRESED FROM 75 TO 45 MCG. 0910 RESP THERAPY CHANGED PATIENT FROM VENT TO CPAP.. O2 SAT DROPPED AND FIO2 INCREASED TO 45
--- NOTE | 2019-09-20 11:54 | NUR ---
1030 REMAINS ON CPAP O2.. DR JONAS IN TO SEE PT.. 1130 CVP TO PATIENT.. CVP [address] .. 1145 DR KUNZ IN TO SEE PT.. CVP RESULTS GIVEN TO HIM.. SCD REMOVED PER DR KUNZ PT IS ON LOVENOX.. BP CUFF IS CHANGED TO RIGHT LEG AND BP IS 141 SYSTOLIC.. CONTINUES ON CPAP O2 FENTANYLL IS TURNED OFF AT THIS TIME.. PER DR KUNZ IVF IS TURNED TO 50CC/HR PER DR KUNZ ALSO
--- NOTE | 2019-09-20 15:31 | NUR ---
1400 PLACED BACK ON VENTILATOR BY RT PT TOLERATED ALL VERY WELL.. OPENING EYES MORE SPONTANEOUSLY THAN EARLIER FENTANYLL REMAINS OFF.. PATIENT IS CALM
--- NOTE | 2019-09-20 21:00 | NUR ---
Pt is laying in bed with eyes open. Repositioned for comfort. Oral care performed. No further needs noted at this time. No s/s of distress. Will continue to monitor.
--- NOTE | 2019-09-20 23:00 | NUR ---
Reassessment completed, see flowsheet for details. Pt is laying in bed with eyes closed. Repositioned for comfort. Oral care performed. No s/s of distress. Will continue to monitor.
[2019-09-21] VITALS (25 sets, daily range): BP systolic 110–208; BP diastolic 54–95
--- NOTE | 2019-09-21 01:00 | NUR ---
Pt is laying in bed with eyes closed. Repositioned for comfort. Oral care performed. No further needs noted at this time. No s/s of distress. Will continue to monitor.
--- NOTE | 2019-09-21 03:00 | NUR ---
Reassessment completed, see flowsheet for details. Pt is laying in bed with eyes closed. Repositioned for comfort. Oral care performed. No further needs noted. No s/s of distress. Will continue to monitor.
[2019-09-21 05:18] LABS: BASOPHILS 0.3 % (0-2); EOSINOPHILS 7.8 % (0-7); HEMATOCRIT 28.3 % (42.0-54.0); HEMOGLOBIN 9.1 g/dL (13.5-17.5); IMMATURE GRANULOCYTES 0.5 % (0-5); LYMPHOCYTES 16.6 % (15-50); MCH 30.6 pg (26.0-34.0); MCHC 32.2 g/dL (31.0-37.0); MCV 95.3 fL (80.0-100.0); MEAN PLATELET VOLUME 10.8 fL (7.4-10.4); MONOCYTES 16.1 % (2-11); NEUTROPHILS 58.7 % (40-80); RBC 2.97 10x6/uL (4.20-6.10); RDW 14.3 % (11.5-14.5); WBC 3.7 10x3/uL (4.8-10.8)
[2019-09-21 05:20] LABS: PLATELET COUNT 148 10x3/uL (130-400)
[2019-09-21 05:33] LABS: ALBUMIN 1.2 g/dL (3.4-5.0); BILIRUBIN - TOTAL 0.82 mg/dL (0.2-1.3); CALCIUM 7.3 mg/dL (8.5-10.1); CARBON DIOXIDE 26.5 mmol/L (21.0-32.0); CREATININE - SERUM 1.1 mg/dL (0.6-1.3); POTASSIUM - SERUM 3.5 mmol/L (3.5-5.1); PROTEIN - SERUM 4.3 g/dL (6.4-8.2)
--- NOTE | 2019-09-21 07:00 | NUR ---
PT REPORT RECEIVED FROM LOG SKIDDER NURSE. NO ACUTE SIGNS OF DISTRESS NOTED. SHIFT ASSESSMENT COMPLETED. WILL CONTINUE TO MONITOR
--- NOTE | 2019-09-21 08:14 | NUR ---
Nutrition follow-up: s/p Trach/PEG Pulmocare infusing @ 40 ml/hr Labs reviewed Wt: 285# Recommend increasing TF to goal rate of 60 ml/hr to better meet estimated energy needs. RDN following.
--- NOTE | 2019-09-21 08:20 | NUR ---
RT IN ROOM. SWITCHED PT OVER TO CPAP.
--- NOTE | 2019-09-21 09:15 | NUR ---
DR TONEY IN ROOM. UPDATE GIVEN. WILL CONTINUE TO MONITOR
--- NOTE | 2019-09-21 10:20 | NUR ---
PT SWITCHED BACK TO ASSIST CONTROL BY RT. WILL CONTINUE TO MONITOR
--- NOTE | 2019-09-21 12:10 | NUR ---
DR HERNANDEZ IN ROOM. UPDATE GIVEN. WILL CONTINUE TO MONITOR
[2019-09-21 12:11] LABS: POTASSIUM - SERUM 3.9 mmol/L (3.5-5.1); VANCOMYCIN - TROUGH 25.3 ug/mL (10.0-20.0)
--- NOTE | 2019-09-21 13:09 | NUR ---
DR ALEGRIA AT BEDSIDE. UPDATE GIVEN. NO NEW ORDERS. WILL CONTINUE TO MONITOR
--- NOTE | 2019-09-21 15:04 | NUR ---
SPOKE WITH PT SON ABOUT PLANS FOR LTAC. STATED THAT HE AND THE PT NEPHEW ARE CURRENTLY WORKING TO FIND A PLACE. WILL KNOW MORE LATER THIS WEEK.
--- NOTE | 2019-09-21 20:41 | MORECARE ---
CASE MANAGEMENT DISCHARGE SUMMARY PATIENT: PAOLO WILLINGHAM UNIT: [id number] ADM DATE: 08/24/19 AGE: 83 : 37 SEX: M ROOM/BED: D.2304 AUTHOR: JON,DOC PHYSICIAN: REFERRING PHYSICIAN: SHILO HERNANDEZ MD DATE OF SERVICE: 09/21/19 Discharge Plan Patient Name: PAOLO WILLINGHAM Facility: [facility]:[place] : 1935 Planned Disposition: Home with Home Health Anticipated Discharge Date: Discharge Date: Expected LOS: Initial Reviewer: [email or web address] Initial Review Date: 08/24/2019 Generated: 09/21/19 9:40 pm Comments DCP- Discharge Planning Updated by [id number]: Romy Main on 09/21/19 7:[address] CM spoke with Brett Willingham patient's nephew regarding LTACH placement. CM gave him names and numbers of facilities [facility]. Brett stated he would research facilities and get back in touch with CM with decision. CM will continue to follow and assist as needed with discharge planning needs. DCP- Discharge Planning Updated by [id number]: Romy Main on 09/18/19 6:[address] CM called to speak to son Sandro Willingham to discuss LTACH options. Sandro stated that he would call back tomorrow he wanted to speak to his cousin Brett. CM will continue to follow and assist as needed with discharge planning / needs. DCP- Discharge Planning Updated by [id number]: Romy Main on 08/27/19 5:[address] Patient Name: PAOLO WILLINGHAM Admission Status: ER Accout number: [id number] Admission Date: 08-24-2019 : 1935 Admission Diagnosis:SEPSIS, UNSPECIFIED ORGANISM Attending: SHILO HERNANDEZ Current LOS: 3 Anticipated DC Date: Planned Disposition: Home with Home Health Primary Insurance: [facility] [employer]UT[employer] Discharge Planning Comments: CM met with patient and nephew Brett Wright to complete initial dc planning assessment. CM educated patient on the CM role and verbal consent given by patient to complete assessment. CM verified patient's address, phone number, and emergency contact phone numbers. Patient lives at home independently. Patient live in small apartment on Brett's property. CM discussed availability of home health, rehab services, and medical equipment. Patient has home health with [facility] and plans to resume upon discharge. DEBBIE signed. Patient has home / portable 02and nebulizer with unknown provider. Brett is concerned that patient may require more care that HH can provide upon discharge. CM explained that we will re-evaluate closer to discharge. CM will continue to follow and will assist as needed with dc plans/needs. Credit Or Loans Officer: Romy Main DCP- Discharge Planning Updated by [id number] Main on 08/25/19 2:[address] CM attempted to complete discharge planning assessment. Patient is currently on vent and sedated. No family available. CM attempted to call nephjoão Willingham [phone] but didn't get an answer. CM will continue to follow and assist as needed with discharge planning / needs. CM received a call from [facility] that the patient was under their care. They plan to resume care with him upon discharge. DCPIA - Discharge Planning Initial Assessment Updated by [email or web address]: Romy Main on 08/27/19 6:31 pm * Is the patient Alert and Oriented? No * How many steps to enter\exit or inside your home? * PCP JASMIN JHA * [facility] / * Preadmission Environment Home Alone * ADLs Independent * Other Equipment HOME/ PORTABLE 02, NEBULIZER * List name and contact numbers for known caregivers / representatives who currently or will assist patient after discharge: BRETT JONES - [phone] SANDRO Mustafa SON - [phone] * Verbal permission to speak to the caregivers and representatives has been obtained from the patient. N/A * Community resources currently utilized Home Health * Please name any agencies selected above. [facility] * Additional services required to return to the preadmission environment? No * Can the patient safely return to the preadmission environment? Yes * Has this patient been hospitalized within the prior 30 days at any hospital? No Coverage Notice Reviewer: [email or web address] Ramsey Main Notice Issued Date-Time: 08/27/2019 18:24 Notice Type: Patient Choice Letter Notice Delivered To: Family Member Relationship to Patient: Nephew Supervisor Ticket Sales Name: Brett Willingham Delivery Method: HAND - Hand Delivered Lisa Days: Prior Verbal Notification: Recipient Understood Notice: Yes Recipient Signature: Yes Med Rec Note Co-signed by Attending: Coverage Notice Comment: Tanner Tavares [facility] Last DP export: 09/18/19 6:58 pm Patient Name: PAOLO WILLINGHAM Page 11350 at 2040 All edits/amendments must be made on the electronic document DICTATION DATE: 09/21/192039 CRIMINALIST TECHNICIAN: DOUG 09/21/192039 RPT#: [id number] DC DATE: STATUS: ADM IN [facility] [address] [place] [address] END OF REPORT
[2019-09-22] VITALS (20 sets, daily range): BP systolic 113–163; BP diastolic 55–89
[2019-09-22 06:22] LABS: BASOPHILS 0.3 % (0-2); EOSINOPHILS 7.3 % (0-7); HEMATOCRIT 25.5 % (42.0-54.0); HEMOGLOBIN 8.1 g/dL (13.5-17.5); IMMATURE GRANULOCYTES 0.8 % (0-5); LYMPHOCYTES 19.1 % (15-50); MCH 30.2 pg (26.0-34.0); MCHC 31.8 g/dL (31.0-37.0); MCV 95.1 fL (80.0-100.0); MEAN PLATELET VOLUME 10.7 fL (7.4-10.4); MONOCYTES 19.1 % (2-11); NEUTROPHILS 53.4 % (40-80); PLATELET COUNT 176 10x3/uL (130-400); RBC 2.68 10x6/uL (4.20-6.10); RDW 14.3 % (11.5-14.5); WBC 3.6 10x3/uL (4.8-10.8)
[2019-09-22 06:53] LABS: ANION GAP 8.1 mmol/L (8-16); BILIRUBIN - TOTAL 0.58 mg/dL (0.2-1.3); CALCIUM 7.3 mg/dL (8.5-10.1); CARBON DIOXIDE 27.1 mmol/L (21.0-32.0); CREATININE - SERUM 1.3 mg/dL (0.6-1.3); POTASSIUM - SERUM 4.2 mmol/L (3.5-5.1)
--- NOTE | 2019-09-22 07:00 | NUR ---
REC'D REPORT AND RESUEMD CARE, ETT TO VENTILATION AND SECURED, 40% FIO2 IN USE WITH 99% SAT, OTHER VSS, LEFT IJ WITH NS INFUSING AT 50 CC/HR, SEDATION IS OFF AT THIS TIME, CVP ZEROED AND READING 15, PEG TUBE IN PLACE WITH TF AT 40 CC/HR, RESIDUAL CHECK 30 CC, MAHAN TO GRAVITY WITH JODY DRAINAGE TO BAG, OPENS EYES, DOES NOT FOLLOW DIRECTIONS, ASSESSMENT COMPLETED PER FLOWSHEET, REPOSITIONED TO RIGHT SIDE ORAL CARE AND SUCTION COMPLETED
--- NOTE | 2019-09-22 11:12 | NUR ---
Nutrition consult: Received verbal order from Dr. Heard to increase TF to 60 ml/hr to bettert meet pts long-term estimated nutritional needs. RDN following.
[2019-09-22 14:08] LABS: FUNGUS CULTURE RESULT 1 Candida krusei (()); FUNGUS MYCOLOGY CULTURE Final report (())
--- NOTE | 2019-09-22 23:00 | NUR ---
NO CHANGE FROM PREVIOUS SHIFT ASSESSMENT. PATIENT IN GOOD STABLE CONDITION.
[2019-09-23] VITALS (24 sets, daily range): BP systolic 113–185; BP diastolic 57–114
--- NOTE | 2019-09-23 03:00 | NUR ---
NO CHANGE FROM PREVIOUS ASSESSMENTS. PATIENT IN GOOD STABLE CONDITION.
[2019-09-23 06:53] LABS: HEMATOCRIT 25.8 % (42.0-54.0); HEMOGLOBIN 8.2 g/dL (13.5-17.5); MCHC 31.8 g/dL (31.0-37.0); MCV 94.5 fL (80.0-100.0); MEAN PLATELET VOLUME 10.7 fL (7.4-10.4); RBC 2.73 10x6/uL (4.20-6.10); RDW 14.2 % (11.5-14.5); WBC 3.4 10x3/uL (4.8-10.8)
[2019-09-23 06:54] LABS: PLATELET COUNT 214 10x3/uL (130-400)
--- NOTE | 2019-09-23 07:00 | NUR ---
REC'D REPORT AND RESUMED CARE, RESTING IN BED WITH EYES OPENS, TRACKS VOICE, TURNS HEAD, DOES NOT FOLLOW COMMANDS, LEFT IJ TL WITH D51/2NS INFUSING, 3+ WEEPING EDEMA NOTED IN UPPER LEFT ARM, BELLY DISTENDED AND SOFT, G TUBE WITH TF INFUSING, RESIDUAL RESIDUAL CHECK, 10 CC, MAHAN TO GRAVITY WITH JODY DRAINAGE TO BAG, AIR OVERLAY MATTRESS IN USE, TRACH TO VENT AND SECURED, REPOSITIONE TO RIGHT SIDE WITH PILLOW TO BACK AND HEELS FLOATED
[2019-09-23 07:06] LABS: ANION GAP 7.3 mmol/L (8-16); BILIRUBIN - TOTAL 0.49 mg/dL (0.2-1.3); CALCIUM 7.5 mg/dL (8.5-10.1); CARBON DIOXIDE 27.4 mmol/L (21.0-32.0); CREATININE - SERUM 1.2 mg/dL (0.6-1.3); POTASSIUM - SERUM 3.7 mmol/L (3.5-5.1)
[2019-09-23 07:36] LABS: EOSINOPHILS 7 % (0-7); LYMPHOCYTES 9 % (15-50); MONOCYTES 17 % (2-11); NEUTROPHILS 67 % (40-80); PLATELET ESTIMATE NORMAL
--- NOTE | 2019-09-23 09:08 | MORECARE ---
CASE MANAGEMENT DISCHARGE SUMMARY PATIENT: PAOLO WILLINGHAM UNIT: [id number] ADM DATE: 08/24/19 AGE: 83 : 37 SEX: M ROOM/BED: D.2304 AUTHOR: JON,DOC PHYSICIAN: REFERRING PHYSICIAN: SHILO HERNANDEZ MD DATE OF SERVICE: 09/23/19 Discharge Plan Patient Name: PAOLO WILLINGHAM Facility: [facility]:[place] : 1935 Planned Disposition: Home with Home Health Anticipated Discharge Date: Discharge Date: Expected LOS: Initial Reviewer: [email or web address] Initial Review Date: 08/24/2019 Generated: 09/23/19 10:07 am Comments DCP- Discharge Planning Updated by [id number]: Romy Main on 09/23/19 8:[address] CM called and spoke with Brett again yesterday regarding LTACH placement. He stated they are still looking at facilities. HE STATED THIS IS GOING TO TAKE A LITTLE TIME. CM stated that we need to know [facility]. CM will continue to follow and assist as needed with discharge planning / needs. DCP- Discharge Planning Updated by [id number]: Romy Main on 09/21/19 7:[address] CM spoke with Brett Willingham patient's nephew regarding LTACH placement. CM gave him names and numbers of facilities within the state. Brett stated he would research facilities and get back in touch with CM with decision. CM will continue to follow and assist as needed with discharge planning needs. DCP- Discharge Planning Updated by [email or web address]: Romy Main on 09/18/19 6:[address] CM called to speak to son Sandro Willingham to discuss LTACH options. Sandro stated that he would call back tomorrow he wanted to speak to his cousin Brett. CM will continue to follow and assist as needed with discharge planning / needs. DCP- Discharge Planning Updated by [email or web address]: Romy Main on 08/27/19 5:[address] Patient Name: PAOLO WILLINGHAM Admission Status: ER Accout number: [id number] Admission Date: 08-24-2019 : 1935 Admission Diagnosis:SEPSIS, UNSPECIFIED ORGANISM Attending: SHILO HERNANDEZ Current LOS: 3 Anticipated DC Date: Planned Disposition: Home with Home Health Primary Insurance: [facility] MEDICARE SOLUTIONS Discharge Planning Comments: CM met with patient and nephew Brett Wright to complete initial dc planning assessment. CM educated patient on the CM role and verbal consent given by patient to complete assessment. CM verified patient's address, phone number, and emergency contact phone numbers. Patient lives at home independently. Patient live in small apartment on Brett's property. CM discussed availability of home health, rehab services, and medical equipment. Patient has home health with [facility] and plans to resume upon discharge. DEBBIE signed. Patient has home / portable 02and nebulizer with unknown provider. Brett is concerned that patient may require more care that HH can provide upon discharge. CM explained that we will re-evaluate closer to discharge. CM will continue to follow and will assist as needed with dc plans/needs. Security System Installer: Romy Main DCP- Discharge Planning Updated by [email or web address]: Romy Main on 08/25/19 2:[address] CM attempted to complete discharge planning assessment. Patient is currently on vent and sedated. No family available. CM attempted to call lisseth Willingham [phone] but didn't get an answer. CM will continue to follow and assist as needed with discharge planning / needs. CM received a call from [facility] that the patient was under their care. They plan to resume care with him upon discharge. DCPIA - Discharge Planning Initial Assessment Updated by [id number]: Romy Main on 08/27/19 6:31 pm * Is the patient Alert and Oriented? No * How many steps to enter\exit or inside your home? * PCP JASMIN JHA * Pharmacy [facility] * Preadmission Environment Home Alone * ADLs Independent * Other Equipment HOME/ PORTABLE 02, NEBULIZER * List name and contact numbers for known caregivers / representatives who currently or will assist patient after discharge: BRETT JONES - [phone] SANDRO BAINS - [phone] * Verbal permission to speak to the caregivers and representatives has been obtained from the patient. N/A * Community resources currently utilized Home Health * Please name any agencies selected above. [facility] * Additional services required to return to the preadmission environment? No * Can the patient safely return to the preadmission environment? Yes * Has this patient been hospitalized within the prior 30 days at any hospital? No Coverage Notice Reviewer: [id number] Ramsey Main Notice Issued Date-Time: 08/27/2019 18:24 Notice Type: Patient Choice Letter Notice Delivered To: Family Member Relationship to Patient: Nephew Host And Hostess Name: Brett Willingham Delivery Method: HAND - Hand Delivered Lisa Days: Prior Verbal Notification: Recipient Understood Notice: Yes Recipient Signature: Yes Med Rec Note Co-signed by Attending: Coverage Notice Comment: Tanner Tavares Last DP export: 09/21/19 7:41 pm Patient Name: PAOLO WILLINGHAM Page [id number] at 0908 All edits/amendments must be made on the electronic document DICTATION DATE: 09/23/19906 CARGO BROKER: DOUG 09/23/19906 RPT#: [id number] DC DATE: STATUS: ADM IN [facility] [address] [place] [address] END OF REPORT
--- NOTE | 2019-09-23 09:39 | NUR ---
Nutrition follow-up: Pt with trach/PEG Pulmocare continues @ 40 ml/hr Labs reviewed Wt: 286# Spoke with nursing re: increasing TF to goal rate of 60 ml/hr TF advanced to 50 ml @ this time. Will be at goal rate of 60 ml/hr today. RDN following.
--- NOTE | 2019-09-23 09:40 | NUR ---
MORNING MEDS GIVEN WITHOUT DIFFICULTY, PER MAR ORDER
--- NOTE | 2019-09-23 09:45 | NUR ---
TF INCREASED TO 50 CC/HR PER ORDER
--- NOTE | 2019-09-23 11:00 | NUR ---
LARGE DIAHHREA STOOL, CHG BATH GIVEN, REPOSITIONED TO BACK WITH HEELS FLOATED, NO OTHER ACUTE CHANGE FROM PREVIOUS ASSESSMENT, VSS, WILL CONTINUE WITH POC
--- NOTE | 2019-09-23 11:45 | OP ---
PATIENT NAME: PAOOL WILLINGHAM MEDICAL RECORD: [id number] :[birth year] LOCATION:[facility] D.2304 ADMISSION DATE:08/24/19 SURGEON: ANGIE ALEGRIA MD DATE OF OPERATION: 09/18/2019 PREOPERATIVE DIAGNOSES: 1. Prolonged ventilatory failure. 2. Acute malnutrition. 3. Outdated central venous line. POSTOPERATIVE DIAGNOSES: 1. Prolonged ventilatory failure. 2. Acute malnutrition. 3. Outdated central venous line. 4. Diffuse moderate stress gastritis. 5. Diffuse tracheobronchitis. 6. Number of thin mucus plugs involving many of the segmental bronchi. PROCEDURES: 1. Esophagogastroduodenoscopy with antral biopsies. 2. Percutaneous endoscopic gastrostomy tube placement, 20 Libyan. 3. Therapeutic and diagnostic bronchoscopy with bronchoalveolar lavage. 4. Percutaneous tracheostomy placement, 9 mm. 5. Left neck triple lumen central venous catheter placement. SURGEON: Angie Alegria MD JAVA SDET: None. BLOOD LOSS: Minimal. ANESTHESIA: General. COMPLICATIONS: None. The risks, possible complications and alternatives to the procedure were explained to the patient and his family. They elected to proceed. The plan is for the patient being moved to a LTAC facility after these procedures are performed. OPERATIVE COURSE: The patient was conveyed to the operating room electively on 09/18/2019. General anesthesia was induced by the anesthesia staff. The abdomen was sterilely prepped and draped. A bite block was inserted. A gastroscope was inserted into the mouth. It was advanced easily into the hypopharynx. The esophagus was easily intubated as were the stomach and duodenum. Upon withdrawal, retroflexed and angulus views were obtained. Antral biopsies were obtained to rule out H. pylori. I was able to transilluminate the abdomen. I was able to see the transilluminated gastroscope through the patient's skin. I chose an area for insertion of the gastrostomy tube that was in the epigastrium just to the left. This area was infiltrated with a local anesthetic. Skin incision was accomplished. I advanced an Angiocath type catheter through the incision and punctured the anterior fundus of the stomach on the first try. OPERATIVE REPORT [id number] PAOLO WILLINGHAM Through the Angiocath, I advanced a wire. This was grasped with an endoscopic snare and was withdrawn out through the patient's mouth. The wire was attached to a pull-type gastrostomy tube, which was then pulled into place. I re-endoscoped the patient's esophagus and stomach. The gastrostomy tube was easily identified and appeared to be well placed. The hub and flange devices were attached. A sterile dressing was applied. Attention was then turned to placement of the tracheostomy tube. The neck was sterilely prepped and draped. On the left side of the neck, I percutaneously accessed the left subclavian vein utilizing a supraclavicular approach. A guidewire passed easily. A small skin miki was accomplished. A triple lumen central venous catheter was inserted over the wire. The wire was removed. The central venous line was then sutured to the underlying skin with 2-0 silks. All lumens flushed easily and aspirated dark, nonpulsatile blood. A portable chest x-ray will be obtained post operatively. Attention was then turned to the tracheostomy. A midline incision was accomplished in the suprasternal notch. I dissected down to the strap muscles, which were retracted laterally. I then dissected down to the trachea and cleaned this off with a Kitner dissector. A bronchoscopic adapter was applied to the endotracheal tube. Through the adapter, I advanced the well lubricated bronchoscope. I advanced to the peewee. I first examined the left lung and then the right lung. I irrigated with normal saline and aspirated until all the segmental bronchi were cleared. I then withdrew the bronchoscope to the end of endotracheal tube. I then had the nurse online project manager withdraw the bronchoscope and the endotracheal tube as one unit. I was able to indent the trachea and visualized this bronchoscopically. I punctured the second ring of the anterior portion of the trachea and the Angiocath caudad. I advanced a wire. Over the wire, I dilated to a larger size. I then mounted a well lubricated 9 mm percutaneous tracheostomy tube on an obturator. This was advanced down into the trachea. I then inflated the balloon. The obturator and wire were removed. I then quickly performed a bronchoscopic examination through the 9 mm tracheostomy tube. It was well placed. I was able to aspirate some fluid around the peewee. We then attached the corrugated tubing to the tracheostomy tube and began ventilating the patient. The flange of the tracheostomy tube was sutured to the underlying skin with 2-0 silks. I then closed the skin around the tracheostomy tube with 3-0 Vicryls. Tisseel was then added to the area around the tracheostomy tube as an additional biologic sealant. The patient was then conveyed to the intensive care unit in critical, but stable condition. TRANSINT:[id number] Voice Confirmation ID: [id number] DOCUMENT ID: [id number] OPERATIVE REPORT [id number] PAOLO WILLINGHAM, ANGIE ONTIVEROS at 1145 CC: [id number] DICTATION DATE: 09/21/19 1350 SENIOR QA TESTER: 09/21/19 1946 ADM IN [facility] [address] [id number]
--- NOTE | 2019-09-23 12:30 | NUR ---
VANC TROUGH DRAWN AND TAKEN TO LAB
--- NOTE | 2019-09-23 13:56 | MORECARE ---
CASE MANAGEMENT DISCHARGE SUMMARY PATIENT: PAOLO WILLINGHAM UNIT: [id number] ADM DATE: 08/24/19 AGE: 83 : 37 SEX: M ROOM/BED: D.2304 AUTHOR: JON,DOC PHYSICIAN: REFERRING PHYSICIAN: SHILO HERNANDEZ MD DATE OF SERVICE: 09/23/19 Discharge Plan Patient Name: PAOLO WILLINGHAM Facility: [facility]:[place] : 1935 Planned Disposition: Home with Home Health Anticipated Discharge Date: Discharge Date: Expected LOS: Initial Reviewer: [email or web address] Initial Review Date: 08/24/2019 Generated: 09/23/19 2:55 pm Comments DCP- Discharge Planning Updated by [email or web address]: Romy Main on 09/23/19 8:[address] CM called and spoke with Brett again yesterday regarding LTACH placement. He stated they are still looking at facilities. HE STATED THIS IS GOING TO TAKE A LITTLE TIME. CM stated that we need to know [facility]. CM will continue to follow and assist as needed with discharge planning / needs. DCP- Discharge Planning Updated by [email or web address]: Romy Main on 09/21/19 7:[address] CM spoke with Brett Willingham patient's nephew regarding LTACH placement. CM gave him names and numbers of facilities within the state. Brett stated he would research facilities and get back in touch with CM with decision. CM will continue to follow and assist as needed with discharge planning needs. DCP- Discharge Planning Updated by [email or web address]: Romy Main on 09/18/19 6:[address] CM called to speak to son Sandro Willingham to discuss LTACH options. Sandro stated that he would call back tomorrow he wanted to speak to his cousin Brett. CM will continue to follow and assist as needed with discharge planning / needs. DCP- Discharge Planning Updated by [email or web address]: Romy Main on 08/27/19 5:[address] Patient Name: PAOLO WILLINGHAM Admission Status: ER Accout number: [id number] Admission Date: 08-24-2019 : 1935 Admission Diagnosis:SEPSIS, UNSPECIFIED ORGANISM Attending: SHILO HERNANDEZ Current LOS: 3 Anticipated DC Date: Planned Disposition: Home with Home Health Primary Insurance: [facility] [employer] Discharge Planning Comments: CM met with patient and nephew Brett Wright to complete initial dc planning assessment. CM educated patient on the CM role and verbal consent given by patient to complete assessment. CM verified patient's address, phone number, and emergency contact phone numbers. Patient lives at home independently. Patient live in small apartment on Brett's property. CM discussed availability of home health, rehab services, and medical equipment. Patient has home health with [facility] and plans to resume upon discharge. DEBBIE signed. Patient has home / portable 02and nebulizer with unknown provider. Brett is concerned that patient may require more care that HH can provide upon discharge. CM explained that we will re-evaluate closer to discharge. CM will continue to follow and will assist as needed with dc plans/needs. Search Advertising Strategist: Romy Main DCP- Discharge Planning Updated by [email or web address]: Romy Main on 08/25/19 2:[address] CM attempted to complete discharge planning assessment. Patient is currently on vent and sedated. No family available. CM attempted to call lisseth Willingham [phone] but didn't get an answer. CM will continue to follow and assist as needed with discharge planning / needs. CM received a call from [facility] that the patient was under their care. They plan to resume care with him upon discharge. DCPIA - Discharge Planning Initial Assessment Updated by [email or web address]: Romy Main on 08/27/19 6:31 pm * Is the patient Alert and Oriented? No * How many steps to enter\exit or inside your home? * PCP JASMIN JHA * Pharmacy [facility] * Preadmission Environment Home Alone * ADLs Independent * Other Equipment HOME/ PORTABLE 02, NEBULIZER * List name and contact numbers for known caregivers / representatives who currently or will assist patient after discharge: BRETT JONES - [phone] SANDRO BAINS - [phone] * Verbal permission to speak to the caregivers and representatives has been obtained from the patient. N/A * Community resources currently utilized Home Health * Please name any agencies selected above. [facility] * Additional services required to return to the preadmission environment? No * Can the patient safely return to the preadmission environment? Yes * Has this patient been hospitalized within the prior 30 days at any hospital? No External Providers External Provider: [facility] Next Contact Date: Service Request Date: Service Type: Resolution: Reviewer: Comments: Coverage Notice Reviewer: [id number] Ramsey Main Notice Issued Date-Time: 08/27/2019 18:24 Notice Type: Patient Choice Letter Notice Delivered To: Family Member Relationship to Patient: Nephew Executive Account Manager Name: Brett Willingham Delivery Method: HAND - Hand Delivered Lsia Days: Prior Verbal Notification: Recipient Understood Notice: Yes Recipient Signature: Yes Med Rec Note Co-signed by Attending: Coverage Notice Comment: [facility] Reviewer: [id number] Ramsey Main Notice Issued Date-Time: 09/23/2019 11:27 Notice Type: Patient Choice Letter Notice Delivered To: Family Member Relationship to Patient: Son Executive Account Manager Name: SANDRO WILLINGHAM Delivery Method: PHONE - Phone Lisa Days: Prior Verbal Notification: Recipient Understood Notice: Yes Recipient Signature: Yes Med Rec Note Co-signed by Attending: Coverage Notice Comment: [facility] Last DP export: 09/23/19 8:08 am Patient Name: PAOLO WILLINGHAM Page [id number] at 1356 All edits/amendments must be made on the electronic document DICTATION DATE: 09/23/19 1355 HOME PERFORMANCE CONSULTANT: DOUG 09/23/19 1355 RPT#: [id number] DC DATE: STATUS: ADM IN [facility] [address] [place] [address] END OF REPORT
--- NOTE | 2019-09-23 15:00 | NUR ---
RESTING WITH NO SIGNS OF DISTRESS, VSS, WEHN REPOSITONING, GRIMACES, AND WITHDRAWS, NO OTHER ACUTE CHANGE FROM PREVIOUS ASSESSMENT
--- NOTE | 2019-09-23 18:30 | NUR ---
RESTING WITH NO SIGNS OF DISTRESS, VSS, REPOSTIONED TO BACK WITH HEELS FLOATED
--- NOTE | 2019-09-23 19:00 | NUR ---
ASSESSMENT COMPLETED. SEE FLOWSHEETS FOR ALL FINDINGS. PT SEDATED ON VENT, AROUSES WITH VOICES, NOT OPEN EYES OR FALLOW COMMANDS, WITHDRAWS FOR PAIN. SR ON CM. PPP. CONT TO MONITOR.
--- NOTE | 2019-09-23 20:00 | NUR ---
PT INCONTINENT OF STOOL. MAHAN AND BIBI CARE PROVIDED. SKIN CARE DONE. LINEN CHANGED. REPOSITIONED FOR COMFORT. HOB UP. WAGES IN USE FOR SUPPORT. CPOC.
--- NOTE | 2019-09-23 20:43 | MORECARE ---
CASE MANAGEMENT DISCHARGE SUMMARY PATIENT: PAOLO WILLINGHAM UNIT: [id number] ADM DATE: 08/24/19 AGE: 83 : 37 SEX: M ROOM/BED: D.2304 AUTHOR: JON,DOC PHYSICIAN: REFERRING PHYSICIAN: SHILO HERNANDEZ MD DATE OF SERVICE: 09/23/19 Discharge Plan Patient Name: PAOLO WILLINGHAM Facility: [facility]:[place] : 1935 Planned Disposition: Home with Home Health Anticipated Discharge Date: Discharge Date: Expected LOS: Initial Reviewer: [email or web address] Initial Review Date: 08/24/2019 Generated: 09/23/19 9:42 pm Comments DCP- Discharge Planning Updated by [email or web address]: Romy Main on 09/23/19 8:[address] CM called and spoke with Brett again yesterday regarding LTACH placement. He stated they are still looking at facilities. HE STATED THIS IS GOING TO TAKE A LITTLE TIME. CM stated that we need to know [facility]. CM will continue to follow and assist as needed with discharge planning / needs. DCP- Discharge Planning Updated by [email or web address]: Romy Main on 09/21/19 7:[address] CM spoke with Brett Willingham patient's nephew regarding LTACH placement. CM gave him names and numbers of facilities within the state. Brett stated he would research facilities and get back in touch with CM with decision. CM will continue to follow and assist as needed with discharge planning needs. DCP- Discharge Planning Updated by [email or web address]: Romy Main on 09/18/19 6:[address] CM called to speak to son Sandro Willingham to discuss LTACH options. Sandro stated that he would call back tomorrow he wanted to speak to his cousin Brett. CM will continue to follow and assist as needed with discharge planning / needs. DCP- Discharge Planning Updated by [email or web address]: Romy Main on 08/27/19 5:[address] Patient Name: PAOLO WILLINGHAM Admission Status: ER Accout number: [id number] Admission Date: 08-24-2019 : 1935 Admission Diagnosis:SEPSIS, UNSPECIFIED ORGANISM Attending: SHILO HERNANDEZ Current LOS: 3 Anticipated DC Date: Planned Disposition: Home with Home Health Primary Insurance: [facility] MEDIC[employer]UTIONS Discharge Planning Comments: CM met with patient and nephew Brett Wright to complete initial dc planning assessment. CM educated patient on the CM role and verbal consent given by patient to complete assessment. CM verified patient's address, phone number, and emergency contact phone numbers. Patient lives at home independently. Patient live in small apartment on Brett's property. CM discussed availability of home health, rehab services, and medical equipment. Patient has home health with [facility] and plans to resume upon discharge. DEBBIE signed. Patient has home / portable 02and nebulizer with unknown provider. Brett is concerned that patient may require more care that HH can provide upon discharge. CM explained that we will re-evaluate closer to discharge. CM will continue to follow and will assist as needed with dc plans/needs. Mental Health Professional: Romy Main DCP- Discharge Planning Updated by [id number]: Romy Main on 08/25/19 2:[address] CM attempted to complete discharge planning assessment. Patient is currently on vent and sedated. No family available. CM attempted to call lisseth Willingham [phone] but didn't get an answer. CM will continue to follow and assist as needed with discharge planning / needs. CM received a call from [facility] that the patient was under their care. They plan to resume care with him upon discharge. DCPIA - Discharge Planning Initial Assessment Updated by [email or web address]: Romy Main on 08/27/19 6:31 pm * Is the patient Alert and Oriented? No * How many steps to enter\exit or inside your home? * PCP JASMIN JHA * Pharmacy [facility] * Preadmission Environment Home Alone * ADLs Independent * Other Equipment HOME/ PORTABLE 02, NEBULIZER * List name and contact numbers for known caregivers / representatives who currently or will assist patient after discharge: BRETT JONES - [phone] SANDRO BAINS - [phone] * Verbal permission to speak to the caregivers and representatives has been obtained from the patient. N/A * Community resources currently utilized Home Health * Please name any agencies selected above. [facility] * Additional services required to return to the preadmission environment? No * Can the patient safely return to the preadmission environment? Yes * Has this patient been hospitalized within the prior 30 days at any hospital? No Coverage Notice Reviewer: [id number] Ramsey Main Notice Issued Date-Time: 08/27/2019 18:24 Notice Type: Patient Choice Letter Notice Delivered To: Family Member Relationship to Patient: Nephew Clinical Researcher Name: Brett Willingham Delivery Method: HAND - Hand Delivered Lisa Days: Prior Verbal Notification: Recipient Understood Notice: Yes Recipient Signature: Yes Med Rec Note Co-signed by Attending: Coverage Notice Comment: [facility] Reviewer: [id number] Ramsey Main Notice Issued Date-Time: 09/23/2019 11:27 Notice Type: Patient Choice Letter Notice Delivered To: Family Member Relationship to Patient: Son Clinical Researcher Name: SANDRO WILLINGHAM Delivery Method: PHONE - Phone Lisa Days: Prior Verbal Notification: Recipient Understood Notice: Yes Recipient Signature: Yes Med Rec Note Co-signed by Attending: Coverage Notice Comment: [facility] Last DP export: 09/23/19 12:56 pm Patient Name: PAOLO WILLINGHAM Page 44446 at 2043 All edits/amendments must be made on the electronic document DICTATION DATE: 09/23/192041 LATCHER: DOUG 09/23/192041 RPT#: [id number] DC DATE: STATUS: ADM IN [facility] [address] [place] [address] END OF REPORT
--- NOTE | 2019-09-23 20:50 | MORECARE ---
CASE MANAGEMENT DISCHARGE SUMMARY PATIENT: PAOLO WILLINGHAM UNIT: [id number] ADM DATE: 08/24/19 AGE: 83 : 37 SEX: M ROOM/BED: D.2304 AUTHOR: JON,DOC PHYSICIAN: REFERRING PHYSICIAN: SHILO HERNANDEZ MD DATE OF SERVICE: 09/23/19 Discharge Plan Patient Name: PAOLO WILLINGHAM Facility: [facility]:[place] : 1935 Planned Disposition: Home with Home Health Anticipated Discharge Date: Discharge Date: Expected LOS: Initial Reviewer: [email or web address] Initial Review Date: 08/24/2019 Generated: 09/23/19 9:49 pm Comments DCP- Discharge Planning Updated by [email or web address]: Romy Main on 09/23/19 7:[address] Nursing called and spoke with Brett this am on making a decision on LTACH. CM received a call back from patient's son Sandro that they would like for patient to go to LTACH @ [facility] in or [facility]. DEBBIE completed. CM faxed records to [facility] awaiting decision / auth from insurance. CM will continue to follow and assist as needed with discharge planning / needs. DCP- Discharge Planning Updated by [email or web address]: Romy Main on 09/23/19 8:[address] CM called and spoke with Brett again yesterday regarding LTACH placement. He stated they are still looking at facilities. HE STATED THIS IS GOING TO TAKE A LITTLE TIME. CM stated that we need to know [facility]. CM will continue to follow and assist as needed with discharge planning / needs. DCP- Discharge Planning Updated by [id number]: Romy Main on 09/21/19 7:[address] CM spoke with Brett Willingham patient's nephew regarding LTACH placement. CM gave him names and numbers of facilities within the state. Brett stated he would research facilities and get back in touch with CM with decision. CM will continue to follow and assist as needed with discharge planning needs. DCP- Discharge Planning Updated by [email or web address]: Romy Main on 09/18/19 6:[address] CM called to speak to son Sandro Willingham to discuss LTACH options. Sandro stated that he would call back tomorrow he wanted to speak to his cousin Brett. CM will continue to follow and assist as needed with discharge planning / needs. DCP- Discharge Planning Updated by [email or web address]: Romy Main on 08/27/19 5:[address] Patient Name: PAOLO WILLINGHAM Admission Status: ER Accout number: [id number] Admission Date: 08-24-2019 : 1935 Admission Diagnosis:SEPSIS, UNSPECIFIED ORGANISM Attending: SHILO HERNANDEZ Current LOS: 3 Anticipated DC Date: Planned Disposition: Home with Home Health Primary Insurance: [facility] MEDICARE SOLUTIONS Discharge Planning Comments: CM met with patient and lisseth Wright to complete initial dc planning assessment. CM educated patient on the CM role and verbal consent given by patient to complete assessment. CM verified patient's address, phone number, and emergency contact phone numbers. Patient lives at home independently. Patient live in small apartment on Brett's property. CM discussed availability of home health, rehab services, and medical equipment. Patient has home health with [facility] and plans to resume upon discharge. DEBBIE signed. Patient has home / portable 02and nebulizer with unknown provider. Brett is concerned that patient may require more care that HH can provide upon discharge. CM explained that we will re-evaluate closer to discharge. CM will continue to follow and will assist as needed with dc plans/needs. Real Estate Officer: Romy Main DCP- Discharge Planning Updated by [email or web address]: Romy Main on 08/25/19 2:[address] CM attempted to complete discharge planning assessment. Patient is currently on vent and sedated. No family available. CM attempted to call lisseth Willingham [phone] but didn't get an answer. CM will continue to follow and assist as needed with discharge planning / needs. CM received a call from [facility] that the patient was under their care. They plan to resume care with him upon discharge. DCPIA - Discharge Planning Initial Assessment Updated by [id number]: Romy Main on 08/27/19 6:31 pm * Is the patient Alert and Oriented? No * How many steps to enter\exit or inside your home? * PCP JASMIN JHA * [facility] * Preadmission Environment Home Alone * ADLs Independent * Other Equipment HOME/ PORTABLE 02, NEBULIZER * List name and contact numbers for known caregivers / representatives who currently or will assist patient after discharge: BRETT Mustafa NEPHEW - [phone] SANDRO Mustafa SON - [phone] * Verbal permission to speak to the caregivers and representatives has been obtained from the patient. N/A * Community resources currently utilized Home Health * Please name any agencies selected above. [facility] * Additional services required to return to the preadmission environment? No * Can the patient safely return to the preadmission environment? Yes * Has this patient been hospitalized within the prior 30 days at any hospital? No Coverage Notice Reviewer: [id number] Ramsey Main Notice Issued Date-Time: 08/27/2019 18:24 Notice Type: Patient Choice Letter Notice Delivered To: Family Member Relationship to Patient: Nephew Addiction Nurse Name: Brett Willingham Delivery Method: HAND - Hand Delivered Lisa Days: Prior Verbal Notification: Recipient Understood Notice: Yes Recipient Signature: Yes Med Rec Note Co-signed by Attending: Coverage Notice Comment: Resume [facility] Reviewer: [id number] Ramsey Main Notice Issued Date-Time: 09/23/2019 11:27 Notice Type: Patient Choice Letter Notice Delivered To: Family Member Relationship to Patient: Son Addiction Nurse Name: SANDRO WILLINGHAM Delivery Method: PHONE - Phone Lisa Days: Prior Verbal Notification: Recipient Understood Notice: Yes Recipient Signature: Yes Med Rec Note Co-signed by Attending: Coverage Notice Comment: [facility] Last DP export: 09/23/19 7:43 pm Patient Name: PAOLO WILLINGHAM Page [id number] at 2050 All edits/amendments must be made on the electronic document DICTATION DATE: 09/23/192048 DIRECTOR OF INSTRUCTION: DOUG 09/23/192048 RPT#: [id number] DC DATE: STATUS: ADM IN [facility] [address] [place] [address] END OF REPORT
--- NOTE | 2019-09-23 21:30 | NUR ---
SBP > 170 NOTED. HYDRALAZINE 10MG IVP GIVEN PER ORDER. CONT TO MONITOR.
--- NOTE | 2019-09-23 23:00 | NUR ---
REASSESSMENT COMPLETED. SEE FLOWSHEETS FOR ALL FINDINGS. NO ACUTE CHANGES NOTED IN PTS STATUS. VSS. CPOC.
[2019-09-24] VITALS (24 sets, daily range): BP systolic 104–161; BP diastolic 60–91
--- NOTE | 2019-09-24 01:00 | NUR ---
PT RESTING QUIETLY ON VENT, VSS.
--- NOTE | 2019-09-24 03:00 | NUR ---
PT INCONINENT OF LOOSE STOOL. BIBI AND MAHAN CARE DONE. SKIN CARE PROVIDED. REPOSITIONED FOR COMFORT. PT MICHAEL WELL. VSS. REASSESSMENT COMPLETED. CPOC.
[2019-09-24 05:26] LABS: HEMATOCRIT 25.6 % (42.0-54.0); HEMOGLOBIN 8.2 g/dL (13.5-17.5); MCV 93.8 fL (80.0-100.0); MEAN PLATELET VOLUME 10.4 fL (7.4-10.4); RBC 2.73 10x6/uL (4.20-6.10); RDW 14.2 % (11.5-14.5); WBC 3.8 10x3/uL (4.8-10.8)
[2019-09-24 05:42] LABS: PLATELET COUNT 261 10x3/uL (130-400)
[2019-09-24 05:47] LABS: ANION GAP 7.5 mmol/L (8-16); BILIRUBIN - TOTAL 0.42 mg/dL (0.2-1.3); CALCIUM 7.7 mg/dL (8.5-10.1); CARBON DIOXIDE 26.3 mmol/L (21.0-32.0); CREATININE - SERUM 1.2 mg/dL (0.6-1.3); POTASSIUM - SERUM 3.8 mmol/L (3.5-5.1); PROTEIN - SERUM 4.1 g/dL (6.4-8.2)
--- NOTE | 2019-09-24 08:47 | NUR ---
0700 BEDSIDE REPORT RECEIVED FROM [facility] REPOSITIONED PATIENT AND PULLED UP IN BED PT HAD SMALL LIQUID BOWEL MOVEMENT LINENS CHANGED SUCTIONED EET TO TRACH
[2019-09-24 10:25] LABS: EOSINOPHILS 8 % (0-7); LYMPHOCYTES 14 % (15-50); MONOCYTES 19 % (2-11); NEUTROPHILS 58 % (40-80); PLATELET ESTIMATE NORMAL
[2019-09-24 10:26] LABS: ROULEAUX OCC
--- NOTE | 2019-09-24 10:38 | MORECARE ---
CASE MANAGEMENT DISCHARGE SUMMARY PATIENT: PAOLO WILLINGHAM UNIT: [id number] ADM DATE: 08/24/19 AGE: 83 : 37 SEX: M ROOM/BED: D.2304 AUTHOR: JON,DOC PHYSICIAN: REFERRING PHYSICIAN: SHILO HERNANDEZ MD DATE OF SERVICE: 09/24/19 Discharge Plan Patient Name: PAOLO WILLINGHAM Facility: [facility]:[place] : 1935 Planned Disposition: Home with Home Health Anticipated Discharge Date: Discharge Date: Expected LOS: Initial Reviewer: [email or web address] Initial Review Date: 08/24/2019 Generated: 09/24/19 11:37 am DCP- Discharge Planning Updated by [id number]: Romy Main on 09/24/19 9:[address] CM spoke with [facility] [phone] regarding referral sent yesterday. [facility] stated that they are awaiting a bed that they are suppose to have some discharges today and would possibly be able to take him tomorrow Saturday09/25/19. CM will continue to follow and assist as needed with discharge planning / needs. DCP- Discharge Planning Updated by [id number]: Romy Main on 09/23/19 7:[address] Nursing called and spoke with Brett this am on making a decision on LTACH. CM received a call back from patient's son Sandro that they would like for patient to go to LT[facility] @ [facility] in or [facility]. DEBBIE completed. [facility]. CM will continue to follow and assist as needed with discharge planning / needs. DCP- Discharge Planning Updated by [email or web address]: Romy Main on 09/23/19 8:[address] CM called and spoke with Brett again yesterday regarding LTACH placement. He stated they are still looking at facilities. HE STATED THIS IS GOING TO TAKE A LITTLE TIME. CM stated that we need to know [facility]. CM will continue to follow and assist as needed with discharge planning / needs. DCP- Discharge Planning Updated by [id number]: Romy Main on 09/21/19 7:[address] CM spoke with Brett Willingham patient's nephew regarding LTACH placement. CM gave him names and numbers of facilities within the state. Brett stated he would research facilities and get back in touch with CM with decision. CM will continue to follow and assist as needed with discharge planning needs. DCP- Discharge Planning Updated by [id number]: Romy Main on 09/18/19 6:[address] CM called to speak to son Sandro Willingham to discuss LTACH options. Sandro stated that he would call back tomorrow he wanted to speak to his cousin Brett. CM will continue to follow and assist as needed with discharge planning / needs. DCP- Discharge Planning Updated by [id number]: Romy Main on 08/27/19 5:[address] Patient Name: PAOLO WILLINGHAM Admission Status: ER Accout number: [id number] Admission Date: 08-24-2019 : 1935 Admission Diagnosis:SEPSIS, UNSPECIFIED ORGANISM Attending: SHILO HERNANDEZ Current LOS: 3 Anticipated DC Date: Planned Disposition: Home with Home Health Primary Insurance: [facility] [employer] Discharge Planning Comments: CM met with patient and nephew Brett Wright to complete initial dc planning assessment. CM educated patient on the CM role and verbal consent given by patient to complete assessment. CM verified patient's address, phone number, and emergency contact phone numbers. Patient lives at home independently. Patient live in small apartment on Brett's property. CM discussed availability of home health, rehab services, and medical equipment. Patient has home health with [facility] and plans to resume upon discharge. DEBBIE signed. Patient has home / portable 02and nebulizer with unknown provider. Brett is concerned that patient may require more care that HH can provide upon discharge. CM explained that we will re-evaluate closer to discharge. CM will continue to follow and will assist as needed with dc plans/needs. Pony Roll Finisher: Romy Main DCP- Discharge Planning Updated by [id number]: Romy Main on 08/25/19 2:[address] CM attempted to complete discharge planning assessment. Patient is currently on vent and sedated. No family available. CM attempted to call nephjoão Willingham [phone] but didn't get an answer. CM will continue to follow and assist as needed with discharge planning / needs. CM received a call from [facility] that the patient was under their care. They plan to resume care with him upon discharge. DCPIA - Discharge Planning Initial Assessment Updated by [email or web address]: Romy Main on 08/27/19 6:31 pm * Is the patient Alert and Oriented? No * How many steps to enter\exit or inside your home? * PCP JASMIN JHA * [facility] * Preadmission Environment Home Alone * ADLs Independent * Other Equipment HOME/ PORTABLE 02, NEBULIZER * List name and contact numbers for known caregivers / representatives who currently or will assist patient after discharge: BRETT WILLINGHAM - NEPHEW - [phone] SANDRO WILLINGHAM - SON - [phone] * Verbal permission to speak to the caregivers and representatives has been obtained from the patient. N/A * Community resources currently utilized Home Health * Please name any agencies selected above. [facility] * Additional services required to return to the preadmission environment? No * Can the patient safely return to the preadmission environment? Yes * Has this patient been hospitalized within the prior 30 days at any hospital? No Coverage Notice Reviewer: [id number] Ramsey Main Notice Issued Date-Time: 08/27/2019 18:24 Notice Type: Patient Choice Letter Notice Delivered To: Family Member Relationship to Patient: Nephew Vp Genetic Name: Brett Willingham Delivery Method: HAND - Hand Delivered Lisa Days: Prior Verbal Notification: Recipient Understood Notice: Yes Recipient Signature: Yes Med Rec Note Co-signed by Attending: Coverage Notice Comment: [facility] Reviewer: [id number] Ramsey Main Notice Issued Date-Time: 09/23/2019 11:27 Notice Type: Patient Choice Letter Notice Delivered To: Family Member Relationship to Patient: Son Vp Genetic Name: SANDRO WILLINGHAM Delivery Method: PHONE - Phone Lisa Days: Prior Verbal Notification: Recipient Understood Notice: Yes Recipient Signature: Yes Med Rec Note Co-signed by Attending: Coverage Notice Comment: [facility] [place] DP export: 09/23/19 7:50 pm Patient Name: PAOLO WILLINGHAM Page 32427 at 1038 All edits/amendments must be made on the electronic document DICTATION DATE: 09/24/19 1037 XM1 TANK DRIVER: DOUG 09/24/19 1037 RPT#: [id number] DC DATE: STATUS: ADM IN [facility] [address] [place] [address] END OF REPORT
--- NOTE | 2019-09-24 10:38 | NUR ---
0900 REPOSITIONED IN BED USING PILLOW SUPPORT
--- NOTE | 2019-09-24 10:39 | NUR ---
1035 STOPPED D5 1/2 NS GAVE LASIX 20MG IV ORDERED
--- NOTE | 2019-09-24 10:41 | NUR ---
1040 LARGE LIQUID BM NOTED
--- NOTE | 2019-09-24 14:13 | NUR ---
8465 CALLED PHARMACY ASKING IF THEY WANTED ME TO GIVE THE SCHEDULED VANCOMYCIN 1 GRAM OR HOLD IT ISMAEL VANCO TROUGH THIS AM WAS 20.4 PHARMACISR STATED SHE WILL LOOK INTO IT AND CALL ME BACK
--- NOTE | 2019-09-24 14:15 | NUR ---
1413 PHARMACIST CALLED ME BACK AND STATED TO GIVE THE SCHEDULED VANCOMYCIN 1 GRAM NOW
--- NOTE | 2019-09-24 19:00 | NUR ---
SHIFT ASSESSMENT COMPLETED. PT CARE ASSUMED. MONITORS ON AND WORKING, VITALS STABLE. TRACH SECURED. VENT SETTINGS NOTED. SEE FLOW SHEET FOR FURTHER DETAILS. WILL CONTINUE TO OBSERVE.
--- NOTE | 2019-09-24 23:00 | NUR ---
PT TURNED AND REPOSITIONED FOR COMFORT, MONITORS ON AND WORKING, VITALS STABLE, SEE FLOW SHEET FOR FURTHER DETAILS. ORAL CARE DONE AT THIS TIME WELL.
[2019-09-25] VITALS (24 sets, daily range): BP systolic 128–186; BP diastolic 70–101
--- NOTE | 2019-09-25 03:00 | NUR ---
CHG AND LINEN CHANGE COMPLETED, ORAL CARE DONE. PT TURNED AND REPOSITIONED Q2H AND PRN, MONITORS ON AND WORKING, VITALS STABLE. SEE FLOW SHEET FOR FURTHER DETAILS. WILL CONTINUE TO OBSERVE.
--- NOTE | 2019-09-25 07:20 | NUR ---
REPORT RECIEVED, SHIFT ASSESSMENT COMPLETE, PT AWAKE ON THE VENT, ON 50% FIO2 WITH 97% O2 SAT. ALL PPP, VSS, WILL CON'T TO MONITOR
--- NOTE | 2019-09-25 09:00 | NUR ---
DR. TONEY AT BEDSIDE, UPDATE GIVEN
--- NOTE | 2019-09-25 11:00 | NUR ---
REASSESSMENT COMPLETE, NO CHANGES NOTED, WILL CON'T TO MONITOR
--- NOTE | 2019-09-25 11:22 | NUR ---
Nutrition Follow-up: Pt receiving Pulmocare @ 40 this AM. Add protein to TF per Dr. Rothman. Diet: Pulmocare - goal rate 60 mL/hr Wt: 285# (09/23); 285.4# (09/20); 238# (admit) Last BM: 09/24 Labs noted: Glu 131, Ca 7.7, Alb 1.0 Meds noted: Nystatin -Rec increase Pulmocare to goal rate of 60 mL/hr as tolerated. -+Proteinex 30 mL BID via PEG. -Monitor wt. -RD following.
--- NOTE | 2019-09-25 13:00 | NUR ---
REPOSITIONED FOR COMFORT, ORAL CARE PROVIDED
--- NOTE | 2019-09-25 13:16 | MORECARE ---
CASE MANAGEMENT DISCHARGE SUMMARY PATIENT: PAOLO WILLINGHAM UNIT: [id number] ADM DATE: 08/24/19 AGE: 83 : 37 SEX: M ROOM/BED: D.2304 AUTHOR: JON,DOC PHYSICIAN: REFERRING PHYSICIAN: SHILO HERNANDEZ MD DATE OF SERVICE: 09/25/19 Discharge Plan Patient Name: PAOLO WILLINGHAM Facility: [facility]:[place] : 1935 Planned Disposition: Home with Home Health Anticipated Discharge Date: Discharge Date: Expected LOS: Initial Reviewer: [id number] Initial Review Date: 08/24/2019 Generated: 09/25/19 2:16 pm DCP- Discharge Planning Updated by [email or web address]: Romy Main on 09/24/19 9:[address] CM spoke with [facility] [phone] regarding referral sent yesterday. [facility] stated that they are awaiting a bed that they are suppose to have some discharges today and would possibly be able to take him tomorrow Saturday09/25/19. CM will continue to follow and assist as needed with discharge planning / needs. DCP- Discharge Planning Updated by [id number]: Romy Main on 09/23/19 7:[address] Nursing called and spoke with Brett this am on making a decision on LTACH. CM received a call back from patient's son Sandro that they would like for patient to go to LTACH @ [facility] in or [facility]. DEBBIE completed. CM faxed records to [facility] awaiting decision / auth from insurance. CM will continue to follow and assist as needed with discharge planning / needs. DCP- Discharge Planning Updated by [email or web address]: Romy Main on 09/23/19 8:[address] CM called and spoke with Brett again yesterday regarding LTACH placement. He stated they are still looking at facilities. HE STATED THIS IS GOING TO TAKE A LITTLE TIME. CM stated that we need to know [facility]. CM will continue to follow and assist as needed with discharge planning / needs. DCP- Discharge Planning Updated by [id number]: Romy Main on 09/21/19 7:[address] CM spoke with Brett Willingham patient's nephew regarding LTACH placement. CM gave him names and numbers of facilities within the state. Brett stated he would research facilities and get back in touch with CM with decision. CM will continue to follow and assist as needed with discharge planning needs. DCP- Discharge Planning Updated by [id number]: Romy Main on 09/18/19 6:[address] CM called to speak to son Sandro Willingham to discuss LTACH options. Sandro stated that he would call back tomorrow he wanted to speak to his cousin Brett. CM will continue to follow and assist as needed with discharge planning / needs. DCP- Discharge Planning Updated by [id number]: Romy Main on 08/27/19 5:[address] Patient Name: PAOLO WILLINGHAM Admission Status: ER Accout number: [id number] Admission Date: 08-24-2019 : 1935 Admission Diagnosis:SEPSIS, UNSPECIFIED ORGANISM Attending: SHILO HERNANDEZ Current LOS: 3 Anticipated DC Date: Planned Disposition: Home with Home Health Primary Insurance: [facility] MEDIC[employer] SOLUTIONS Discharge Planning Comments: CM met with patient and nephew Brett Wright to complete initial dc planning assessment. CM educated patient on the CM role and verbal consent given by patient to complete assessment. CM verified patient's address, phone number, and emergency contact phone numbers. Patient lives at home independently. Patient live in small apartment on Brett's property. CM discussed availability of home health, rehab services, and medical equipment. Patient has home health with [facility] and plans to resume upon discharge. DEBBIE signed. Patient has home / portable 02and nebulizer with unknown provider. Brett is concerned that patient may require more care that HH can provide upon discharge. CM explained that we will re-evaluate closer to discharge. CM will continue to follow and will assist as needed with dc plans/needs. Pit Recorder: Romy Main DCP- Discharge Planning Updated by [id number]: Romy Main on 08/25/19 2:[address] CM attempted to complete discharge planning assessment. Patient is currently on vent and sedated. No family available. CM attempted to call nephjoão Willingham [phone] but didn't get an answer. CM will continue to follow and assist as needed with discharge planning / needs. CM received a call from [facility] that the patient was under their care. They plan to resume care with him upon discharge. DCPIA - Discharge Planning Initial Assessment Updated by [id number]: Romy Main on 08/27/19 6:31 pm * Is the patient Alert and Oriented? No * How many steps to enter\exit or inside your home? * PCP JASMIN JHA * [facility] * Preadmission Environment Home Alone * ADLs Independent * Other Equipment HOME/ PORTABLE 02, NEBULIZER * List name and contact numbers for known caregivers / representatives who currently or will assist patient after discharge: BRETT Mustafa NEPHEW - [phone] SANDRO WILLINGHAM - SON - [phone] * Verbal permission to speak to the caregivers and representatives has been obtained from the patient. N/A * Community resources currently utilized Home Health * Please name any agencies selected above. [facility] * Additional services required to return to the preadmission environment? No * Can the patient safely return to the preadmission environment? Yes * Has this patient been hospitalized within the prior 30 days at any hospital? No External Providers External Provider: [facility] Next Contact Date: Service Request Date: Service Type: Resolution: Reviewer: Comments: Coverage Notice Reviewer: [id number] Ramsey Main Notice Issued Date-Time: 08/27/2019 18:24 Notice Type: Patient Choice Letter Notice Delivered To: Family Member Relationship to Patient: Nephew Shaper Setter Name: Brett Willingham Delivery Method: HAND - Hand Delivered Lisa Days: Prior Verbal Notification: Recipient Understood Notice: Yes Recipient Signature: Yes Med Rec Note Co-signed by Attending: Coverage Notice Comment: [facility] Reviewer: [id number] Ramsey Main Notice Issued Date-Time: 09/23/2019 11:27 Notice Type: Patient Choice Letter Notice Delivered To: Family Member Relationship to Patient: Son Shaper Setter Name: SANDRO WILLINGHAM Delivery Method: PHONE - Phone Lisa Days: Prior Verbal Notification: Recipient Understood Notice: Yes Recipient Signature: Yes Med Rec Note Co-signed by Attending: Coverage Notice Comment: [facility] Last DP export: 09/24/19 9:38 am Patient Name: PAOLO WILLINGHAM Page 75221 at 1316 All edits/amendments must be made on the electronic document DICTATION DATE: 09/25/191315 SAWMILL PRODUCTION WORKER: DOUG 09/25/191315 RPT#: [id number] DC DATE: STATUS: ADM IN [facility] [address] [place] [address] END OF REPORT
--- NOTE | 2019-09-25 13:31 | MORECARE ---
CASE MANAGEMENT DISCHARGE SUMMARY PATIENT: PAOLO WILLINGHAM UNIT: [id number] ADM DATE: 08/24/19 AGE: 83 : 37 SEX: M ROOM/BED: D.2304 AUTHOR: JON,DOC PHYSICIAN: REFERRING PHYSICIAN: SHILO HERNANDEZ MD DATE OF SERVICE: 09/25/19 Discharge Plan Patient Name: PAOLO WILLINGHAM Facility: [facility]:[place] : 1935 Planned Disposition: Home with Home Health Anticipated Discharge Date: Discharge Date: Expected LOS: Initial Reviewer: [id number] Initial Review Date: 08/24/2019 Generated: 09/25/19 2:30 pm Comments DCP- Discharge Planning Updated by [id number]: Kera Nolan on 09/25/19 12:[address] Patient Name: PAOLO WILLINGHAM Encounter No: [id number] : 1935 Primary Insurance: [facility] MEDICARE SOLUTIONS Anticipated DC Date: Planned Disposition: Home with Home Health External Planned Provider: : DCP follow-up note: 09/24/2019 CM spoke with [facility] [phone] regarding referral sent yesterday. [facility] stated that they are awaiting a bed that they are suppose to have some discharges today and would possibly be able to take him tomorrow Saturday09/25/19. CM will continue to follow and assist as needed with discharge planning / needs. THEO HURST,CM 09/25/2019@ 1230- CM CALLED [facility] FOR UPDATE. SPOKE WITH ARTUR AT [phone] WHO STATED THEY HAVE NO AVAILABEL BEDS, AND ARE NOT EXPECTING TO HAVE ANY OPENED BEDS FOR NEXT WEEK. CALLED THE TRANSFER SERVICE AT AND SPOKE WITH THELMA. SHE STATED SHE WOULD ASSIST THE TRANSFER. CM ASSISTED WITH COVID SCREENING. FAXED CLINICALS TO [phone]. CM WILL CONTINUE TO FOLLOW AND ASSIST NEDED. Kera Nolan MSN,RN,CM DCP- Discharge Planning Updated by [id number]: Romy Main on 09/24/19 9:[address] CM spoke with [facility] [phone] regarding referral sent yesterday. [facility] stated that they are awaiting a bed that they are suppose to have some discharges today and would possibly be able to take him tomorrow Saturday09/25/19. CM will continue to follow and assist as needed with discharge planning / needs. DCP- Discharge Planning Updated by [id number]: Romy Main on 09/23/19 7:[address] Nursing called and spoke with Brett this am on making a decision on LTACH. CM received a call back from patient's son Sandro that they would like for patient to go to [facility] @ [facility] [place] [facility]. DEBBIE completed. CM faxed records to [facility] LT[facility] awaiting decision / auth from insurance. CM will continue to follow and assist as needed with discharge planning / needs. DCP- Discharge Planning Updated by [id number]: Romy Main on 09/23/19 8:[address] CM called and spoke with Brett again yesterday regarding LTACH placement. He stated they are still looking at facilities. HE STATED THIS IS GOING TO TAKE A LITTLE TIME. CM stated that we need to know [facility]. CM will continue to follow and assist as needed with discharge planning / needs. DCP- Discharge Planning Updated by [id number]: Romy Main on 09/21/19 7:[address] CM spoke with Brett Willingham patient's nephew regarding LTACH placement. CM gave him names and numbers of facilities within the state. Brett stated he would research facilities and get back in touch with CM with decision. CM will continue to follow and assist as needed with discharge planning needs. DCP- Discharge Planning Updated by [id number]: Romy Main on 09/18/19 6:[address] CM called to speak to son Sandro Willingham to discuss LTACH options. Sandro stated that he would call back tomorrow he wanted to speak to his cousin Brett. CM will continue to follow and assist as needed with discharge planning / needs. DCP- Discharge Planning Updated by [email or web address]: Romy Main on 08/27/19 5:[address] Patient Name: PAOLO WILLINGHAM Admission Status: ER Accout number: [id number] Admission Date: 08-24-2019 : 1935 Admission Diagnosis:SEPSIS, UNSPECIFIED ORGANISM Attending: SHILO HERNANDEZ Current LOS: 3 Anticipated DC Date: Planned Disposition: Home with Home Health Primary Insurance: [facility] MEDICARE SOLUTIONS Discharge Planning Comments: CM met with patient and nephjoão Wright to complete initial dc planning assessment. CM educated patient on the CM role and verbal consent given by patient to complete assessment. CM verified patient's address, phone number, and emergency contact phone numbers. Patient lives at home independently. Patient live in small apartment on Brett's property. CM discussed availability of home health, rehab services, and medical equipment. Patient has home health with [facility] and plans to resume upon discharge. DEBBIE signed. Patient has home / portable 02and nebulizer with unknown provider. Brett is concerned that patient may require more care that HH can provide upon discharge. CM explained that we will re-evaluate closer to discharge. CM will continue to follow and will assist as needed with dc plans/needs. Ice House Supervisor: Romy Main DCP- Discharge Planning Updated by [id number]: Romy Main on 08/25/19 2:[address] CM attempted to complete discharge planning assessment. Patient is currently on vent and sedated. No family available. CM attempted to call lisseth Willingham [phone] but didn't get an answer. CM will continue to follow and assist as needed with discharge planning / needs. CM received a call from [facility] that the patient was under their care. They plan to resume care with him upon discharge. DCPIA - Discharge Planning Initial Assessment Updated by [id number]: Romy Main on 08/27/19 6:31 pm * Is the patient Alert and Oriented? No * How many steps to enter\exit or inside your home? * PCP JASMIN JHA * Pharmacy [facility] * Preadmission Environment Home Alone * ADLs Independent * Other Equipment HOME/ PORTABLE 02, NEBULIZER * List name and contact numbers for known caregivers / representatives who currently or will assist patient after discharge: BRETT JONES - [phone] SANDRO BAINS - [phone] * Verbal permission to speak to the caregivers and representatives has been obtained from the patient. N/A * Community resources currently utilized Home Health * Please name any agencies selected above. [facility] * Additional services required to return to the preadmission environment? No * Can the patient safely return to the preadmission environment? Yes * Has this patient been hospitalized within the prior 30 days at any hospital? No Coverage Notice Reviewer: [id number] Ramsey Main Notice Issued Date-Time: 08/27/2019 18:24 Notice Type: Patient Choice Letter Notice Delivered To: Family Member Relationship to Patient: Nephew Field Applications Specialist Name: Brett Willingham Delivery Method: HAND - Hand Delivered Lisa Days: Prior Verbal Notification: Recipient Understood Notice: Yes Recipient Signature: Yes Med Rec Note Co-signed by Attending: Coverage Notice Comment: [facility] Reviewer: [id number] Ramsey Main Notice Issued Date-Time: 09/23/2019 11:27 Notice Type: Patient Choice Letter Notice Delivered To: Family Member Relationship to Patient: Son Field Applications Specialist Name: SANDRO WILLINGHAM Delivery Method: PHONE - Phone Lisa Days: Prior Verbal Notification: Recipient Understood Notice: Yes Recipient Signature: Yes Med Rec Note Co-signed by Attending: Coverage Notice Comment: [facility] Last DP export: 09/25/19 12:16 p Patient Name: PAOLO WILLINGHAM Page 13793 at 1331 All edits/amendments must be made on the electronic document DICTATION DATE: 09/25/19 1330 INBOUND SALES ADVISOR: DOUG 09/25/19 1330 RPT#: [id number] DC DATE: STATUS: ADM IN [facility] [address] [place] [address] END OF REPORT
--- NOTE | 2019-09-25 13:58 | MORECARE ---
CASE MANAGEMENT DISCHARGE SUMMARY PATIENT: PAOLO WILLINGHAM UNIT: [id number] ADM DATE: 08/24/19 AGE: 83 : 37 SEX: M ROOM/BED: D.2304 AUTHOR: JON,DOC PHYSICIAN: REFERRING PHYSICIAN: SHILO HERNANDEZ MD DATE OF SERVICE: 09/25/19 Discharge Plan Patient Name: PAOLO WILLINGHAM Facility: [facility]:[place] : 1935 Planned Disposition: Home with Home Health Anticipated Discharge Date: Discharge Date: Expected LOS: Initial Reviewer: [email or web address] Initial Review Date: 08/24/2019 Generated: 09/25/19 2:58 pm Comments DCP- Discharge Planning Updated by [email or web address]: Kera Nolan on 09/25/19 12:[address] Patient Name: PAOLO WILLINGHAM Encounter No: [id number] : 1935 Primary Insurance: [facility] [employer] Anticipated DC Date: Planned Disposition: Home with Home Health External Planned Provider: : DCP follow-up note: 09/24/2019 CM spoke with [facility] [phone] regarding referral sent yesterday. [facility] stated that they are awaiting a bed that they are suppose to have some discharges today and would possibly be able to take him tomorrow Saturday09/25/19. CM will continue to follow and assist as needed with discharge planning / needs. THEO HURST,CM 09/25/2019@ 1230- CM CALLED [facility] FOR UPDATE. SPOKE WITH ARTUR AT [phone] WHO STATED THEY HAVE NO AVAILABEL BEDS, AND ARE NOT EXPECTING TO HAVE ANY OPENED BEDS FOR NEXT WEEK. CALLED THE TRANSFER SERVICE AT AND SPOKE WITH THELMA. SHE STATED SHE WOULD ASSIST THE TRANSFER. CM ASSISTED WITH COVID SCREENING. FAXED CLINICALS TO [phone]. CM WILL CONTINUE TO FOLLOW AND ASSIST NEDED. Kera Nolan MSN,RN,CM DCP- Discharge Planning Updated by [email or web address]: Romy Main on 09/24/19 9:[address] CM spoke with [facility] [phone] regarding referral sent yesterday. [facility] stated that they are awaiting a bed that they are suppose to have some discharges today and would possibly be able to take him tomorrow Saturday09/25/19. CM will continue to follow and assist as needed with discharge planning / needs. DCP- Discharge Planning Updated by [email or web address]: Romy Main on 09/23/19 7:[address] Nursing called and spoke with Brett this am on making a decision on LTACH. CM received a call back from patient's son Sandro that they would like for patient to go [facility] [place] [facility] DEBBIE completed. CM faxed records to [facility] awaiting decision / auth from insurance. CM will continue to follow and assist as needed with discharge planning / needs. DCP- Discharge Planning Updated by [email or web address]: Romy Main on 09/23/19 8:[address] CM called and spoke with Brett again yesterday regarding LTACH placement. He stated they are still looking at facilities. HE STATED THIS IS GOING TO TAKE A LITTLE TIME. CM stated that we need to know [facility]. CM will continue to follow and assist as needed with discharge planning / needs. DCP- Discharge Planning Updated by [id number]: Romy Main on 09/21/19 7:[address] CM spoke with Brett Willingham patient's nephew regarding LTACH placement. CM gave him names and numbers of facilities within the state. Brett stated he would research facilities and get back in touch with CM with decision. CM will continue to follow and assist as needed with discharge planning needs. DCP- Discharge Planning Updated by [email or web address]: Romy Main on 09/18/19 6:[address] CM called to speak to son Sandro Willingham to discuss LTACH options. Sandro stated that he would call back tomorrow he wanted to speak to his cousin Brett. CM will continue to follow and assist as needed with discharge planning / needs. DCP- Discharge Planning Updated by [email or web address]: Romy Main on 08/27/19 5:[address] Patient Name: PAOLO WILLINGHAM Admission Status: ER Accout number: [id number] Admission Date: 08-24-2019 : 1935 Admission Diagnosis:SEPSIS, UNSPECIFIED ORGANISM Attending: SHILO HERNANDEZ Current LOS: 3 Anticipated DC Date: Planned Disposition: Home with Home Health Primary Insurance: [facility] [employer] Discharge Planning Comments: CM met with patient and nephjoão Wright to complete initial dc planning assessment. CM educated patient on the CM role and verbal consent given by patient to complete assessment. CM verified patient's address, phone number, and emergency contact phone numbers. Patient lives at home independently. Patient live in small apartment on Brett's property. CM discussed availability of home health, rehab services, and medical equipment. Patient has home health with [facility] and plans to resume upon discharge. DEBBIE signed. Patient has home / portable 02and nebulizer with unknown provider. Brett is concerned that patient may require more care that HH can provide upon discharge. CM explained that we will re-evaluate closer to discharge. CM will continue to follow and will assist as needed with dc plans/needs. Coal Chute Worker: Romy Main DCP- Discharge Planning Updated by [email or web address]: Romy Main on 08/25/19 2:[address] CM attempted to complete discharge planning assessment. Patient is currently on vent and sedated. No family available. CM attempted to call lisseth Willingham [phone] but didn't get an answer. CM will continue to follow and assist as needed with discharge planning / needs. CM received a call from [facility] that the patient was under their care. They plan to resume care with him upon discharge. DCPIA - Discharge Planning Initial Assessment Updated by [id number]: Romy Main on 08/27/19 6:31 pm * Is the patient Alert and Oriented? No * How many steps to enter\exit or inside your home? * PCP JASMIN JHA * Pharmacy [facility] * Preadmission Environment Home Alone * ADLs Independent * Other Equipment HOME/ PORTABLE 02, NEBULIZER * List name and contact numbers for known caregivers / representatives who currently or will assist patient after discharge: BRETT JONES - [phone] SANDRO BAINS - [phone] * Verbal permission to speak to the caregivers and representatives has been obtained from the patient. N/A * Community resources currently utilized Home Health * Please name any agencies selected above. [facility] * Additional services required to return to the preadmission environment? No * Can the patient safely return to the preadmission environment? Yes * Has this patient been hospitalized within the prior 30 days at any hospital? No External Providers External Provider: [facility] Next Contact Date: Service Request Date: Service Type: Resolution: Reviewer: Comments: Coverage Notice Reviewer: [id number] Ramsey Main Notice Issued Date-Time: 08/27/2019 18:24 Notice Type: Patient Choice Letter Notice Delivered To: Family Member Relationship to Patient: Nephew Industrial Yard Brake Coupler Name: Brett Willingham Delivery Method: HAND - Hand Delivered Lisa Days: Prior Verbal Notification: Recipient Understood Notice: Yes Recipient Signature: Yes Med Rec Note Co-signed by Attending: Coverage Notice Comment: [facility] Reviewer: [email or web address] Ramsey Main Notice Issued Date-Time: 09/23/2019 11:27 Notice Type: Patient Choice Letter Notice Delivered To: Family Member Relationship to Patient: Son Industrial Yard Brake Coupler Name: SANDRO WILLINGHAM Delivery Method: PHONE - Phone Lisa Days: Prior Verbal Notification: Recipient Understood Notice: Yes Recipient Signature: Yes Med Rec Note Co-signed by Attending: Coverage Notice Comment: [facility] Last DP export: 09/25/19 12:31 p Patient Name: PAOLO WILLINGHAM Page [id number] at 1358 All edits/amendments must be made on the electronic document DICTATION DATE: 09/25/19 1358 REALTIME CAPTIONER: DOUG 09/25/19 1358 RPT#: [id number] DC DATE: STATUS: ADM IN [facility] [address] [place] [address] END OF REPORT
--- NOTE | 2019-09-25 15:00 | NUR ---
REASSESSMENT COMPLETE, NO CHANGES NOTED, WILL CON'T TO MONITOR
--- NOTE | 2019-09-25 15:07 | MORECARE ---
CASE MANAGEMENT DISCHARGE SUMMARY PATIENT: PAOLO WILLINGHAM UNIT: [id number] ADM DATE: 08/24/19 AGE: 83 : 37 SEX: M ROOM/BED: D.2304 AUTHOR: JON,DOC PHYSICIAN: REFERRING PHYSICIAN: SHILO HERNANDEZ MD DATE OF SERVICE: 09/25/19 Discharge Plan Patient Name: PAOLO WILLINGHAM Facility: [facility]:[place] : 1935 Planned Disposition: Home with Home Health Anticipated Discharge Date: Discharge Date: Expected LOS: Initial Reviewer: [email or web address] Initial Review Date: 08/24/2019 Generated: 09/25/19 4:07 pm Comments DCP- Discharge Planning Updated by [email or web address]: Kera Nolan on 09/25/19 12:[address] Patient Name: PAOLO WILLINGHAM Encounter No: [id number] : 1935 Primary Insurance: [facility] [employer] Anticipated DC Date: Planned Disposition: Home with Home Health External Planned Provider: : DCP follow-up note: 09/24/2019 CM spoke with [facility] [phone] regarding referral sent yesterday. [facility] stated that they are awaiting a bed that they are suppose to have some discharges today and would possibly be able to take him tomorrow Saturday09/25/19. CM will continue to follow and assist as needed with discharge planning / needs. THEO HURST,CM 09/25/2019@ 1230- CM CALLED [facility] [place] FOR UPDATE. SPOKE WITH ARTUR AT [phone] WHO STATED THEY HAVE NO AVAILABEL BEDS, AND ARE NOT EXPECTING TO HAVE ANY OPENED BEDS FOR NEXT WEEK. CALLED THE TRANSFER SERVICE AT AND SPOKE WITH THELMA. SHE STATED SHE WOULD ASSIST THE TRANSFER. CM ASSISTED WITH COVID SCREENING. FAXED CLINICALS TO [phone]. CM WILL CONTINUE TO FOLLOW AND ASSIST NEDED. Kera Nolan MSN,RN,CM DCP- Discharge Planning Updated by [email or web address]: Romy Main on 09/24/19 9:[address] CM spoke with [facility] [phone] regarding referral sent yesterday. [facility] stated that they are awaiting a bed that they are suppose to have some discharges today and would possibly be able to take him tomorrow Saturday09/25/19. CM will continue to follow and assist as needed with discharge planning / needs. DCP- Discharge Planning Updated by [email or web address]: Romy Main on 09/23/19 7:[address] Nursing called and spoke with Brett this am on making a decision on LTACH. CM received a call back from patient's son Sandro that they would like for patient to go to [facility] [place] [facility]. DEBBIE completed. CM faxed records to [facility] awaiting decision / auth from insurance. CM will continue to follow and assist as needed with discharge planning / needs. DCP- Discharge Planning Updated by [id number]: Romy Main on 09/23/19 8:[address] CM called and spoke with Brett again yesterday regarding LTACH placement. He stated they are still looking at facilities. HE STATED THIS IS GOING TO TAKE A LITTLE TIME. CM stated that we need to know [facility]. CM will continue to follow and assist as needed with discharge planning / needs. DCP- Discharge Planning Updated by [email or web address]: Romy Main on 09/21/19 7:[address] CM spoke with Brett Willingham patient's nephew regarding LTACH placement. CM gave him names and numbers of facilities within the state. Brett stated he would research facilities and get back in touch with CM with decision. CM will continue to follow and assist as needed with discharge planning needs. DCP- Discharge Planning Updated by [email or web address]: Romy Main on 09/18/19 6:[address] CM called to speak to son Sandro Willingham to discuss LTACH options. Sandro stated that he would call back tomorrow he wanted to speak to his cousin Brett. CM will continue to follow and assist as needed with discharge planning / needs. DCP- Discharge Planning Updated by [email or web address]: Romy Main on 08/27/19 5:[address] Patient Name: PAOLO WILLINGHAM Admission Status: ER Accout number: [id number] Admission Date: 08-24-2019 : 1935 Admission Diagnosis:SEPSIS, UNSPECIFIED ORGANISM Attending: SHILO HERNANDEZ Current LOS: 3 Anticipated DC Date: Planned Disposition: Home with Home Health Primary Insurance: [facility] [employer] Discharge Planning Comments: CM met with patient and nephjoão Wright to complete initial dc planning assessment. CM educated patient on the CM role and verbal consent given by patient to complete assessment. CM verified patient's address, phone number, and emergency contact phone numbers. Patient lives at home independently. Patient live in small apartment on Brett's property. CM discussed availability of home health, rehab services, and medical equipment. Patient has home health with [facility] and plans to resume upon discharge. DEBBIE signed. Patient has home / portable 02and nebulizer with unknown provider. [facility] is concerned that patient may require more care that HH can provide upon discharge. CM explained that we will re-evaluate closer to discharge. CM will continue to follow and will assist as needed with dc plans/needs. Title I Instructional Assistant: Romy Main DCP- Discharge Planning Updated by [email or web address]: Romy Main on 08/25/19 2:[address] CM attempted to complete discharge planning assessment. Patient is currently on vent and sedated. No family available. CM attempted to call lisseth Willingham [phone] but didn't get an answer. CM will continue to follow and assist as needed with discharge planning / needs. CM received a call from [facility] that the patient was under their care. They plan to resume care with him upon discharge. DCPIA - Discharge Planning Initial Assessment Updated by [id number]: Romy Main on 08/27/19 6:31 pm * Is the patient Alert and Oriented? No * How many steps to enter\exit or inside your home? * PCP JASMIN JHA * Pharmacy [facility] * Preadmission Environment Home Alone * ADLs Independent * Other Equipment HOME/ PORTABLE 02, NEBULIZER * List name and contact numbers for known caregivers / representatives who currently or will assist patient after discharge: BRETT JONES - [phone] SANDRO BAINS - [phone] * Verbal permission to speak to the caregivers and representatives has been obtained from the patient. N/A * Community resources currently utilized Home Health * Please name any agencies selected above. [facility] * Additional services required to return to the preadmission environment? No * Can the patient safely return to the preadmission environment? Yes * Has this patient been hospitalized within the prior 30 days at any hospital? No External Providers External Provider: [facility] Next Contact Date: Service Request Date: Service Type: Resolution: Reviewer: Comments: Coverage Notice Reviewer: [id number] Ramsey Main Notice Issued Date-Time: 08/27/2019 18:24 Notice Type: Patient Choice Letter Notice Delivered To: Family Member Relationship to Patient: Nephew Combination Window Installer Name: Brett Willingham Delivery Method: HAND - Hand Delivered Lisa Days: Prior Verbal Notification: Recipient Understood Notice: Yes Recipient Signature: Yes Med Rec Note Co-signed by Attending: Coverage Notice Comment: Tanner Tavares Reviewer: [id number] Ramsey Main Notice Issued Date-Time: 09/23/2019 11:27 Notice Type: Patient Choice Letter Notice Delivered To: Family Member Relationship to Patient: Son Combination Window Installer Name: SANDRO WILLINGHAM Delivery Method: PHONE - Phone Lisa Days: Prior Verbal Notification: Recipient Understood Notice: Yes Recipient Signature: Yes Med Rec Note Co-signed by Attending: Coverage Notice Comment: [facility] DP export: 09/25/19 12:58 p Patient Name: PAOLO WILLINGHAM Page 76532 at 1507 All edits/amendments must be made on the electronic document DICTATION DATE: 09/25/19 1507 SPORTS JOURNALIST: DOUG 09/25/19 1507 RPT#: [id number] DC DATE: STATUS: ADM [facility] [address] [place] [address] END OF REPORT
--- NOTE | 2019-09-25 16:00 | MORECARE ---
CASE MANAGEMENT DISCHARGE SUMMARY PATIENT: PAOLO WILLINGHAM UNIT: [id number] ADM DATE: 08/24/19 AGE: 83 : 39 SEX: M ROOM/BED: D.2304 AUTHOR: JON,DOC PHYSICIAN: REFERRING PHYSICIAN: SHILO HERNANDEZ MD DATE OF SERVICE: 09/25/19 Discharge Plan Patient Name: PAOLO WILLINGHAM Facility: [facility]:[place] : 1935 Planned Disposition: Home with Home Health Anticipated Discharge Date: Discharge Date: Expected LOS: Initial Reviewer: [id number] Initial Review Date: 08/24/2019 Generated: 09/25/19 5:00 pm Comments DCP- Discharge Planning Updated by [id number]: Kera Nolan on 09/25/19 2:[address] Patient Name: POALO WILLINGHAM Encounter No: [id number] : 1935 Primary Insurance: [facility] [employer] Anticipated DC Date: Planned Disposition: Home with Home Health External Planned Provider: : DCP follow-up note: 09/24/2019 CM [phone] regarding referral sent yesterday. [facility] stated that they are awaiting a bed that they are suppose to have some discharges today and would possibly be able to take him tomorrow Saturday09/25/19. CM will continue to follow and assist as needed with discharge planning / needs. THEO HURST,CM 09/25/2019@ 1230- CM CALLED [facility] FOR UPDATE. SPOKE WITH ARTUR AT [phone] WHO STATED THEY HAVE NO AVAILABEL BEDS, AND ARE NOT EXPECTING TO HAVE ANY OPENED BEDS FOR NEXT WEEK. CALLED THE TRANSFER SERVICE AT AND SPOKE WITH THELMA. SHE STATED SHE WOULD ASSIST THE TRANSFER. CM ASSISTED WITH COVID SCREENING. FAXED CLINICALS TO [phone]. CM WILL CONTINUE TO FOLLOW AND ASSIST NEDED. Kera Nolan MSN,RN,CM 09/25/2019 1350. CM SPOKE WITH SANDRO ABOUT THE AVAILIBILTY OF OTHER CHOICES FOR LTAC. DEBBIE SIGNED FOR #1 [facility], 2)[facility], 30 ANY AVAILABLE OPEN BED. TRANSFER CENTER STATED THEY ARE HAVIDNG DIFFICULTY GETTING FAXES, AND THERE ARE AVAILABLE BEDS IN [facility], AND [facility]. CALLED [facility] AND SPOKE WITH STEPH AT [phone]. STATED THEY HAD AN AVAILABLE BED. FAXED OVER CLINICALS. WILL AWAIT DC. Patient and family in agreement with discharge plan. Case management will follow and assist as needed. Kera CABALLERO,RN,CM DCP- Discharge Planning Updated by [id number]: Kera Nolan on 09/25/19 12:[address] Patient Name: PAOLO WILLINGHAM Encounter No: [id number] : 1935 Primary Insurance: [facility] [employer] Anticipated DC Date: Planned Disposition: Home with Home Health External Planned Provider: : DCP follow-up note: 09/24/2019 CM spoke with Melia TORRES [phone] regarding referral sent yesterday. [facility] stated that they are awaiting a bed that they are suppose to have some discharges today and would possibly be able to take him tomorrow Saturday09/25/19. CM will continue to follow and assist as needed with discharge planning / needs. THEO HURST,CARSON 09/25/2019@ 1230- CM CALLED [facility] FOR UPDATE. SPOKE WITH ARTUR AT [phone] WHO STATED THEY HAVE NO AVAILABEL BEDS, AND ARE NOT EXPECTING TO HAVE ANY OPENED BEDS FOR NEXT WEEK. CALLED THE TRANSFER SERVICE AT AND SPOKE WITH THELMA. SHE STATED SHE WOULD ASSIST THE TRANSFER. CM ASSISTED WITH COVID SCREENING. FAXED CLINICALS TO [phone]. CM WILL CONTINUE TO FOLLOW AND ASSIST NEDED. Kera CABALLERO,RN,CM DCP- Discharge Planning Updated by [id number]: Romy Main on 09/24/19 9:[address] CM spoke with Melia TORRES [phone] regarding referral sent yesterday. [facility] stated that they are awaiting a bed that they are suppose to have some discharges today and would possibly be able to take him tomorrow Saturday09/25/19. CM will continue to follow and assist as needed with discharge planning / needs. DCP- Discharge Planning Updated by [id number]: Romy Main on 09/23/19 7:[address] Nursing called and spoke with Brett this am on making a decision on LTACH. CM received a call back from patient's son Sandro that they would [facility] DEBBIE completed. CM faxed records to [facility] awaiting decision / auth from insurance. CM will continue to follow and assist as needed with discharge planning / needs. DCP- Discharge Planning Updated by [id number]: Romy Main on 09/23/19 8:[address] CM called and spoke with Brett again yesterday regarding LTACH placement. He stated they are still looking at facilities. HE STATED THIS IS GOING TO TAKE A LITTLE TIME. CM stated that we need to know GENESIS. CM will continue to follow and assist as needed with discharge planning / needs. DCP- Discharge Planning Updated by [id number]: Romy Main on 09/21/19 7:[address] CM spoke with Brett Willingham patient's nephew regarding LTACH placement. CM gave him names and numbers of facilities within the state. Brett stated he would research facilities and get back in touch with CM with decision. CM will continue to follow and assist as needed with discharge planning needs. DCP- Discharge Planning Updated by [id number]: Romy Main on 09/18/19 6:[address] CM called to speak to son Sandro Willingham to discuss LTACH options. Sandro stated that he would call back tomorrow he wanted to speak to his cousin Brett. CM will continue to follow and assist as needed with discharge planning / needs. DCP- Discharge Planning Updated by [id number]: Romy Main on 08/27/19 5:[address] Patient Name: PAOLO WILLINGHAM Admission Status: ER Accout number: [id number] Admission Date: 08-24-2019 : 1935 Admission Diagnosis:SEPSIS, UNSPECIFIED ORGANISM Attending: SHILO HERNANDEZ Current LOS: 3 Anticipated DC Date: Planned Disposition: Home with Home Health Primary Insurance: [facility] [employer] Discharge Planning Comments: CM met with patient and nephew Brett Wright to complete initial dc planning assessment. CM educated patient on the CM role and verbal consent given by patient to complete assessment. CM verified patient's address, phone number, and emergency contact phone numbers. Patient lives at home independently. Patient live in small apartment on Brett's property. CM discussed availability of home health, rehab services, and medical equipment. Patient has home health with [facility] and plans to resume upon discharge. DEBBIE signed. Patient has home / portable 02and nebulizer with unknown provider. Brett is concerned that patient may require more care that HH can provide upon discharge. CM explained that we will re-evaluate closer to discharge. CM will continue to follow and will assist as needed with dc plans/needs. Cookie Breaker: Romy Main DCP- Discharge Planning Updated by [id number] Main on 08/25/19 2:[address] CM attempted to complete discharge planning assessment. Patient is currently on vent and sedated. No family available. CM attempted to call missy Willingham [phone] but didn't get an answer. CM will continue to follow and assist as needed with discharge planning / needs. CM received a call from [facility] that the patient was under their care. They plan to resume care with him upon discharge. DCPIA - Discharge Planning Initial Assessment Updated by [id number]: Romy Main on 08/27/19 6:31 pm * Is the patient Alert and Oriented? No * How many steps to enter\exit or inside your home? * PCP JASMIN JHA * Pharmacy [facility] * Preadmission Environment Home Alone * ADLs Independent * Other Equipment HOME/ PORTABLE 02, NEBULIZER * List name and contact numbers for known caregivers / representatives who currently or will assist patient after discharge: BRETT JONES - [phone] SANDRO BAINS - [phone] * Verbal permission to speak to the caregivers and representatives has been obtained from the patient. N/A * Community resources currently utilized Home Health * Please name any agencies selected above. [facility] * Additional services required to return to the preadmission environment? No * Can the patient safely return to the preadmission environment? Yes * Has this patient been hospitalized within the prior 30 days at any hospital? No Coverage Notice Reviewer: [id number] - Romy Main Notice Issued Date-Time: 08/27/2019 18:24 Notice Type: Patient Choice Letter Notice Delivered To: Family Member Relationship to Patient: Missy Boiler Water Tester Name: Brett Willingham Delivery Method: HAND - Hand Delivered Lisa Days: Prior Verbal Notification: Recipient Understood Notice: Yes Recipient Signature: Yes Med Rec Note Co-signed by Attending: Coverage Notice Comment: Tanner MAJANO Reviewer: [id number] Ramsey Main Notice Issued Date-Time: 09/23/2019 11:27 Notice Type: Patient Choice Letter Notice Delivered To: Family Member Relationship to Patient: Son Boiler Water Tester Name: SANDRO WILLINGHAM Delivery Method: PHONE - Phone Lisa Days: Prior Verbal Notification: Recipient Understood Notice: Yes Recipient Signature: Yes Med Rec Note Co-signed by Attending: Coverage Notice Comment: [facility] Reviewer: [id number] Ramsey Nolan Notice Issued Date-Time: 09/25/2019 13:50 Notice Type: Patient Choice Letter Notice Delivered To: Family Member Relationship to Patient: Child No Finc Resp Boiler Water Tester Name: SANDRO WILLINGHAM Delivery Method: PHONE - Phone Lisa Days: Prior Verbal Notification: Yes Recipient Understood Notice: Yes Recipient Signature: Med Rec Note Co-signed by Attending: Coverage Notice Comment: DEBBIE SIGNED FOR LTAC. WITH CHOICES OF 1 [facility], 2 [facility], AND ANY AVAILABLE OPEN BED. Last DP export: 09/25/19 2:07 p Patient Name: PAOLO WILLINGHAM Page [id number] at 1600 All edits/amendments must be made on the electronic document DICTATION DATE: 09/25/19 1600 FOREIGN CLERK: DOUG 09/25/19 1600 RPT#: [id number] DC DATE: STATUS: ADM IN [facility] [address] [place] [address] END OF REPORT
--- NOTE | 2019-09-25 17:15 | NUR ---
NO NEEDS NOTED AT THIS TIME, WILL CON'T TO MONITOR
--- NOTE | 2019-09-25 19:30 | NUR ---
REPORT REC'D AND CARE ASSUMED, REC'D PT AWAKE ON VENT WILL TRACK WITH EYES BUT DOES NOT TRY TO VERBALLY RESPOND OR FOLLOW COMMANDS, SEE FLOWSHEET FOR VENT SETTINGS, MAEE, SCABS/SORES NOTED TO BILAT ARMS, LEGS SCALY, RIJ CVL D51/2NS @ 30CC/HR, TRACH MIDLINE #9.0, PALE YELLOW/WHITE SECRETIONS NOTED AROUND TRACH, ABD SOFT, PEG TUBE WITH PULMOCARE @ 40CC/HR AND 50CC Q4HR FLUSH, MAHAN PATENT DRAINING CONCENTRATED URINE, PP WEAK, AIR OVERLAY MATTRESS IN USE, SR UP X 2, VISIBLE TO NURSES STATION.
--- NOTE | 2019-09-25 20:45 | NUR ---
EVENING MEDS GIVEN, ORAL CARE PROVIDED, VSS.
--- NOTE | 2019-09-25 22:00 | NUR ---
PROTEINEX PLACED IN PEG ORDERED, PT REPOSITIONED ONTO LEFT SIDE SUPPORTED WITH WEDGES, ARMS ELEVATED ON PILLOWS, WILL CONTINUE TO MONITOR FOR CHANGES.
--- NOTE | 2019-09-25 23:30 | NUR ---
REASSESSMENT COMPLETED, PT RESTING ON VENT EYES CLOSED, RESP RATE 18, TRACH SUCTIONED WITH WHITE RETURN, RESIDUAL FROM PEG 0 AT THIS TIME, SR UP X 2 VISIBLE TO NURSES STATION.
[2019-09-26] VITALS (16 sets, daily range): BP systolic 122–153; BP diastolic 59–87
--- NOTE | 2019-09-26 01:30 | NUR ---
NO CHANGES IN STATUS
--- NOTE | 2019-09-26 03:00 | NUR ---
REASSESSMENT COMPLETED, NO CHANGES FROM PREVIOUS ASSESSMENT
--- NOTE | 2019-09-26 05:45 | NUR ---
PT REPOSITIONED UP IN BED AND ONTO RIGHT SIDE SUPPORTED WITH WEDGES, ORAL CARE PROVIDED, VSS.
--- NOTE | 2019-09-26 08:25 | NUR ---
UP IN BED AWAKE AT THIS TIME, PT OPENS EYES WHEN SPOKEN TO, NOT FOLLOWING COMMANDS, DOES MOVE EXTERMITIES. VSS. PT TURNED Q2H. ORAL CARE PROVIDED Q2H. WILL CONTINUE PLAN OF CARE.
[2019-09-26 09:23] LABS: BASOPHILS 2.6 % (0-2); EOSINOPHILS 7.7 % (0-7); HEMATOCRIT 24.5 % (42.0-54.0); HEMOGLOBIN 7.8 g/dL (13.5-17.5); IMMATURE GRANULOCYTES 1.6 % (0-5); LYMPHOCYTES 19.8 % (15-50); MCH 29.9 pg (26.0-34.0); MCHC 31.8 g/dL (31.0-37.0); MCV 93.9 fL (80.0-100.0); MEAN PLATELET VOLUME 10.1 fL (7.4-10.4); MONOCYTES 22.2 % (2-11); NEUTROPHILS 46.1 % (40-80); RBC 2.61 10x6/uL (4.20-6.10); RDW 14.5 % (11.5-14.5)
[2019-09-26 09:27] LABS: PLATELET COUNT 361 10x3/uL (130-400)
[2019-09-26 09:37] LABS: ANION GAP 6.4 mmol/L (8-16); CALCIUM 8.1 mg/dL (8.5-10.1); CARBON DIOXIDE 27.6 mmol/L (21.0-32.0); CREATININE - SERUM 1.2 mg/dL (0.6-1.3)
--- NOTE | 2019-09-26 10:24 | NUR ---
PER TRANSFER CENTER, PT WILL PROBABLY BE ACCEPTED BY [facility] BUT NEED LAB RESULTS FOR TODAY. LAB RESULTS SENT TO TRANFER CENTER AT THIS TIME. VSS. NO ACUTE DISTRESS NOTED. WILL CONTINUE PLAN OF CARE.
--- NOTE | 2019-09-26 10:33 | NUR ---
H&H IS 7.8/24.5, DR BALKE PAGED FOR FURTHER ORDERS.
--- NOTE | 2019-09-26 10:49 | NUR ---
PER TRANSFER CENTER, "WE ALSO NEED UPDATES EMAR ON PT FOR TODAY." SENT REQUESTED.
--- NOTE | 2019-09-26 12:37 | NUR ---
NO ACUTE DISTRESS NOTED. NO CHANGE. VSS. TURNED Q2H, ORAL CARE PROVIDED Q2H. WILL CONTINUE PLAN OF CARE.
--- NOTE | 2019-09-26 14:00 | NUR ---
PER DR HERNANDEZ ORDERS: OLD MAHAN DC, CATHETER TIP INTACT. NEW MAHAN PLACED PER STERILE PROCEDURE PER ORDERS, 18F, AMBERED COLORED URINE FLOWING INTO CLOSED CONTAINER. UA SPECIMEN OBTAINED AND SENT TO LAB. POTASSIUM LEVEL COVERED PER PROTOCOL. AND WAITING FOR BLOOD TO BE READY FROM BLOOD BANK TO ADMIN 1 U PRBC PER ORDERS. WAS UNABLE TO GET AHOLD OF DR BLAKE, DR HERNANDEZ NOTIFIED OF THIS AND GAVE THE ORDER TO ADMIN BLOOD. VSS. NO ACUTE DISTRESS NOTED. ALSO NOTED PT HAS BEEN ACCEPTED TO [facility] PER TRANSFER CENTER. ACCEPTING PHYSICIAN IS DR JOSIAH VELARDE TO ROOM 6011. WILL CALL REPORT SHORTLY.
--- NOTE | 2019-09-26 14:14 | NUR ---
PER BLOOD BANK, 1 U PRBC IS READY. WILL ADMIN SHORTLY.
--- NOTE | 2019-09-26 14:38 | NUR ---
CHG BATH ADMIN. MAHAN CARE PROVIDED.
--- NOTE | 2019-09-26 15:22 | NUR ---
PTS SON, SANDRO WILLINGHAM, UPDATED OF PTS ACCEPTANCE TO [facility]. UPDATES PROVIDED. NO ACUTE DISTRESS NOTED. VSS. PT CURRENTLY RECIEVING 1 U PRBC ORDERED, TOLERATING WELL. ALSO REPORT CALLED TO RECIEVING NURSE, RYAN CAGLE RN, AT [facility] AT PHONE NUMBER [phone]. WILL CALL AMBULANCE FOR PT TO BE TRANSFERRED WHEN BLOOD COMPLETE. WILL CONTINUE PLAN OF CARE.
[2019-09-26 16:06] LABS: BILIRUBIN NEGATIVE (NEGATIVE); GLUCOSE NEGATIVE (NEGATIVE); KETONE NEGATIVE (NEGATIVE); NITRITE NEGATIVE (NEGATIVE); SPECIFIC GRAVITY 1.015 (1.005-1.020); UROBILINOGEN NORMAL (NORMAL)
[2019-09-26 16:15] LABS: RED CELLS - URINE 25-50 /hpf (0-5)
[2019-09-26 16:16] LABS: AMORPHOUS SEDIMENT >1+ /lpf (NONE SEEN); BACTERIA MODERATE /hpf (NEGATIVE); EPITHELIAL CELLS 0-5 /hpf (0-5); GRANULAR CAST 0-5 /lpf (NONE SEEN); HYALINE CAST 0-5 /lpf (NONE SEEN)
--- NOTE | 2019-09-26 16:25 | NUR ---
CALLED [facility] BY [facility] FOR PT TO TRANSFER TO [facility] PL[facility]EMENT AT [facility]. STATED WILL BE HERE IN ABOUT 45 MIN.
--- NOTE | 2019-09-26 17:16 | NUR ---
PER [facility], "WILL BE THERE IN 30 MIN."
--- NOTE | 2019-09-26 17:33 | NUR ---
CVL DRESSING CHANGE PROVIDED TO LT IJ, OLD DRESSING NOTED NO LONGER ADHERENT TO SKIN, DRESSING CHANGE PER HOSPITAL PROTOCOL. SITE WDL NO REDNESS OR DRAINAGE NOTED TO SITE. VSS. WILL CONTINUE PLAN OF CARE.
--- NOTE | 2019-09-26 17:48 | NUR ---
POTASSIUM RECKECK LEVEL IS 3.3, REPLACED PER PROTOCOL. RECHECK SCHEDULED PER PROTOCOL.
--- NOTE | 2019-09-26 18:22 | NUR ---
PT DISCHARGED AT THIS TIME, TRANSFERRED TO [facility] AT [facility]. VSS. NO ACUTE DISTRESS NOTED. NO FURTHER ACTIONS.
--- NOTE | 2019-09-28 08:34 | MORECARE ---
CASE MANAGEMENT DISCHARGE SUMMARY PATIENT: PAOLO WILLINGHAM UNIT: [id number] ADM DATE: 08/24/19 AGE: 83 : 39 SEX: M ROOM/BED: D.2304 AUTHOR: JON,DOC PHYSICIAN: REFERRING PHYSICIAN: SHILO HERNANDEZ MD DATE OF SERVICE: 09/28/19 Discharge Plan Patient Name: PAOLO WILLINGHAM Facility: [facility]:[place] : 1935 Planned Disposition: Home with Home Health Anticipated Discharge Date: Discharge Date: 09/26/2019 Expected LOS: Initial Reviewer: [id number] Initial Review Date: 08/24/2019 Generated: 09/28/19 9:33 am Comments DCP- Discharge Planning Updated by [email or web address]: Kera Nolan on 09/25/19 2:[address] Patient Name: PAOLO WILLINGHAM Encounter No: [id number] : 1935 Primary Insurance: [facility] [employer] Anticipated DC Date: Planned Disposition: Home with Home Health External Planned Provider: : DCP follow-up note: 09/24/2019 CM [facility] [phone] regarding referral sent yesterday. [facility] stated that they are awaiting a bed that they are suppose to have some discharges today and would possibly be able to take him tomorrow Saturday09/25/19. CM will continue to follow and assist as needed with discharge planning / needs. THEO HURST,CM 09/25/2019@ 1230- CM CALLED [facility] FOR UPDATE. SPOKE WITH ARTUR AT [phone] WHO STATED THEY HAVE NO AVAILABEL BEDS, AND ARE NOT EXPECTING TO HAVE ANY OPENED BEDS FOR NEXT WEEK. CALLED THE TRANSFER SERVICE AT AND SPOKE WITH THELMA. SHE STATED SHE WOULD ASSIST THE TRANSFER. CM ASSISTED WITH COVID SCREENING. FAXED CLINICALS TO [phone]. CM WILL CONTINUE TO FOLLOW AND ASSIST NEDED. Kera Nolan MSN,RN,CM 09/25/2019 1350. CM SPOKE WITH SANDRO ABOUT THE AVAILIBILTY OF OTHER CHOICES FOR LTAC. DEBBIE SIGNED FOR #1 [facility], 2)[facility], 30 ANY AVAILABLE OPEN BED. TRANSFER CENTER STATED THEY ARE HAVIDNG DIFFICULTY GETTING FAXES, AND THERE ARE AVAILABLE BEDS IN [facility], AND [facility]. CALLED [facility] AND SPOKE WITH STEPH AT [phone]. STATED THEY HAD AN AVAILABLE BED. FAXED OVER CLINICALS. WILL AWAIT DC. Patient and family in agreement with discharge plan. Case management will follow and assist as needed. Kera Nolan MSN,RN,CM DCP- Discharge Planning Updated by [id number]: Kera Nolan on 09/25/19 12:[address] Patient Name: PAOLO WILLINGHAM Encounter No: [id number] : 1935 Primary Insurance: [facility] [employer] Anticipated DC Date: Planned Disposition: Home with Home Health External Planned Provider: : DCP follow-up note: 09/24/2019 CM spoke with Melia TORRES [phone] regarding referral sent yesterday. [facility] stated that they are awaiting a bed that they are suppose to have some discharges today and would possibly be able to take him tomorrow Saturday09/25/19. CM will continue to follow and assist as needed with discharge planning / needs. THEO HURST,CM 09/25/2019@ 1230- CM CALLED [facility] FOR UPDATE. SPOKE WITH ARTUR AT [phone] WHO STATED THEY HAVE NO AVAILABEL BEDS, AND ARE NOT EXPECTING TO HAVE ANY OPENED BEDS FOR NEXT WEEK. CALLED THE TRANSFER SERVICE AT AND SPOKE WITH THELMA. SHE STATED SHE WOULD ASSIST THE TRANSFER. CM ASSISTED WITH COVID SCREENING. FAXED CLINICALS TO [phone]. CM WILL CONTINUE TO FOLLOW AND ASSIST NEDED. Kera CABALLERO,RN,CM DCP- Discharge Planning Updated by [id number]: Romy Main on 09/24/19 9:[address] CM spoke with Melai TORRES [phone] regarding referral sent yesterday. [facility] stated that they are awaiting a bed that they are suppose to have some discharges today and would possibly be able to take him tomorrow Saturday09/25/19. CM will continue to follow and assist as needed with discharge planning / needs. DCP- Discharge Planning Updated by [id number]: Romy Main on 09/23/19 7:[address] Nursing called and spoke with Brett this am on making a decision on LTACH. CM received a call back from patient's son Sandro that they would like for patient to go to [facility] @ [facility] [place] or [facility]. DEBBIE completed. CM faxed records to [facility] awaiting decision / auth from insurance. CM will continue to follow and assist as needed with discharge planning / needs. DCP- Discharge Planning Updated by [id number]: Romy Main on 09/23/19 8:[address] CM called and spoke with Brett again yesterday regarding LTACH placement. He stated they are still looking at facilities. HE STATED THIS IS GOING TO TAKE A LITTLE TIME. CM stated that we need to know [facility]. CM will continue to follow and assist as needed with discharge planning / needs. DCP- Discharge Planning Updated by [id number]: Romy Main on 09/21/19 7:[address] CM spoke with Brett Willingham patient's nephew regarding LTACH placement. CM gave him names and numbers of facilities within the state. Brett stated he would research facilities and get back in touch with CM with decision. CM will continue to follow and assist as needed with discharge planning needs. DCP- Discharge Planning Updated by [id number]: Romy Main on 09/18/19 6:[address] CM called to speak to son Sandro Willingham to discuss LTACH options. Sandro stated that he would call back tomorrow he wanted to speak to his cousin Brett. CM will continue to follow and assist as needed with discharge planning / needs. DCP- Discharge Planning Updated by [email or web address]: Romy Main on 08/27/19 5:[address] Patient Name: PAOLO WILLINGHAM Admission Status: ER Accout number: [id number] Admission Date: 08-24-2019 : 1935 Admission Diagnosis:SEPSIS, UNSPECIFIED ORGANISM Attending: SHILO HERNANDEZ Current LOS: 3 Anticipated DC Date: Planned Disposition: Home with Home Health Primary Insurance: [facility] [employer] Discharge Planning Comments: CM met with patient and nephew Brett Adriana to complete initial dc planning assessment. CM educated patient on the CM role and verbal consent given by patient to complete assessment. CM verified patient's address, phone number, and emergency contact phone numbers. Patient lives at home independently. Patient live in small apartment on Brett's property. CM discussed availability of home health, rehab services, and medical equipment. Patient has home health with [facility] and plans to resume upon discharge. DEBBIE signed. Patient has home / portable 02and nebulizer with unknown provider. Brett is concerned that patient may require more care that HH can provide upon discharge. CM explained that we will re-evaluate closer to discharge. CM will continue to follow and will assist as needed with dc plans/needs. Middle School Band Teacher: Romy Main DCP- Discharge Planning Updated by [id number]: Romy Main on 08/25/19 2:[address] CM attempted to complete discharge planning assessment. Patient is currently on vent and sedated. No family available. CM attempted to call lisseth Willingham [phone] but didn't get an answer. CM will continue to follow and assist as needed with discharge planning / needs. CM received a call from [facility] that the patient was under their care. They plan to resume care with him upon discharge. DCPIA - Discharge Planning Initial Assessment Updated by [id number]: Romy Main on 08/27/19 6:31 pm * Is the patient Alert and Oriented? No * How many steps to enter\exit or inside your home? * PCP JASMIN JHA * Pharmacy [facility] * Preadmission Environment Home Alone * ADLs Independent * Other Equipment HOME/ PORTABLE 02, NEBULIZER * List name and contact numbers for known caregivers / representatives who currently or will assist patient after discharge: BRETT JONES - [phone] SANDRO BAINS - [phone] * Verbal permission to speak to the caregivers and representatives has been obtained from the patient. N/A * Community resources currently utilized Home Health * Please name any agencies selected above. [facility] * Additional services required to return to the preadmission environment? No * Can the patient safely return to the preadmission environment? Yes * Has this patient been hospitalized within the prior 30 days at any hospital? No Coverage Notice Reviewer: [id number] - Romy Main Notice Issued Date-Time: 08/27/2019 18:24 Notice Type: Patient Choice Letter Notice Delivered To: Family Member Relationship to Patient: Nephew [employer] Name: Brett Willingham Delivery Method: HAND - Hand Delivered Lisa Days: Prior Verbal Notification: Recipient Understood Notice: Yes Recipient Signature: Yes Med Rec Note Co-signed by Attending: Coverage Notice Comment: Tanner Tavares [facility] Reviewer: [id number] Ramsey Main Notice Issued Date-Time: 09/23/2019 11:27 Notice Type: Patient Choice Letter Notice Delivered To: Family Member Relationship to Patient: Son [employer] Name: SANDRO WILLINGHAM Delivery Method: PHONE - Phone Lisa Days: Prior Verbal Notification: Recipient Understood Notice: Yes Recipient Signature: Yes Med Rec Note Co-signed by Attending: Coverage Notice Comment: [facility] Reviewer: [id number] Ramsey Nolan Notice Issued Date-Time: 09/25/2019 13:50 Notice Type: Patient Choice Letter Notice Delivered To: Family Member Relationship to Patient: Child No Finc Resp [employer] Name: SANDRO WILLINGHAM Delivery Method: PHONE - Phone Lisa Days: Prior Verbal Notification: Yes Recipient Understood Notice: Yes Recipient Signature: Med Rec Note Co-signed by Attending: Coverage Notice Comment: DEBBIE SIGNED FOR LTAC. WITH CHOICES OF 1 [facility], 2 [facility], AND ANY AVAILABLE OPEN BED. Last DP export: 09/25/19 3:00 p Patient Name: PAOLO WILLINGHAM Page [id number] at 0834 All edits/amendments must be made on the electronic document DICTATION DATE: 09/28/19832 ITALIAN TUTOR: DOUG 09/28/19832 RPT#: [id number] DC DATE:09/26/19 STATUS: DIS IN [facility] [address] [place] [address] END OF REPORT
[2019-09-28 09:08] LABS: FUNGUS MYCOLOGY CULTURE Final report (())
== END 2019-09-26 18:23 | DRG 4 ==
LOC: D.ER 17:00 → D.MS 17:37 → D.ICU 17:37 → D.MS 09-11 17:30 → D.ICU 09-15 13:27
PROVIDERS: Family Medicine; Internal Medicine Cardiovascular Disease; Internal Medicine Hematology & Oncology; Internal Medicine Interventional Cardiology; Internal Medicine Pulmonary Disease; Surgery; ADMIT Internal Medicine Nephrology; ATTEND Internal Medicine Nephrology
PROC: 5A1945Z Respiratory Ventilation, 24-96 Consecutive Hours (ICD-10-PCS; 2019-08-25)
PROC: 5A1955Z Respiratory Ventilation, Greater than 96 Consecutive Hours (ICD-10-PCS; principal; 2019-08-30)
PROC: 0BH17EZ Insertion of Endotracheal Airway into Trachea, Via Natural or Artificial Opening (ICD-10-PCS; 2019-08-30)
PROC: 0B9F8ZX Drainage of Right Lower Lung Lobe, Via Natural or Artificial Opening Endoscopic, Diagnostic (ICD-10-PCS; 2019-08-30)
PROC: 05HM33Z Insertion of Infusion Device into Right Internal Jugular Vein, Percutaneous Approach (ICD-10-PCS; 2019-08-30)
PROC: 0B9F8ZX Drainage of Right Lower Lung Lobe, Via Natural or Artificial Opening Endoscopic, Diagnostic (ICD-10-PCS; 2019-09-04)
PROC: 0BC28ZZ Extirpation of Matter from Carina, Via Natural or Artificial Opening Endoscopic (ICD-10-PCS; 2019-09-05)
PROC: B2111ZZ Fluoroscopy of Multiple Coronary Arteries using Low Osmolar Contrast (ICD-10-PCS; 2019-09-07)
PROC: 4A023N7 Measurement of Cardiac Sampling and Pressure, Left Heart, Percutaneous Approach (ICD-10-PCS; 2019-09-07)
PROC: 0B9F8ZX Drainage of Right Lower Lung Lobe, Via Natural or Artificial Opening Endoscopic, Diagnostic (ICD-10-PCS; 2019-09-07)
PROC: 0B9B8ZZ Drainage of Left Lower Lobe Bronchus, Via Natural or Artificial Opening Endoscopic (ICD-10-PCS; 2019-09-15)
PROC: 0B988ZZ Drainage of Left Upper Lobe Bronchus, Via Natural or Artificial Opening Endoscopic (ICD-10-PCS; 2019-09-15)
PROC: 0B938ZZ Drainage of Right Main Bronchus, Via Natural or Artificial Opening Endoscopic (ICD-10-PCS; 2019-09-15)
PROC: 0B978ZZ Drainage of Left Main Bronchus, Via Natural or Artificial Opening Endoscopic (ICD-10-PCS; 2019-09-15)
PROC: 5A1935Z Respiratory Ventilation, Less than 24 Consecutive Hours (ICD-10-PCS; 2019-09-15)
PROC: 0BH17EZ Insertion of Endotracheal Airway into Trachea, Via Natural or Artificial Opening (ICD-10-PCS; 2019-09-15)
PROC: 0DH63UZ Insertion of Feeding Device into Stomach, Percutaneous Approach (ICD-10-PCS; 2019-09-18)
PROC: 0B9M8ZX Drainage of Bilateral Lungs, Via Natural or Artificial Opening Endoscopic, Diagnostic (ICD-10-PCS; 2019-09-18)
PROC: 0B113F4 Bypass Trachea to Cutaneous with Tracheostomy Device, Percutaneous Approach (ICD-10-PCS; 2019-09-18 09:00)
DX: A41.9 Sepsis, unspecified organism (principal); J96.22 Acute and chronic respiratory failure with hypercapnia; J96.21 Acute and chronic respiratory failure with hypoxia; I46.9 Cardiac arrest, cause unspecified; G92 Toxic encephalopathy; I21.A1 Myocardial infarction type 2; R65.21 Severe sepsis with septic shock; I50.33 Acute on chronic diastolic (congestive) heart failure; N39.0 Urinary tract infection, site not specified; E87.0 Hyperosmolality and hypernatremia; J44.1 Chronic obstructive pulmonary disease with (acute) exacerbation; T17.890A Other foreign object in other parts of respiratory tract causing asphyxiation, initial encounter; I82.612 Acute embolism and thrombosis of superficial veins of left upper extremity; I11.0 Hypertensive heart disease with heart failure; E03.9 Hypothyroidism, unspecified; R68.0 Hypothermia, not associated with low environmental temperature; E66.9 Obesity, unspecified; Z68.32 Body mass index [BMI] 32.0-32.9, adult; F17.200 Nicotine dependence, unspecified, uncomplicated